=== PATIENT | male | born 1955 | race Caucasian/White ===

== ENCOUNTER 2021-09-12 17:32 | Inpatient (IN) | payer MEDICAID ==
[~2021-09-12] VITALS: Ht 160 cm; Wt 69.0 kg
[~2021-09-12 17:32] MED LIST: ATOR20TA PO; LISI20TA28 PO; METF-1203 PO; NICO-668 BC; NICO-687 TD; OLAN5TAB29 PO; PALI156D IM; PIOG15TA67 PO
[2021-09-12] MEDS ORDERED: NICOTINE POLACRILEX 2 MG LOZENGE BC PRN (20:20)
[2021-09-12] MEDS ORDERED: acetaminophen 325mg tablet PO PRN ×2 (20:20)
[2021-09-12] MEDS ORDERED: mag hydrox/Alum hydrox/simeth 30ml oral suspension PO PRN (20:20)
[2021-09-12] MEDS ORDERED: magnesium hydroxide 30ml (MOM) UD suspension PO PRN (20:20)
[2021-09-12] MEDS ORDERED: loperamide 2mg capsule PO PRN (20:20)
[2021-09-12] MEDS ORDERED: POLY119P2 PO (20:42)
[2021-09-12] MEDS ORDERED: CLON1TAB95 PO (20:44)
[2021-09-12 21:08] VITALS: BP 120/72
[2021-09-12] MEDS: atorvastatin 20mg tablet PO SCH (21:26)
[2021-09-12] MEDS: clonazePAM 1mg tablet PO SCH (21:26)
--- NOTE | 2021-09-12 22:19 | NUR ---
Nursing Admission Note: Patient is a 66 year old male admitted on a 5150 for GD. He was originally brought into [facility] via EMS after being found face down and unconscious. Patient is homeless; unable to contract for food, [place] [facility] and clothing. Hx of schizoaffective disorder with psychosis, DMII, HTN, hyperlipidemia. Patient is pleasant and cooperative with admission. He currently denies SI, HI, A/VH; does not appear to be responding to IS.
[2021-09-13 08:25] VITALS: BP 157/72
[2021-09-13] MEDS: polyethylene glycol 3350 17gm powd pack PO SCH (08:58)
[2021-09-13 09:29] LABS: CHOL/HDL RATIO 2.7 (0.00-4.99); CHOLESTEROL 105 MG/DL (0-200); HDL CHOLESTEROL 39 MG/DL (35-60); LDL CHOLESTEROL 53 MG/DL (50-100); TRIGLYCERIDES 98 MG/DL (20-135)
--- NOTE | 2021-09-13 16:08 | NUR ---
Nursing Progress Note: Legal hold: 5150 Client on involuntary status for GD Report received from nurseBasim RN with use of SBAR. Why are they here: Initial evaluation was done at [facility] in [place], [place]. Patient was brought in to [facility] ED for medical clearance by a mental health worker. Patient was admitted into the hospital, he was diagnosed had rhabdomyolysis. Patient was unable to access basic life necessities such as food longterm or clothing. History of schizoaffective disorder Assessment What has happened this shift: Pt spent most the time on his bed with headphones on sleeping. He was up for meals and snacks. Per the hospitalist "pt most likely could benefit from Metformin." A1c 7.9. Pt slept until breakfast. Then slept untlil the next meal or snack. Encouraged pt to shower. S/I, H/I: denies A/VH: smiled Sleep: Slept most of the shift ADL's: Needs shower Group attendance: N/A Were meds taken: Yes Any med S/E: None noted or observed Mental Status Exam Appearance: Older small male with balding greyish hair wearing personal clothing and shoes Eye contact: Fair Behavior: Isolative, cooperative Speech: poverty of speech Mood: Patient Affect: Congruent with mood Thought process: poverty of thought Thought Content: unable to access Cognition: Alert Insight: Poor Judgment: Poor Interventions PRN's used: N/A Therapeutic interventions: Provided physical assessment and MSE. Encouraged ADL's, medications administration/education/monitoring, q 15 safety checks. Restraints/seclusion/emergency medication: N/A Justification: Pt is in need of medication he requires medication adjustments and does not have a viable plan for discharge at this time.
[2021-09-13 20:11] VITALS: BP 130/63
[2021-09-13] MEDS: clonazePAM 1mg tablet PO SCH (20:20)
[2021-09-13] MEDS: atorvastatin 20mg tablet PO SCH (20:20)
--- NOTE | 2021-09-14 00:33 | NUR ---
Nursing Progress Note: Legal hold: 5150 Client on involuntary status for GD Report received from nurse, Jon RN with use of SBAR. Why are they here: Initial evaluation was done at [facility] in [place], [place]. Patient was brought in to [facility] ED for medical clearance by a mental health worker. Patient was admitted into the hospital, he was diagnosed had rhabdomyolysis. Patient was unable to access basic life necessities such as food longterm or clothing. History of schizoaffective disorder Assessment What has happened this shift: Pt spent most the time on his bed with headphones on and napping. He was up for snacks. Pt was med compliant and keep to him self. S/I, H/I: denies A/VH: smiled Sleep: See sleep assessment ADL's: Needs shower Group attendance: N/A Were meds taken: Yes Any med S/E: None noted or observed Mental Status Exam Appearance: Older small male with balding greyish hair wearing personal clothing and shoes Eye contact: Fair Behavior: Isolative, cooperative Speech: poverty of speech Mood: Patient Affect: Congruent with mood Thought process: poverty of thought Thought Content: unable to access Cognition: Alert Insight: Poor Judgment: Poor Interventions PRN's used: N/A Therapeutic interventions: Provided physical assessment and MSE. Encouraged ADL's, medications administration/education/monitoring, q 15 safety checks. Restraints/seclusion/emergency medication: N/A Justification: Pt is in need of medication he requires medication adjustments and does not have a viable plan for discharge at this time.
[2021-09-14 08:00] VITALS: BP 119/56
[2021-09-14] MEDS: polyethylene glycol 3350 17gm powd pack PO SCH (08:03)
--- NOTE | 2021-09-14 11:03 | NUR ---
Diabetes Consult: Noted Pt A1C 7.9 DM education not appropriate at this time given Pt condition. Will defer until Pt more appropriate. Addendum: 09/14/21 at 1104 by Lucas Harley - Trimmer And Borer Machine Operator RD Amended: Links added. Addendum: 09/14/21 at [address] I have reviewed and agree w/ note by Trimmer And Borer Machine OperatorHaider Maldonado RD
--- NOTE | 2021-09-14 16:52 | NUR ---
Nursing Progress Note: Legal hold: 5150 Client on involuntary status for GD Report received from nurse, Delmy RODRIGUEZ with use of SBAR. Why are they here: Initial evaluation was done at [facility] in [place], [place]. Patient was brought in to [facility] ED for medical clearance by a mental health worker. Patient was admitted into the hospital, he was diagnosed had rhabdomyolysis. Patient was unable to access basic life necessities such as food jail or clothing. History of schizoaffective disorder Assessment What has happened this shift: Pt spent most the time on his bed with headphones on sleeping. He was up for meals and snacks. Pt slept until breakfast. Then slept until the next meal or snack. Encouraged pt to shower and patient did. Zeke isolates most of the time other than meals. S/I, H/I: denies A/VH: "I think so" Sleep: Slept most of the shift ADL's: showered today Group attendance: N/A Were meds taken: Yes Any med S/E: None noted or observed Mental Status Exam Appearance: Older small male with balding greyish hair wearing personal clothing and shoes Eye contact: Fair Behavior: Isolative, cooperative Speech: poverty of speech Mood: Patient Affect: Congruent with mood Thought process: poverty of thought Thought Content: unable to access, barley answers question with more than yes and no Cognition: Alert Insight: Poor Judgment: Poor Interventions PRN's used: N/A Therapeutic interventions: Provided physical assessment and MSE. Encouraged ADL's, medications administration/education/monitoring, q 15 safety checks. Restraints/seclusion/emergency medication: N/A Justification: Zeke has failed several out patient treatment plans and [facility] Today patient is unable to plan for a safe discharge, Zeke just shruggs his shoulders when asked about food, clothing or jail.
[2021-09-14] MEDS: clonazePAM 1mg tablet PO SCH (20:10)
[2021-09-14] MEDS: risperiDONE 0.5mg tablet PO SCH (20:10)
[2021-09-14] MEDS: atorvastatin 20mg tablet PO SCH (20:10)
[2021-09-14 20:33] VITALS: BP 102/56
[2021-09-14 20:34] VITALS: BP 105/56
--- NOTE | 2021-09-15 00:35 | NUR ---
Nursing Progress Note: Legal hold: 5150 Client on involuntary status for GD Report received from nurse, Claire RODRIGUEZ with use of SBAR. Why are they here: Initial evaluation was done at [facility] in [place], [place]. Patient was brought in to [facility] ED for medical clearance by a mental health worker. Patient was admitted into the hospital, he was diagnosed had rhabdomyolysis. Patient was unable to access basic life necessities such as food retirement or clothing. History of schizoaffective disorder Assessment What has happened this shift: Pt isolated to his room sleeping awakened for meds and was compliant. Pt woke a couple times during the shift and sat in his room. S/I, H/I: denies A/VH: "I think so" Sleep: Slept most of the shift ADL's: showered today Group attendance: N/A Were meds taken: Yes Any med S/E: None noted or observed Mental Status Exam Appearance: Older small male with balding greyish hair wearing personal clothing and shoes Eye contact: Fair Behavior: Isolative, cooperative Speech: poverty of speech Mood: Patient Affect: Congruent with mood Thought process: poverty of thought Thought Content: unable to access, barley answers question with more than yes and no Cognition: Alert Insight: Poor Judgment: Poor Interventions PRN's used: N/A Therapeutic interventions: Provided physical assessment and MSE. Encouraged ADL's, medications administration/education/monitoring, q 15 safety checks. Restraints/seclusion/emergency medication: N/A Justification: Zeke has failed several out patient treatment plans and is in need of evaluation for more [facility]. Today patient is unable to plan for a safe discharge, Zeke just shruggs his shoulders when asked about food, clothing or retirement.
[2021-09-15 07:57] VITALS: BP 114/61
[2021-09-15] MEDS: polyethylene glycol 3350 17gm powd pack PO SCH (08:03)
--- NOTE | 2021-09-15 13:51 | NUR ---
Pt attended group today. We talked about reframing thoughts utilizing a picture where they had to write down what thoughts there were struggling with today. Patients then constructed Vision Pages/Collages with inspiring words and pictures to work toward rewiring these thoughts into positive affirmations. Pt. was hesitant at first to engage in the collage process but once he started looking through magazines he got into it. He was able to share that the pictures were images that made him happy. He had an ice cream, a picture of the t.v personality Ynes,and a pretty garden. His thought content appeared WNL and his thought process appeared a bit scattered. He was alert and oriented X 4. His demeanor remained calm and compliant throughout the group. He seemed to enjoy himself, he was open to this Test Data Developer helping him put his collage together. He shared with the group about his collage with this Test Data Developer's help as well. Brandi Patel LCSW
--- NOTE | 2021-09-15 14:39 | NUR ---
Nursing Progress Note: Legal hold: 5150 Client on involuntary status for GD Report received from nurse, Rosario RN with use of SBAR. Why are they here: Initial evaluation was done at [facility] in [place], [place]. Patient was brought in to [facility] ED for medical clearance by a mental health worker. Patient was admitted into the hospital, he was diagnosed had rhabdomyolysis. Patient was unable to access basic life necessities such as food fdc or clothing. History of schizoaffective disorder Assessment What has happened this shift: Pt was up for breakfast. Pt was cooperative with his scheduled Miralax. Pt attended morning group. Spoke with SERGIO Chu about reinstating pt's diabetic meds that he was taking in the community. Pt's Hgb A1c was 7.9. Metformin 1000 mg BID, Actos 30 mg, and lisinopril 10 mg daily restarted. Pt denies depression/SI/HI/VH. Pt does have AH. Pt denies CAH. Pt states there is one voice which is negative. Sometimes the voice will say threatening things like, "you'll be ." Pt smiles and states, "but I don't believe them, they don't own me." Pt briefly laughs. Positive reinforcement provided for pt's insight and ability to dismiss the voices. S/I, H/I: Pt denies A/VH: +AH Sleep: Pt slept 7.25 hours last night per noc shift report, pt naps intermittently throughout the day. ADL's: Independent Group attendance: yes Were meds taken: Yes; just Metamucil ordered this morning. Any med S/E: None noted or reported. Mental Status Exam Appearance: Older small male with balding greyish hair wearing personal clothing and shoes Eye contact: Good Behavior: Pleasant, cooperative, listens to radio headphones. Speech: clear, audible, normal rate & rhythm. Mood: Euthymic Affect: Appropriate to situation. Thought process: Linear Thought Content: He doesn't believe the voices, they don't own him. Cognition: A/O X 3 Insight: Fair Judgment: Fair Interventions PRN's used: None Therapeutic interventions: 1:1 assessment, therapeutic conversation, active listening, medication administration/education/monitoring, encouragement to participate in unit activities and attend groups, provided distraction, redirection, positive reinforcement, and Q15 minute safety checks. Restraints/seclusion/emergency medication: N/A Justification: Zeke has failed several out patient treatment plans and is in need of evaluation for more county services. Pt is unable to formulate a viable plan for food, clothing, or fdc.
[2021-09-15] MEDS ORDERED: metFORMIN 500mg tablet PO ONE (17:00)
--- NOTE | 2021-09-15 17:16 | NUR ---
Group Art Tx, Continued: Patient was able to focus and complete the activity as presented. He was able to share during the group process and was supportive of others. His topic shared focused on thinking positive thoughts, his spiritual beliefs and the use of his humor. *Please refer to the [facility] Case Notes for entire overview. Cristal Esparza MA, DIRECTOR INPATIENT HEADACHE PROGRAM #[id number] [facility] Art Therapist Addendum: 09/15/21 at 1718 by Cristal Esparza SS Amended: Links added.
[2021-09-15] MEDS: atorvastatin 20mg tablet PO SCH (20:10)
[2021-09-15] MEDS: clonazePAM 1mg tablet PO SCH (20:11)
[2021-09-15] MEDS: risperiDONE 0.5mg tablet PO SCH (20:11)
[2021-09-15 20:34] VITALS: BP 137/68
--- NOTE | 2021-09-16 00:13 | NUR ---
Nursing Progress Note: Legal hold: 5150 Client on involuntary status for GD Report received from nurse, Claire RODRIGUEZ with use of SBAR. Why are they here: Initial evaluation was done at [facility] in [place], [place]. Patient was brought in to [facility] ED for medical clearance by a mental health worker. Patient was admitted into the hospital, he was diagnosed had rhabdomyolysis. Patient was unable to access basic life necessities such as food group home or clothing. History of schizoaffective disorder Assessment What has happened this shift: Pt isolated to his room sleeping awakened for meds and was compliant. Pt woke a couple times during the shift and sat in his room. S/I, H/I: denies A/VH: "I think so" Sleep: See sleep assessment ADL's: showered today Group attendance: N/A Were meds taken: Yes Any med S/E: None noted or observed Mental Status Exam Appearance: Older small male with balding greyish hair wearing personal clothing and shoes Eye contact: Fair Behavior: Isolative, cooperative Speech: poverty of speech Mood: Patient Affect: Congruent with mood Thought process: poverty of thought Thought Content: unable to access, barley answers question with more than yes and no Cognition: Alert Insight: Poor Judgment: Poor Interventions PRN's used: N/A Therapeutic interventions: Provided physical assessment and MSE. Encouraged ADL's, medications administration/education/monitoring, q 15 safety checks. Restraints/seclusion/emergency medication: N/A Justification: Zeke has failed several out patient treatment plans and is in need of evaluation for more [facility]. Today patient is unable to plan for a safe discharge, Zeke just shruggs his shoulders when asked about food, clothing or group home.
[2021-09-16] MEDS: pioglitazone 15mg tablet PO SCH (07:05)
[2021-09-16] MEDS: polyethylene glycol 3350 17gm powd pack PO SCH (07:05)
[2021-09-16] MEDS: metFORMIN 500mg tablet PO SCH ×2 (07:05→17:21)
[2021-09-16] MEDS: lisinopril 10 MG tablet PO SCH (07:34)
[2021-09-16 08:00] VITALS: BP 119/61
--- NOTE | 2021-09-16 13:50 | NUR ---
Initial: Pt admit DX schizoaffective d/o per EMR. Hx T2DM A1C 7.9% ed deferred at this time given DX. PO ~100% avg carb controlled meals meeting needs. LBM 09/14. No nutrition intervention at this time. Will continue to monitor. Rec: 1. continue carb controlled diet 2. routine bowel care 3. weekly wts Addendum: 09/16/21 at [address] Initial: Pt admit DX schizoaffective d/o per EMR. Hx T2DM A1C 7.9% ed deferred at this time given DX. PO ~100% avg carb controlled meals meeting needs. LB 09/14. No nutrition intervention at this time. Will continue to monitor. Rec: 1. continue carb controlled diet 2. routine bowel care 3. daily Glu checks given hx T2DM A1C 7.9% 4. weekly wts Addendum: 09/16/21 at [address] Amended: Links added.
--- NOTE | 2021-09-16 14:21 | NUR ---
Pt. attended group today. We discussed Radical Acceptance and Distress Tolerance skills. This Pulmonary Specialist led a visualization that Pt. participated in. We completed a Self-Care Wheel exercise as well. Pt. engaged well in the group today, he tracked with what was going on and participated in all aspects of the group. He reported that he goes for walks, journals and prays to self care and to relieve feelings of tension and anxiety. He was alert and oriented X 4. His thought content and thought process were WNL. His demeanor was calm, compliant and pleasant to work with. Brandi Patel LCSW
--- NOTE | 2021-09-16 15:30 | NUR ---
Nursing Progress Note: Legal hold: 5250 Client on involuntary status for GD Report received from nurse, Rosario RODRIGUEZ with use of SBAR. Why are they here: Initial evaluation was done at [facility] in [place], [place]. Patient was brought in to [facility] ED for medical clearance by a mental health worker. Patient was admitted into the hospital, he was diagnosed had rhabdomyolysis. Patient was unable to access basic life necessities such as food fpc or clothing. History of schizoaffective disorder Assessment What has happened this shift: Pt was up for breakfast and cooperative with medications. Pt attended afternoon group. Pt stated he had some negative voices in the morning but they faded in the afternoon. Pt states the voices are "negative." They say things regarding like that someone is going to , pt states, "but I say that's nonsense!" Pt c/o 9/10 toenail pain this morning and was given PRN Tylenol 650 mg with some effect. Pt is asking to have his toenails trimmed. Pt has long, thick, yellow toenails. Pt is a diabetic. An order was put in for a wound care consult and a message was left with inpatient wound care. S/I, H/I: Pt denies A/VH: +AH Sleep: Pt slept 8.75 hours last night per noc shift report, pt naps intermittently throughout the day. ADL's: Independent Group attendance: Yes Were meds taken: Yes Any med S/E: None noted or reported. Mental Status Exam Appearance: Older small male with balding greyish hair wearing personal clothing and slippers Eye contact: Good Behavior: Pleasant, cooperative, listens to radio headphones. Speech: Clear, audible, normal rate & rhythm. Mood: Euthymic Affect: Appropriate to situation. Thought process: Linear Thought Content: He needs his toenails trimmed. Cognition: A/O X 3 Insight: Fair Judgment: Fair Interventions PRN's used: None Therapeutic interventions: 1:1 assessment, therapeutic conversation, active listening, medication administration/education/monitoring, encouragement to participate in unit activities and attend groups, provided distraction, redirection, positive reinforcement, and Q15 minute safety checks. Restraints/seclusion/emergency medication: N/A Justification: Zeke has failed several out patient treatment plans and is in need of evaluation for more county services. Pt is unable to formulate a viable plan for food, clothing, or fpc.
--- NOTE | 2021-09-16 15:47 | NUR ---
Group Art Tx, continued: Patient was motivated and engaged in the activity and journaling. His thought process was somewhat concrete and his journaling simplified. He was positive and seemed to feel content within himself. He was able to listen to others, however, there was limited interaction or conversation initiated with his peers. *Please refer to the [facility] Case Notes for entire overview. Cristal Esparza MA, IMAGING ACCOUNT MANAGER #[id number] [facility] Art Therapist Addendum: 09/16/21 at 1549 by Cristal Esparza SS Amended: Links added.
[2021-09-16 19:47] VITALS: BP 113/57
[2021-09-16] MEDS: risperiDONE 0.5mg tablet PO SCH (20:08)
[2021-09-16] MEDS: clonazePAM 1mg tablet PO SCH (20:08)
[2021-09-16] MEDS: atorvastatin 20mg tablet PO SCH (20:08)
--- NOTE | 2021-09-17 01:32 | NUR ---
Nursing Progress Note: Legal hold: 5250 Client on involuntary status for GD Report received from nurse, Claire RODRIGUEZ with use of SBAR. Why are they here: Initial evaluation was done at [facility] in [place], [place]. Patient was brought in to [facility] ED for medical clearance by a mental health worker. Patient was admitted into the hospital, he was diagnosed had rhabdomyolysis. Patient was unable to access basic life necessities such as food correction or clothing. History of schizoaffective disorder Assessment What has happened this shift: Pt isolated to his bed all evening. When approached for 1:1, pt is friendly and cooperative but is confused about where he is. Pts only complaint is his toe nails needing to be clipped. When asked if he hears voices, he replies, I dont think so. All hs meds taken without issue. S/I, H/I: Pt denies A/VH: I dont think so Sleep: see sleep assessment ADL's: Independent Group attendance: Yes Were meds taken: Yes Any med S/E: None noted or reported. Mental Status Exam Appearance: Older small male with balding greyish hair wearing personal clothing and slippers Eye contact: Good Behavior: Pleasant, cooperative Speech: Clear, audible, normal rate & rhythm. Mood: Euthymic Affect: Appropriate to situation. Thought process: Linear Thought Content: He needs his toenails trimmed. Cognition: A/O X 3 Insight: Fair Judgment: Fair Interventions PRN's used: None Therapeutic interventions: 1:1 assessment, therapeutic conversation, active listening, medication administration/education/monitoring, encouragement to participate in unit activities and attend groups, provided distraction, redirection, positive reinforcement, and Q15 minute safety checks. Restraints/seclusion/emergency medication: N/A Justification: Zeke has failed several out patient treatment plans and is in need of evaluation for more county services. Pt is unable to formulate a viable plan for food, clothing, or correction.
[2021-09-17 07:30] VITALS: BP 133/66
[2021-09-17] MEDS: pioglitazone 15mg tablet PO SCH (07:42)
[2021-09-17] MEDS: lisinopril 10 MG tablet PO SCH (07:42)
[2021-09-17] MEDS: metFORMIN 500mg tablet PO SCH ×2 (07:42→16:22)
[2021-09-17] MEDS: polyethylene glycol 3350 17gm powd pack PO SCH (08:00)
--- NOTE | 2021-09-17 09:29 | NUR ---
BS checked Addendum: 09/17/21 at 2961 by Rena Lao RN Amended: Links added.
--- NOTE | 2021-09-17 14:29 | NUR ---
Pt. attended group today. We started the group talking about things we are grateful for then talked about resiliency and hope. Patients shared what they were grateful for and what they were hoping for. Pt. quietly engaged in the group today. His demeanor was calm and compliant. He listened well to his peers and this Bank Examiner and only shared when it was asked of him to share his thoughts. He easily shared what he was thankful for which was his niece and her family. He was hoping for a god place to live. He was alert and oriented X 4. His thought content and thought process was WNL. He appeared to enjoy socializing shown by his engagement in the conversation. Brandi Patel LCSW
--- NOTE | 2021-09-17 16:43 | NUR ---
Nursing Progress Note: Zeke Legal hold: 5250 Client on involuntary status for GD Report received from nurse, Ceci RODRIGUEZ with use of SBAR. Why are they here: Initial evaluation was done at [facility] in [place], [place]. Patient was brought in to [facility] ED for medical clearance by a mental health worker. Patient was admitted into the hospital, he was diagnosed with rhabdomyolysis. Patient was unable to access basic life necessities such as food penitentiary or clothing. History of schizoaffective disorder. Assessment What has happened this shift: Pt was received sitting in the dining room. He received coffee with condiments possible effecting BS which was 254. After breakfast he was provide with active listening and positive encouragement during 1:1 assessment. He endorses AH not telling me to do anything just a lot of talking, he denies SI,HI. Pt. reports he was admitted d/t fell and hit my head in my living room. He reports no plan for DC and asked, Did they find me a place? Pt. ate his meals in the dining and observed interacting minimally with cohorts. He c/o toenail discomfort; magazine writer f/u with prior request for Tx with wound care r/t long, thick, yellow toenails. Pt. attended group this morning. Pt. participated in snacks today. No s/sx of hypo or hyperglycemia this shift. S/I, H/I: Denies A/VH: Endorses AH, Denies VH Sleep: Pt slept 8.25 hours per noc shift, intermittently throughout the day. ADL's: Independent Group attendance: Yes Were meds taken: Yes Any med S/E: None noted or reported. Mental Status Exam Appearance: Older male, disheveled, wearing personal clothing Eye contact: Good Behavior: Pleasant, cooperative. Speech: Clear. Mood: Euthymic Affect: Congruent with mood. Thought process: Linear Thought Content: Resting or napping Cognition: A/O X 3 Insight: Fair Judgment: Fair Interventions PRN's used: None Therapeutic interventions: 1:1 assessment, therapeutic conversation, active listening, medication administration/education/monitoring, encouragement to participate in unit activities and attend groups, provided distraction, redirection, positive reinforcement, and Q15 minute safety checks. Restraints/seclusion/emergency medication: N/A Justification: Zeke has failed several out patient treatment plans and is in need of evaluation for more [facility] services. Pt is unable to formulate a viable plan for food, clothing, or penitentiary.
[2021-09-17 19:34] VITALS: BP 118/67
[2021-09-17] MEDS: clonazePAM 1mg tablet PO SCH (20:24)
[2021-09-17] MEDS: atorvastatin 20mg tablet PO SCH (20:24)
[2021-09-17] MEDS: risperiDONE 0.5mg tablet PO SCH (20:24)
--- NOTE | 2021-09-18 04:04 | NUR ---
Nursing Progress Note: Zeke Legal hold: 5250 Client on involuntary status for GD Report received from nurse, Basim RODRIGUEZ with use of SBAR. Why are they here: Initial evaluation was done at [facility] in [place], [place]. Patient was brought in to [facility] ED for medical clearance by a mental health worker. Patient was admitted into the hospital, he was diagnosed with rhabdomyolysis. Patient was unable to access basic life necessities such as food longterm or clothing. History of schizoaffective disorder. Assessment What has happened this shift: Patient was found sleeping at beginning of shift. Patients sister called for an update and to talk to patient. Patient got up to talk to sister and go to snack time. Patient sat in community room and watched tv with other patients. Patient took all scheduled medications and then went back to bed. S/I, H/I: Denies A/VH: Endorses AH, Denies VH Sleep: See sleep assessment ADL's: Independent Group attendance: Yes Were meds taken: Yes Any med S/E: None noted or reported. Mental Status Exam Appearance: Older male, disheveled, wearing personal clothing Eye contact: Good Behavior: Pleasant, cooperative. Speech: Clear. Mood: Euthymic Affect: Congruent with mood. Thought process: Linear Thought Content: Resting or napping Cognition: A/O X 3 Insight: Fair Judgment: Fair Interventions PRN's used: None Therapeutic interventions: 1:1 assessment, therapeutic conversation, active listening, medication administration/education/monitoring, encouragement to participate in unit activities and attend groups, provided distraction, redirection, positive reinforcement, and Q15 minute safety checks. Restraints/seclusion/emergency medication: N/A Justification: Zeke has failed several out patient treatment plans and is in need of evaluation for more county services. Pt is unable to formulate a viable plan for food, clothing, or longterm.
[2021-09-18 07:32] VITALS: BP 104/55
[2021-09-18] MEDS: pioglitazone 15mg tablet PO SCH (07:44)
[2021-09-18] MEDS: polyethylene glycol 3350 17gm powd pack PO SCH (07:44)
[2021-09-18] MEDS: metFORMIN 500mg tablet PO SCH ×2 (07:44→17:20)
[2021-09-18] MEDS: lisinopril 10 MG tablet PO SCH (07:45)
--- NOTE | 2021-09-18 17:13 | NUR ---
Nursing Progress Note: Zeke Legal hold: 5250 Client on involuntary status for GD Report received from nurse, Alcie RODRIGUEZ with use of SBAR. Why are they here: Initial evaluation was done at [facility] in [place], [place]. Patient was brought in to [facility] ED for medical clearance by a mental health worker. Patient was admitted into the hospital, he was diagnosed with rhabdomyolysis. Patient was unable to access basic life necessities such as food care home or clothing. History of schizoaffective disorder. Assessment What has happened this shift: Pt was received sleeping in his room. He awoke to receive his medications and FBS was 175. Provider notified per protocol as FBS have remained over 160; provider acknowledged notification. Assessment 1:1 completed at the bedside active listening provided. Pt. reports he was admitted d/t I fell in my apartment he denies all SI,HI and endorses AH c/o I just have so many people talking some times. Discussed future plans and pt. reported Im not sure. Pt. presents as friendly and cooperative during interaction and ate his meals in the dining. Pt. interacts minimally with cohorts but does sit with in groups at tables. Pt. approached telegraphic typewriter mechanic c/o toenail discomfort; toe nails continue to be over grown and PRN Tylenol given. No s/sx of hypo or hyperglycemia observed. Pt. attended group this morning. Tx nurse on unit and is unable to trim pt. nails r/t lack of certification; nail files were left. Classics Professor approached pt to assist filing but pt. wants to try later after his nap. S/I, H/I: Denies A/VH: Endorses AH, Denies VH Sleep: Napped intermittently ADL's: Independent Group attendance: Yes Were meds taken: Yes Any med S/E: None noted or reported. Mental Status Exam Appearance: Older man, disheveled and wearing personal clothing Eye contact: Good Behavior: Pleasant, cooperative. Speech: Clear. Mood: Euthymic Affect: Congruent with mood. Thought process: Linear Thought Content: Resting or napping Cognition: A/O X 3 Insight: Fair Judgment: Fair Interventions PRN's used: None Therapeutic interventions: 1:1 assessment, therapeutic conversation, active listening, medication administration/education/monitoring, encouragement to participate in unit activities and attend groups, provided distraction, redirection, positive reinforcement, and Q15 minute safety checks. Restraints/seclusion/emergency medication: N/A Justification: Zeke has failed several outpatient treatment plans and is in need of evaluation for more county services. Pt is unable to formulate a viable plan for food, clothing, or care home.
[2021-09-18 19:00] VITALS: BP 118/65
[2021-09-18] MEDS: risperiDONE 0.5mg tablet PO SCH (20:26)
[2021-09-18] MEDS: clonazePAM 1mg tablet PO SCH (20:26)
[2021-09-18] MEDS: atorvastatin 20mg tablet PO SCH (20:26)
--- NOTE | 2021-09-18 20:30 | NUR ---
Patient awake and sitting in the dinning room eating a snack. Pt is smiling and reports to be in good spirit. Patient states he is not having SI, but he is hearing voices that tell him to harm himself. When asked specifically what they say, he states "they say all that suicide stuff". Pt denies visual hallucinations. Addendum: 09/19/21 at 0518 by Dara Rodriguez RN After eating snack, patient returned to room to sleep. Appeared to be restless in bed until approximately 0100. After this time; pt appeared to sleep soundly.
[2021-09-19 07:55] VITALS: BP 113/54
[2021-09-19] MEDS: pioglitazone 15mg tablet PO SCH (08:43)
[2021-09-19] MEDS: metFORMIN 500mg tablet PO SCH ×2 (08:43→17:25)
[2021-09-19] MEDS: linagliptin 5mg tablet PO SCH (08:44)
[2021-09-19] MEDS: lisinopril 5mg tablet PO SCH (08:48)
[2021-09-19] MEDS: polyethylene glycol 3350 17gm powd pack PO SCH (08:48)
--- NOTE | 2021-09-19 17:11 | NUR ---
Nursing Progress Note: Zeke Legal hold: 5250 Client on involuntary status for GD Report received from nurse, Alice RODRIGUEZ with use of SBAR. Why are they here: Initial evaluation was done at [facility] in [place], [place]. Patient was brought in to [facility] ED for medical clearance by a mental health worker. Patient was admitted into the hospital, he was diagnosed with rhabdomyolysis. Patient was unable to access basic life necessities such as food assisted or clothing. History of schizoaffective disorder. Assessment What has happened this shift: Received pt sitting in group room at shift change. Patient sits by himself at the table in the morning attempting to wake up. LEIGHANN Cesar informs RN that patient had sugar in his coffee prior to FBS, 221. Patient denies AVH. Patient appears depressed and looks down during most interactions. S/I, H/I: Denies A/VH: Denies. Sleep: Napped intermittently ADL's: Independent Group attendance: NA Were meds taken: Yes Any med S/E: None noted or reported. Mental Status Exam Appearance: Older man, disheveled and wearing personal clothing Eye contact: Intermittent. Behavior: Pleasant, cooperative. Speech: Clear. Mood: Euthymic Affect: Congruent with mood. Thought process: Linear Thought Content: Resting or napping Cognition: A/O X 3 Insight: Fair Judgment: Fair Interventions PRN's used: None Therapeutic interventions: 1:1 assessment, therapeutic conversation, active listening, medication administration/education/monitoring, encouragement to participate in unit activities and attend groups, provided distraction, redirection, positive reinforcement, and Q15 minute safety checks. Restraints/seclusion/emergency medication: N/A Justification: Zeke has failed several outpatient treatment plans and is in need of evaluation for more [facility] services. Pt is unable to formulate a viable plan for food, clothing, or assisted.
[2021-09-19] MEDS: clonazePAM 1mg tablet PO SCH (20:22)
[2021-09-19] MEDS: atorvastatin 20mg tablet PO SCH (20:23)
[2021-09-19] MEDS: risperiDONE 0.5mg tablet PO SCH (20:23)
[2021-09-19 20:42] VITALS: BP 124/67
--- NOTE | 2021-09-19 23:32 | NUR ---
Nursing Progress Note: Zeke Legal hold: 5250 Client on involuntary status for GD Report received from nurse, Basim RODRIGUEZ with use of SBAR. Why are they here: Initial evaluation was done at [facility] in [place], [place]. Patient was brought in to [facility] ED for medical clearance by a mental health worker. Patient was admitted into the hospital, he was diagnosed with rhabdomyolysis. Patient was unable to access basic life necessities such as food penitentiary or clothing. History of schizoaffective disorder. Assessment What has happened this shift: Pt was sitting in his room looking out the window at change of shift. Pt stayed in his room and did not inter act with peers or staff. He was med compliant and went to bed. S/I, H/I: Denies A/VH: Denies. Sleep: See sleep assessment ADL's: Independent Group attendance: NA Were meds taken: Yes Any med S/E: None noted or reported. Mental Status Exam Appearance: Older man, disheveled and wearing personal clothing Eye contact: Intermittent. Behavior: Pleasant, cooperative. Speech: Clear. Mood: Euthymic Affect: Congruent with mood. Thought process: Linear Thought Content: Resting or napping Cognition: A/O X 3 Insight: Fair Judgment: Fair Interventions PRN's used: None Therapeutic interventions: 1:1 assessment, therapeutic conversation, active listening, medication administration/education/monitoring, encouragement to participate in unit activities and attend groups, provided distraction, redirection, positive reinforcement, and Q15 minute safety checks. Restraints/seclusion/emergency medication: N/A Justification: Zeke has failed several outpatient treatment plans and is in need of evaluation for more county services. Pt is unable to formulate a viable plan for food, clothing, or penitentiary.
[2021-09-20 07:00] VITALS: BP 125/60
[2021-09-20] MEDS: metFORMIN 500mg tablet PO SCH ×2 (07:48→17:44)
[2021-09-20] MEDS: pioglitazone 15mg tablet PO SCH (07:48)
[2021-09-20] MEDS: lisinopril 5mg tablet PO SCH (07:50)
[2021-09-20] MEDS: linagliptin 5mg tablet PO SCH (07:51)
[2021-09-20] MEDS: polyethylene glycol 3350 17gm powd pack PO SCH (07:51)
--- NOTE | 2021-09-20 17:02 | NUR ---
Nursing Progress Note: Zeke Legal hold: 5250 Client on involuntary status for GD Report received from nurse, Alice RODRIGUEZ with use of SBAR. Why are they here: Initial evaluation was done at [facility] in [place], [place]. Patient was brought in to [facility] ED for medical clearance by a mental health worker. Patient was admitted into the hospital, he was diagnosed with rhabdomyolysis. Patient was unable to access basic life necessities such as food fdc or clothing. History of schizoaffective disorder. Assessment What has happened this shift: Received pt sleeping in bed at shift change. Patient gets out of bed early to have coffee. Patient states that it has been a boring and depressing day. Patient sitting at his window looking out in the afternoon. When asked if he hears voices, he states, I would like to say no, and patient starts laughing. Patient explains that he did hear some this morning, but forgot what they were saying. S/I, H/I: Denies A/VH: +AH Sleep: Napped intermittently ADL's: Independent Group attendance: NA Were meds taken: Yes Any med S/E: None noted or reported. Mental Status Exam Appearance: Older man, disheveled and wearing personal clothing Eye contact: Intermittent. Behavior: Pleasant, cooperative. Speech: Clear. Mood: Euthymic Affect: Congruent with mood. Thought process: Linear Thought Content: Resting or napping Cognition: A/O X 3 Insight: Fair Judgment: Fair Interventions PRN's used: None Therapeutic interventions: 1:1 assessment, therapeutic conversation, active listening, medication administration/education/monitoring, encouragement to participate in unit activities and attend groups, provided distraction, redirection, positive reinforcement, and Q15 minute safety checks. Restraints/seclusion/emergency medication: N/A Justification: Zeke has failed several outpatient treatment plans and is in need of evaluation for more county services. Pt is unable to formulate a viable plan for food, clothing, or fdc.
[2021-09-20 19:10] VITALS: BP 120/59
[2021-09-20] MEDS: clonazePAM 1mg tablet PO SCH (20:08)
[2021-09-20] MEDS: atorvastatin 20mg tablet PO SCH (20:08)
[2021-09-20] MEDS: risperiDONE 0.5mg tablet PO SCH (20:08)
--- NOTE | 2021-09-21 00:13 | NUR ---
Nursing Progress Note: Zeke Legal hold: 5250 Client on involuntary status for GD Report received from nurse, Basim RODRIGUEZ with use of SBAR. Why are they here: Initial evaluation was done at [facility] in [place], [place]. Patient was brought in to [facility] ED for medical clearance by a mental health worker. Patient was admitted into the hospital, he was diagnosed with rhabdomyolysis. Patient was unable to access basic life necessities such as food usp or clothing. History of schizoaffective disorder. Assessment What has happened this shift: Pt was sitting in his room looking out the window at change of shift. Pt stayed in his room and did not inter act with peers or staff. He was med compliant and went to bed. S/I, H/I: Denies A/VH: Denies. Sleep: See sleep assessment ADL's: Independent Group attendance: NA Were meds taken: Yes Any med S/E: None noted or reported. Mental Status Exam Appearance: Older man, disheveled and wearing personal clothing Eye contact: Intermittent. Behavior: Pleasant, cooperative. Speech: Clear. Mood: Euthymic Affect: Congruent with mood. Thought process: Linear Thought Content: Resting or napping Cognition: A/O X 3 Insight: Fair Judgment: Fair Interventions PRN's used: None Therapeutic interventions: 1:1 assessment, therapeutic conversation, active listening, medication administration/education/monitoring, encouragement to participate in unit activities and attend groups, provided distraction, redirection, positive reinforcement, and Q15 minute safety checks. Restraints/seclusion/emergency medication: N/A Justification: Zeke has failed several outpatient treatment plans and is in need of evaluation for more county services. Pt is unable to formulate a viable plan for food, clothing, or usp.
[2021-09-21] MEDS: lisinopril 5mg tablet PO SCH (07:59)
[2021-09-21] MEDS: linagliptin 5mg tablet PO SCH (07:59)
[2021-09-21] MEDS: pioglitazone 15mg tablet PO SCH (08:00)
[2021-09-21] MEDS: metFORMIN 500mg tablet PO SCH ×2 (08:00→17:59)
[2021-09-21] MEDS: polyethylene glycol 3350 17gm powd pack PO SCH (08:03)
[2021-09-21 08:36] VITALS: BP 121/71
--- NOTE | 2021-09-21 17:28 | NUR ---
Nursing Progress Note: Zeke Legal hold: 5250 Client on involuntary status for GD Report received from nurse, Delmy RODRIGUEZ with use of SBAR. Why are they here: Initial evaluation was done at [facility] in [place], [place]. Patient was brought in to [facility] ED for medical clearance by a mental health worker. Patient was admitted into the hospital, he was diagnosed with rhabdomyolysis. Patient was unable to access basic life necessities such as food half-way or clothing. History of schizoaffective disorder. Assessment What has happened this shift: Pt up and visible at times. Pt pleasant upon approach. Pt has depressed affect and pt continues to complain of depression and anxiety r/t auditory hallucinations. Pt interacts only minimal with staff and peers. Pt out of room for meals and groups. S/I, H/I: Denies A/VH: Endorses AH, Denies VH Sleep: Napped intermittently ADL's: Independent Group attendance: Yes Were meds taken: Yes Any med S/E: None noted or reported. Mental Status Exam Appearance: Older man, disheveled and wearing personal clothing Eye contact: Good Behavior: Pleasant, cooperative. Speech: Clear. Mood: Euthymic Affect: Congruent with mood. Thought process: Linear Thought Content: Resting or napping Cognition: A/O X 3 Insight: Fair Judgment: Fair Interventions PRN's used: None Therapeutic interventions: 1:1 assessment, therapeutic conversation, active listening, medication administration/education/monitoring, encouragement to participate in unit activities and attend groups, provided distraction, redirection, positive reinforcement, and Q15 minute safety checks. Restraints/seclusion/emergency medication: N/A Justification: Zeke has failed several outpatient treatment plans and is in need of evaluation for more county services. Pt is unable to formulate a viable plan for food, clothing, or half-way.
[2021-09-21] MEDS: risperiDONE 0.5mg tablet PO SCH (20:03)
[2021-09-21] MEDS: clonazePAM 1mg tablet PO SCH (20:03)
[2021-09-21] MEDS: atorvastatin 20mg tablet PO SCH (20:03)
[2021-09-21 20:23] VITALS: BP 122/67
--- NOTE | 2021-09-22 00:30 | NUR ---
Nursing Progress Note: Noah Legal hold: 5250 Client on involuntary status for GD Report received from Nurse Basim RODRIGUEZ with use of SBAR Why they are here: Pt was BIB EMS to [facility]. Pt was found outside in the cold sleeping in the rain. . Pt presented disorganized and unable to formulate a plan for his basic needs. Pt was withdrawn and difficult to obtain information. Pt was diagnosed with schizophrenia in 2017. Mother has schizophrenia. Assessment What has happened this shift: Patient was up in his room at change of shift sitting in front of the window. He poked his head out of room to look at the clock. Pt ate snack in the group room and was med compliant. He returned to his room after snack and meds. S/I, H/I: Endorses SI, Denies HI A/VH: Endorses AH, Denies VH Sleep: See sleep assessment ADL's: Independent prompting required at times Group attendance: No Were meds taken: Yes Any med S/E: None Mental Status Exam Appearance: Young male with disheveled hair combed over his face, and dressed in street clothes Eye contact: Poor Behavior: Agitated, guarded Speech: Mumbling, word salad Mood: Restless, irritable Affect: Blunted Thought process: Disorganized, delusional Thought Content: Responding to IS Cognition: A&O X2 Insight: Poor Judgment: Poor Interventions PRN's used: Therapeutic interventions: Maintained a safe and therapeutic environment, ensured contract for safety, provided clear and simple instructions, attempted to orient to reality, monitored behaviors and need for intervention and redirection, provided clear boundaries for behaviors, and maintained Q 15min safety checks. Restraints/seclusion/emergency medication: N/A Justification of Continued Inpatient Treatment: Per SERGIO Chu, pt. continues to require medication adjustments and does not have a viable plan for discharge at this time.
[2021-09-22 08:10] VITALS: BP 140/65
[2021-09-22] MEDS: linagliptin 5mg tablet PO SCH (08:12)
[2021-09-22] MEDS: polyethylene glycol 3350 17gm powd pack PO SCH (08:12)
[2021-09-22] MEDS: pioglitazone 15mg tablet PO SCH (08:12)
[2021-09-22] MEDS: metFORMIN 500mg tablet PO SCH ×2 (08:13→17:59)
[2021-09-22] MEDS: lisinopril 5mg tablet PO SCH (08:15)
--- NOTE | 2021-09-22 09:04 | NUR ---
CM Presenting Issues: [facility] had planned to petition for LPS Conservatorship of pt. Interventions: Clinician contacted [facility], left requesting update on conservatorship process. Plan: Clinician will continue to monitor & engage [facility] & [facility] in pre-dcp activities for pt. HUSEYIN RichardsW Addendum: 09/22/21 at 0933 by Val Christopher SS Amended: Links added.
[2021-09-22 09:11] VITALS: BP 109/58
--- NOTE | 2021-09-22 13:35 | NUR ---
Nursing Progress Note: Legal hold: 5250 Client on involuntary status for GD Report received from nurse with use of SBAR: JENNIFER Ponce Why are they here: Initial evaluation was done at [facility] in [place], [place]. Patient was brought in to [facility] ED for medical clearance by a mental health worker. Patient was admitted into the hospital, he was diagnosed with rhabdomyolysis. Patient was unable to access basic life necessities such as food nursing home or clothing. History of schizoaffective disorder. Assessment What has happened this shift: Received pt. sleeping in bed at the beginning of the shift, he was awoken by staff and required direction to attend breakfast in the Group Room. Pt. sat up for a time afterwards watching TV, before returning to bed for a short nap. 1:1 was completed later at bedside as pt. sat looking out he window in his room. Pt. denies any S/I or depression, however he states, "I was depressed yesterday." When questioned by this entry writer regarding the cause of his depression, pt. reports it was r/t being on the unit. He would like to leave, but understands that he does not have a safe place to discharge to at this time. Pt. then goes on to talk in a paranoid delusional manner about the last place he lived, and how he believes one of his roommates there wanted to hill him. Pt. states, "He followed me to the hospital and onto the psychiatric posadas." When questioned by this entry writer whether pt. feels safe on this unit, he reports that he does. Pt. attends groups and naps intermittently during the day. S/I, H/I: Denies A/VH: Denies, does not appear to be internally preoccupied Sleep: Sleep hours are 7.5, and pt. naps intermittently during the day ADL's: Pt. requires some direction and encouragement Group attendance: Yes Were meds taken: Yes Any med S/E: None Mental Status Exam Appearance: Neat and appropriately dressed Eye contact: Good Behavior: Cooperative and withdrawn Speech: Soft, responds to direct questions only Mood: Pleasant Affect: Blunted Thought process: Linear Thought Content: Paranoid delusions Cognition: A&O X3 Insight: Poor Judgment: Poor Interventions PRN's used: None Therapeutic interventions: Introduced self and established rapport, maintained a safe and therapeutic environment, ensured contract for safety, provided clear and simple instructions, provided direction as needed and positive encouragement, and maintained Q 15min safety checks. Restraints/seclusion/emergency medication: N/A Justification of Continued Inpatient Treatment: Per SERGIO Chu, pt. continues to require a safe and supportive environment.
--- NOTE | 2021-09-22 14:33 | NUR ---
Pt. attended group today. Today's group was about the different communications styles i.e passive, aggressive and assertive. We discussed what the characteristics of each style was. We then discussed where they saw themselves at now and where they would like to be with their communication style. Patients were led through an activity where they paired up with a peer to actively listen to them share about themselves to practice the skill of actively listening. Pt. shared worked with a partner well, he did struggle to remember everything that she told him. He shared about his life easily to his partner. He was alert and oriented X 4. This Founder And Chief Technical Officer did not observe any delusional thought content today but Pt. spoke minimally so it was difficult to assess. His thought process was linear. He was calm, compliant and pleasant to work with. Brandi Patel LCSW
--- NOTE | 2021-09-22 17:03 | NUR ---
Group Art Tx, Continued: Patient was able to engage and complete the activity, both drawing and journaling. Patient was also able to share during the group process. He was grateful for simple things in his life. Patient was able to listen and interact occasionally with his peers. *Please refer to the [employer] Group Notes for entire overview. Cristal Esparza MA, PAINT CREW SUPERVISOR #[id number] [facility] Art Therapist Addendum: 09/22/21 at 1704 by Cristal Esparza SS Amended: Links added.
[2021-09-22] MEDS: atorvastatin 20mg tablet PO SCH (20:13)
[2021-09-22] MEDS: clonazePAM 1mg tablet PO SCH (20:13)
[2021-09-22] MEDS: risperiDONE 0.5mg tablet PO SCH (20:13)
[2021-09-22 20:38] VITALS: BP 122/67
--- NOTE | 2021-09-22 23:59 | NUR ---
Nursing Progress Note: oNah Legal hold: 5250 Client on involuntary status for GD Report received from Nurse Basim RODRIGUEZ with use of SBAR Why they are here: Pt was BIB EMS to [facility]. Pt was found outside in the cold sleeping in the rain. . Pt presented disorganized and unable to formulate a plan for his basic needs. Pt was withdrawn and difficult to obtain information. Pt was diagnosed with schizophrenia in 2017. Mother has schizophrenia. Assessment What has happened this shift: Patient was up in his room at change of shift sitting in front of the window. Pt ate snack in the group room and was med compliant. He returned to his room after snack and meds. S/I, H/I: Endorses SI, Denies HI A/VH: Endorses AH, Denies VH Sleep: See sleep assessment ADL's: Independent prompting required at times Group attendance: No Were meds taken: Yes Any med S/E: None Mental Status Exam Appearance: Young male with disheveled hair combed over his face, and dressed in street clothes Eye contact: Poor Behavior: Agitated, guarded Speech: Mumbling, word salad Mood: Restless, irritable Affect: Blunted Thought process: Disorganized, delusional Thought Content: Responding to IS Cognition: A&O X2 Insight: Poor Judgment: Poor Interventions PRN's used: Therapeutic interventions: Maintained a safe and therapeutic environment, ensured contract for safety, provided clear and simple instructions, attempted to orient to reality, monitored behaviors and need for intervention and redirection, provided clear boundaries for behaviors, and maintained Q 15min safety checks. Restraints/seclusion/emergency medication: N/A Justification of Continued Inpatient Treatment: SERGIO Jones, pt. continues to require medication adjustments and does not have a viable plan for discharge at this time.
[2021-09-23 07:41] VITALS: BP 111/45
[2021-09-23] MEDS: pioglitazone 15mg tablet PO SCH (07:59)
[2021-09-23 08:00] VITALS: BP_SYST 111
[2021-09-23] MEDS: metFORMIN 500mg tablet PO SCH (08:00)
[2021-09-23] MEDS: lisinopril 5mg tablet PO SCH (08:00)
[2021-09-23] MEDS: linagliptin 5mg tablet PO SCH (08:01)
[2021-09-23] MEDS ORDERED: LISI5TAB22 PO ×2 (08:09)
[2021-09-23] MEDS ORDERED: METF-1203 PO ×2 (08:09)
[2021-09-23] MEDS ORDERED: PIOG15TA67 PO ×2 (08:09)
[2021-09-23] MEDS ORDERED: LINA5TAB4 PO ×3 (08:09→11:44)
[2021-09-23] MEDS ORDERED: RISP0.5T65 PO ×2 (08:09)
[2021-09-23] MEDS: polyethylene glycol 3350 17gm powd pack PO SCH (08:18)
--- NOTE | 2021-09-23 09:27 | NUR ---
Reassessment: Pt continues w/ adequate PO intake ~100% avg carb controlled meals meeting needs. LBM 09/21. No nutrition intervention at this time. Will continue to monitor. Rec: 1. continue carb controlled diet 2. routine bowel care 3. daily Glu checks given hx T2DM A1C 7.9% 4. weekly wts Addendum: 09/23/21 at [address] Amended: Links added.
[2021-09-23] MEDS ORDERED: METF-436 PO (11:44)
[2021-09-23] MEDS ORDERED: LISI20TA28 PO (11:44)
[2021-09-23] MEDS ORDERED: PIOG30TA72 PO (11:44)
[2021-09-23] MEDS ORDERED: RISP1TAB98 PO (11:44)
== END 2021-09-23 09:00 | disposition home or self-care (01) | DRG 750 ==
LOC: ADULT MH 19:56
PROVIDERS: ADMIT Psychiatry & Neurology Neurology with Special Qualifications in Child Neurology; ATTEND Psychiatry & Neurology Neurology with Special Qualifications in Child Neurology
DX: F25.9 Schizoaffective disorder, unspecified (principal); E11.9 Type 2 diabetes mellitus without complications; I10 Essential (primary) hypertension; E78.5 Hyperlipidemia, unspecified; F32.A Depression, unspecified; K59.00 Constipation, unspecified; Z91.410 Personal history of adult physical and sexual abuse; Z91.51 Personal history of suicidal behavior; Z87.891 Personal history of nicotine dependence; Z56.0 Unemployment, unspecified; Z79.4 Long term (current) use of insulin; Z88.8 Allergy status to other drugs, medicaments and biological substances; Z79.84 Long term (current) use of oral hypoglycemic drugs
CPT/HCPCS: 36415; 80061; 82948; 83036; 87081

== ENCOUNTER 2021-09-23 10:27 | Inpatient (IN) | payer MEDICAID ==
[~2021-09-23] VITALS: Ht 160 cm; Wt 73.0 kg
[~2021-09-23 10:27] MED LIST changes: +CLON1TAB95 PO; +LINA5TAB4 PO; -LISI20TA28 PO; +LISI5TAB22 PO; -NICO-668 BC; -NICO-687 TD; -OLAN5TAB29 PO; -PALI156D IM; +POLY119P2 PO; +RISP0.5T65 PO
--- NOTE | 2021-09-23 10:50 | NUR ---
Pt. placed on 5150 for GD by [facility] and brought to [facility] as direct admit. Pt. is unable to access basic life necessities such as food, halfway, and clothing, and unable to take medications as prescribed. [facility] wants to pursue conservatorship. Admission interview and physical assessment done.
[2021-09-23] MEDS ORDERED: acetaminophen 325mg tablet PO PRN ×2 (11:05)
[2021-09-23] MEDS ORDERED: mag hydrox/Alum hydrox/simeth 30ml oral suspension PO PRN (11:05)
[2021-09-23] MEDS ORDERED: loperamide 2mg capsule PO PRN (11:05)
[2021-09-23] MEDS ORDERED: magnesium hydroxide 30ml (MOM) UD suspension PO PRN (11:05)
[2021-09-23] MEDS ORDERED: RISP1TAB98 PO (11:44)
[2021-09-23] MEDS ORDERED: METF-436 PO (11:44)
[2021-09-23] MEDS ORDERED: LINA5TAB4 PO (11:44)
[2021-09-23] MEDS ORDERED: LISI20TA28 PO (11:44)
[2021-09-23] MEDS ORDERED: PIOG30TA72 PO (11:44)
[2021-09-23] MEDS: lisinopril 5mg tablet PO SCH (12:46)
[2021-09-23] MEDS: polyethylene glycol 3350 17gm powd pack PO SCH (12:48)
[2021-09-23] MEDS: pioglitazone 15mg tablet PO SCH (12:50)
[2021-09-23] MEDS ORDERED: FLU VACC QS2021-22(6MOS UP)/PF 60 MCG/0.5 ML SYRINGE IM ONE (16:00)
--- NOTE | 2021-09-23 17:58 | NUR ---
Nursing Progress Note: Legal hold: 5150 Client on involuntary status for GD Report received from nurse with use of SBAR: JENNIFER Ponce Why are they here: Pt. placed on 5150 for GD by [facility] and brought to [facility] as direct admit. Pt. is unable to access basic life necessities such as food, fdc, and clothing, and unable to take medications as prescribed. [facility] wants to pursue conservatorship. Assessment What has happened this shift: RN received pt. asleep in bed at start of shift. Pt. awoke for breakfast and took all medications. Pt. aware that he is being discharged this AM. Pt. picked up by [facility] regional truck driver. Pt. discharged to [facility] crisis unit and placed on 5150 for GD and brought back to [facility]. [facility] to conserve pt. Admission and physical assessments done. Pt. attends snack and art group. Pt. socially withdrawn. Pt. napped in the afternoon. S/I, H/I: Denies A/VH: Denies Sleep: Sleep hours are 9 and pt. naps intermittently during the day ADL's: Pt. requires some direction and encouragement Group attendance: Afternoon art group. Were meds taken: Yes Any med S/E: Fatigue. Mental Status Exam Appearance: Disheveled, with unshaven facial hair, but clean and appropriately dressed Eye contact: Good Behavior: Cooperative but socially withdrawn. Napping in his room but attends groups. Speech: WNL Mood: Euthymic Affect: Flat Thought process: Linear Thought Content: Circumstantial Cognition: A&O X3 Insight: Poor Judgment: Poor Interventions PRN's used: None Therapeutic interventions: Introduced self and established rapport, maintained a safe and therapeutic environment, ensured contract for safety, provided clear and simple instructions, provided direction as needed and positive encouragement, and maintained Q 15min safety checks. Restraints/seclusion/emergency medication: N/A Justification of Continued Inpatient Treatment: SERGIO Jones, pt. continues to require a safe and supportive environment.
[2021-09-23] MEDS: metFORMIN 500mg tablet PO SCH (18:21)
[2021-09-23] MEDS: risperiDONE 0.5mg tablet PO SCH (20:34)
[2021-09-23] MEDS: atorvastatin 20mg tablet PO SCH (20:34)
[2021-09-23] MEDS: clonazePAM 1mg tablet PO SCH (20:35)
[2021-09-23 20:54] VITALS: BP 107/61
--- NOTE | 2021-09-24 01:22 | NUR ---
Nursing Progress Note: Legal hold: 5150 Client on involuntary status for GD Report received from nurse with use of SBAR: JENNIFER Ponce Why are they here: Pt. placed on 5150 for GD by [facility] and brought to [facility] as direct admit. Pt. is unable to access basic life necessities such as food, half-way, and clothing, and unable to take medications as prescribed. [facility] wants to pursue conservatorship. Assessment What has happened this shift: Patient was found sleeping in bed at beginning of shift. Patient spent shift isolating in room. Patient did not interact with other patients or participate in snack time. Patient did take all night medications and returned to bed. S/I, H/I: Denies A/VH: Denies Sleep: See sleep assessment ADL's: Pt. requires some direction and encouragement Group attendance: n/a Were meds taken: Yes Any med S/E: Fatigue. Mental Status Exam Appearance: Disheveled, with unshaven facial hair, but clean and appropriately dressed Eye contact: Good Behavior: Cooperative but socially withdrawn. Napping in his room but attends groups. Speech: WNL Mood: Euthymic Affect: Flat Thought process: Linear Thought Content: Circumstantial Cognition: A&O X3 Insight: Poor Judgment: Poor Interventions PRN's used: None Therapeutic interventions: Introduced self and established rapport, maintained a safe and therapeutic environment, ensured contract for safety, provided clear and simple instructions, provided direction as needed and positive encouragement, and maintained Q 15min safety checks. Restraints/seclusion/emergency medication: N/A Justification of Continued Inpatient Treatment: Per SERGIO Chu, pt. continues to require a safe and supportive environment.
--- NOTE | 2021-09-24 07:15 | NUR ---
Diabetes Consult: Noted Pt A1C 7.9 09/13 of this month. DM education not appropriate at this time given Pt condition. Will defer until Pt more appropriate. Addendum: 09/24/21 at [address] Amended: Links added.
[2021-09-24 07:33] VITALS: BP 120/60
[2021-09-24] MEDS: linagliptin 5mg tablet PO SCH (07:37)
[2021-09-24] MEDS: lisinopril 5mg tablet PO SCH (07:37)
[2021-09-24] MEDS: metFORMIN 500mg tablet PO SCH ×2 (07:37→17:57)
[2021-09-24] MEDS: pioglitazone 15mg tablet PO SCH (07:37)
[2021-09-24] MEDS: polyethylene glycol 3350 17gm powd pack PO SCH (07:39)
--- NOTE | 2021-09-24 17:40 | NUR ---
Nursing Progress Note: Legal hold: 5150 Client on involuntary status for GD Report received from nurse with use of SBAR: JENNIFER Ponce Why are they here: Pt. placed on 5150 for GD by [place] [facility] and brought to [facility] as direct admit. Pt. is unable to access basic life necessities such as food, halfway, and clothing, and unable to take medications as prescribed. [facility] wants to pursue conservatorship. Assessment What has happened this shift: RN received pt. asleep in bed at start of shift. Pt.s accu check was 159 this AM. Pt. awoke for breakfast and took all medications. 1:1 done at bedside, pt. states, I feel fine. Pt. gives minimal information during interview. Pt. denies all psych symptoms. Pt. found napping frequently during the day. S/I, H/I: Denies A/VH: Denies Sleep: Pt. slept 7 hrs on NOC and pt. naps intermittently during the day ADL's: Pt. requires some direction and encouragement Group attendance: No Were meds taken: Yes Any med S/E: Fatigue Mental Status Exam Appearance: Disheveled, with unshaven facial hair, but clean and appropriately dressed in casual attire. Eye contact: Good Behavior: Cooperative but socially withdrawn. Isolates to his room and naps most of the day. Speech: WNL Mood: Euthymic Affect: Flat Thought process: Linear Thought Content: Circumstantial Cognition: A&O X3 Insight: Poor Judgment: Poor Interventions PRN's used: None Therapeutic interventions: Introduced self and established rapport, maintained a safe and therapeutic environment, ensured contract for safety, provided clear and simple instructions, provided direction as needed and positive encouragement, and maintained Q 15min safety checks. Restraints/seclusion/emergency medication: N/A Justification of Continued Inpatient Treatment: Per SERGIO Chu, pt. continues to require a safe and supportive environment.
[2021-09-24 19:12] VITALS: BP 128/83
[2021-09-24] MEDS: clonazePAM 1mg tablet PO SCH (20:26)
[2021-09-24] MEDS: atorvastatin 20mg tablet PO SCH (20:27)
[2021-09-24] MEDS: risperiDONE 0.5mg tablet PO SCH (20:27)
--- NOTE | 2021-09-25 02:50 | NUR ---
Nursing Progress Note: Legal hold: 5150 Client on involuntary status for GD Report received from nurse with use of SBAR: JENNIFER White Why are they here: Pt. placed on 5150 for GD by [facility] and brought to [facility] as direct admit. Pt. is unable to access basic life necessities such as food, prison, and clothing, and unable to take medications as prescribed. [facility] wants to pursue conservatorship. Assessment What has happened this shift: Patient was found sleeping in bed at beginning of shift. Patient spent shift isolating in room. Patient only came out once to ask for headphones and returned to room. Patient took all night medications and a snack from nurse and went to bed. S/I, H/I: Denies A/VH: Denies Sleep: See sleep assessment ADL's: Pt. requires some direction and encouragement Group attendance: n/a Were meds taken: Yes Any med S/E: Fatigue. Mental Status Exam Appearance: Disheveled, with unshaven facial hair, but clean and appropriately dressed Eye contact: Good Behavior: Cooperative but socially withdrawn. Napping in his room . Speech: WNL Mood: Euthymic Affect: Flat Thought process: Linear Thought Content: Circumstantial Cognition: A&O X3 Insight: Poor Judgment: Poor Interventions PRN's used: None Therapeutic interventions: Introduced self and established rapport, maintained a safe and therapeutic environment, ensured contract for safety, provided clear and simple instructions, provided direction as needed and positive encouragement, and maintained Q 15min safety checks. Restraints/seclusion/emergency medication: N/A Justification of Continued Inpatient Treatment: SERGIO Jones, pt. continues to require a safe and supportive environment.
[2021-09-25] MEDS: pioglitazone 15mg tablet PO SCH (07:39)
[2021-09-25] MEDS: linagliptin 5mg tablet PO SCH (07:40)
[2021-09-25] MEDS: metFORMIN 500mg tablet PO SCH ×2 (07:40→17:54)
[2021-09-25] MEDS: lisinopril 5mg tablet PO SCH (07:40)
[2021-09-25] MEDS: polyethylene glycol 3350 17gm powd pack PO SCH (07:42)
[2021-09-25 08:00] VITALS: BP 107/59
--- NOTE | 2021-09-25 17:37 | NUR ---
Nursing Progress Note: Legal hold: 5150 Client on involuntary status for GD Report received from nurse with use of SBAR: Asuncion Shirley RN Why are they here: Pt. placed on 5150 for GD [facility] and brought to [facility] as direct admit. Pt. is unable to access basic life necessities such as food, half-way, and clothing, and unable to take medications as prescribed. [facility] wants to pursue conservatorship. Assessment What has happened this shift: RN received pt. asleep in bed at start of shift. Pt.s accu check was 139 this AM. Pt. awoke for breakfast and took all medications. 1:1 done at bedside, pt. states reports some anxiety and depression r/t Germán coming up. RN asked pt. if he felt sad about possibly being in the hospital during Germán, pt. states, no. Pt. states, my grandmas birthday is coming up, she was born in 1898 She lived to . Pt. denies all psych symptoms. Pt. isolated to his room most of the day, sitting in his chair looking out the window or resting in bed. S/I, H/I: Denies A/VH: Denies Sleep: Pt. slept 6.5 hrs on NOC and pt. napped intermittently during the day ADL's: Pt. requires prompting. Group attendance: No Were meds taken: Yes Any med S/E: Fatigue Mental Status Exam Appearance: Disheveled, with unshaven facial hair, but clean and appropriately dressed in casual attire. Eye contact: Good Behavior: Cooperative but socially withdrawn. Isolates to his room and naps most of the day. Speech: WNL Mood: Euthymic Affect: Flat Thought process: Linear with some poverty of thought. Thought Content: Some sentimental thinking. Mostly circumstantial. Cognition: A&O X3 Insight: Poor Judgment: Poor Interventions PRN's used: None Therapeutic interventions: Introduced self and established rapport, maintained a safe and therapeutic environment, ensured contract for safety, provided clear and simple instructions, provided direction as needed and positive encouragement, and maintained Q 15min safety checks. Restraints/seclusion/emergency medication: N/A Justification of Continued Inpatient Treatment: Per SERGIO Chu, pt. continues to require a safe and supportive environment.
[2021-09-25 19:00] VITALS: BP 129/69
[2021-09-25] MEDS: atorvastatin 20mg tablet PO SCH (20:43)
[2021-09-25] MEDS: risperiDONE 0.5mg tablet PO SCH (20:43)
[2021-09-25] MEDS: clonazePAM 1mg tablet PO SCH (20:43)
--- NOTE | 2021-09-26 05:18 | NUR ---
Nursing Progress Note: Legal hold: 5150 Client on involuntary status for GD Report received from nurse with use of SBAR: Asuncion Shirley RN Why are they here: Pt. placed on 5150 for GD by [facility] and brought to [facility] as direct admit. Pt. is unable to access basic life necessities such as food, custodial, and clothing, and unable to take medications as prescribed. [facility] wants to pursue conservatorship. Assessment What has happened this shift: ESSENTIALS: -Pt.s 5250 needs to be served by 10am today. -Pt. is a daily accu check. -Dr. Horton wants wound care to trim pt.s nails. Order placed. Please f/u. RN received pt. awake and sitting in the chair in his room and looking out the window. 1:1 done at bedside, pt. reports feeling good but gives minimal information during interview. Pt. denies all psych symptoms. Pt. observed listening to his headphones, RN asked pt. if he wanted to shower, pt. refused, states he will tomorrow. Pt. eventually fell asleep. S/I, H/I: Denies A/VH: Denies Sleep: See sleep hours. ADL's: Pt. requires prompting. Group attendance: NA Were meds taken: Yes Any med S/E: Denies Mental Status Exam Appearance: Disheveled, with unshaven facial hair, but clean and appropriately dressed in casual attire. Eye contact: Good Behavior: Cooperative but socially withdrawn. Isolates to his room all shift, listening to headphones and looking out his window. Speech: WNL Mood: Euthymic Affect: Flat Thought process: Linear with some poverty of thought. Thought Content: Circumstantial. Cognition: A&O X3 Insight: Poor Judgment: Poor Interventions PRN's used: None Therapeutic interventions: Introduced self and established rapport, maintained a safe and therapeutic environment, ensured contract for safety, provided clear and simple instructions, provided direction as needed and positive encouragement, and maintained Q 15min safety checks. Restraints/seclusion/emergency medication: N/A Justification of Continued Inpatient Treatment: Per SERGIO Chu, pt. continues to require a safe and supportive environment.
[2021-09-26] MEDS: metFORMIN 500mg tablet PO SCH ×2 (08:12→18:04)
[2021-09-26] MEDS: pioglitazone 15mg tablet PO SCH (08:12)
[2021-09-26] MEDS: linagliptin 5mg tablet PO SCH (08:12)
[2021-09-26] MEDS: polyethylene glycol 3350 17gm powd pack PO SCH (08:12)
[2021-09-26] MEDS: lisinopril 5mg tablet PO SCH (08:13)
[2021-09-26 08:49] VITALS: BP 115/65
--- NOTE | 2021-09-26 12:55 | NUR ---
Nursing Progress Note: Legal hold: 525 Client on involuntary status for GD Report received from nurse with use of SBAR: Asuncion Bruner RN Why are they here: Pt. placed on 5150 for GD by [place] [facility] and brought to [facility] as direct admit. Pt. is unable to access basic life necessities such as food, group home, and clothing, and unable to take medications as prescribed. [facility] wants to pursue conservatorship. Assessment What has happened this shift: Received pt. sleeping in bed at the beginning of the shift, he awoke and attended breakfast in the Group Room. Pt. sat up for a time afterwards watching TV while wearing headphones, before returning to bed for a short nap. 1:1 was completed at bedside along with 5250 paperwork. Pt. reported that he is looking forward to being conserved, and does not plan to attend his scheduled court date on Tuesday. He denies any S/I, H/I, A/V/EARLY, and no delusional statements were made. Pt. does admit to some anxiety when questioned by this software writer, he states with an anxious smile, "Because you are here, I get nervous being around people." Pt. presents as withdrawn throughout the shift, and is not observed to be interacting with others. Pt. attends groups and naps intermittently during the day. S/I, H/I: Denies A/VH: Denies, does not appear to be internally preoccupied Sleep: Sleep hours are 5, and pt. naps intermittently during the day ADL's: Pt. requires some direction and encouragement Group attendance: Yes Were meds taken: Yes Any med S/E: None Mental Status Exam Appearance: Neat and appropriately dressed Eye contact: Good Behavior: Cooperative, guarded, and withdrawn Speech: Soft, responds to direct questions only Mood: Pleasant Affect: Constricted with brightening Thought process: Poverty of thought Thought Content: Goal oriented Cognition: A&O X3 Insight: Poor Judgment: Poor Interventions PRN's used: None Therapeutic interventions: Maintained a safe and therapeutic environment, ensured contract for safety, provided clear and simple instructions, provided direction as needed and positive encouragement, obtained daily blood glucose, and maintained Q 15min safety checks. Restraints/seclusion/emergency medication: N/A Justification of Continued Inpatient Treatment: [facility].
[2021-09-26 20:00] VITALS: BP 118/55
[2021-09-26] MEDS: risperiDONE 0.5mg tablet PO SCH (20:46)
[2021-09-26] MEDS: atorvastatin 20mg tablet PO SCH (20:46)
[2021-09-26] MEDS: clonazePAM 1mg tablet PO SCH (20:46)
--- NOTE | 2021-09-26 23:39 | NUR ---
Nursing Progress Note: Legal hold: 5150 Client on involuntary status for GD Report received from JENNIFER Webb with use of SBAR. Why are they here: Pt. placed on 5150 for GD by [place] [facility] and brought to [facility] as direct admit. Pt. is unable to access basic life necessities such as food, [facility], and clothing, and unable to take medications as prescribed. [facility] wants to pursue conservatorship. Assessment What has happened this shift: Patient primarily isolates in his room following shift change. Patient states he has been admiring the linda, now that it has moved out of view he expresses his concern that he is concerned about his future placement. He states he is depressed. Patient states "I prefer to live on my own." Patient denies S/I, H/I, or any hallucinations. Patients social interaction is poor. This patient suggested a shower to this patient. The patient declined, he states he will take on in the morning. Patient looks somewhat disheveled. He is odorous. S/I, H/I: Denies. A/VH: Denies. Sleep: See sleep hours. ADL's: Pt. requires prompting. Group attendance: No group on nights. Were meds taken: Yes, medication compliant. Any med S/E: None noted or observed. Mental Status Exam Appearance: Disheveled, Poor hygiene. Eye contact: Good Behavior: Isolative, non social. Speech: Quiet, normal rhythm. Mood: Euthymic. Affect: Flat Thought process: Linear with some poverty of thought. Thought Content: Circumstantial. Cognition: Alert and oriented X4. Insight: Poor. Judgment: Poor. Interventions PRN's used: None Therapeutic interventions: Introduced self and established rapport, maintained a safe and therapeutic environment, ensured contract for safety, provided clear and simple instructions, provided direction as needed and positive encouragement, and maintained Q 15min safety checks. Restraints/seclusion/emergency medication: N/A Justification of Continued Inpatient Treatment: SERGIO Jones, pt. continues to require a safe and supportive environment.
--- NOTE | 2021-09-27 07:27 | NUR ---
Initial: Pt admitted w/ schizophrenia per EMR. Pt currently on CCHO diet w/ mostly 100% intake of meals meeting needs. LBM 09/25 receiving routine Miralax. No nutrition intervention implemented at this time, will continue to monitor. Recs: 1. Continue CCHO diet as tolerated 2. Bowel care per rx 3. Weekly wts Addendum: 09/27/21 at [address] Amended: Links added.
[2021-09-27] MEDS: metFORMIN 500mg tablet PO SCH ×2 (07:56→17:48)
[2021-09-27] MEDS: linagliptin 5mg tablet PO SCH (07:57)
[2021-09-27] MEDS: pioglitazone 15mg tablet PO SCH (07:57)
[2021-09-27] MEDS: polyethylene glycol 3350 17gm powd pack PO SCH (07:57)
[2021-09-27] MEDS: lisinopril 5mg tablet PO SCH (07:58)
[2021-09-27 08:08] VITALS: BP 114/62
--- NOTE | 2021-09-27 16:34 | NUR ---
Nursing Progress Note: Legal hold: 5250 Client on involuntary status for GD Report received from JENNIFER Jenkins with use of SBAR. Why are they here: Pt. placed on 5150 for GD by [place] [facility] and brought to [facility] as direct admit. Pt. is unable to access basic life necessities such as food, fpc, and clothing, and unable to take medications as prescribed. [facility] wants to pursue conservatorship. Assessment What has happened this shift: Received patient in hallway while he was knocking on door to kitchen and yelling out I need coffee now, whos in there. Assisted patient with a cup of coffee and then ambulated with patient back to his room for blood glucose check. Blood Glucose 165 (fasting). Pleasant and interactive to verbal stimuli. Patient reports he slept well, and voices concern about discharge. Pt states When will I get out of here, and where will I go, can you tell me? Reassured patient that staff members will assist him with the details of his release before he is discharged. Encouraged patient to shower but refused. Isolates most of the time in his room or Community Meeting Room. S/I, H/I: Denies. A/VH: Denies. Sleep: AM nap x 3.25 hours. Slept 3 hours this afternoon. ADL's: Requires direction and encouragement with adls. Pt continues to refuses to shower. Group attendance: No group scheduled today. Were meds taken: Yes, without hesitation. Any med S/E: None noted or observed. Mental Status Exam Appearance: Disheveled, Poor hygiene. [place], in casual attire. Eye contact: Good Behavior: Cooperative, Isolates Speech: Quiet, normal rhythm. Mood: Euthymic. Affect: Flat Thought process: Linear with some poverty of thought. Thought Content: Perseveration regarding discharge. Cognition: Alert and oriented x4. Insight: Poor. Judgment: Poor. Interventions PRN's used: None Therapeutic interventions: Introduced self and established rapport, maintained a safe and therapeutic environment, ensured contract for safety, provided clear and simple instructions, provided direction as needed and positive encouragement, and maintained Q 15min safety checks, encouraged independence performance of adls. Restraints/seclusion/emergency medication: N/A Justification of Continued Inpatient Treatment: Per SERGIO Spencer, pt. continues to require a safe and supportive environment.
[2021-09-27 19:35] VITALS: BP 127/58
[2021-09-27] MEDS: clonazePAM 1mg tablet PO SCH (20:26)
[2021-09-27] MEDS: risperiDONE 0.5mg tablet PO SCH (20:26)
[2021-09-27] MEDS: atorvastatin 20mg tablet PO SCH (20:26)
--- NOTE | 2021-09-28 02:20 | NUR ---
Nursing Progress Note: Legal hold: 5250 Client on involuntary status for GD Report received from JENNIFER Webb with use of SBAR. Why are they here: Pt. placed on 5150 for GD by [facility] and brought to [facility] as direct admit. Pt. is unable to access basic life necessities such as food, fci, and clothing, and unable to take medications as prescribed. [facility] wants to pursue conservatorship. Assessment What has happened this shift: Pt in bed asleep at start of shift. Awakened for snack declined to go to group room. Took all meds. Pleasant and cooperative. Antonio SI A/V hallucinations. Pt describes mood as Tired went back to sleep S/I, H/I: Denies. A/VH: Denies. Sleep: Asleep at this time ADL's: Requires direction and encouragement with adls. Pt continues to refuses to shower. Group attendance: No group scheduled today. Were meds taken: Yes, without hesitation. Any med S/E: None noted or observed. Mental Status Exam Appearance: Disheveled, Poor hygiene. [place], in casual attire. Eye contact: Good Behavior: Cooperative, Isolates Speech: Quiet, normal rhythm. Mood: Euthymic. Affect: Flat Thought process: Linear with some poverty of thought. Thought Content: Perseveration regarding discharge. Cognition: Alert and oriented x4. Insight: Poor. Judgment: Poor. Interventions PRN's used: None Therapeutic interventions: Introduced self and established rapport, maintained a safe and therapeutic environment, ensured contract for safety, provided clear and simple instructions, provided direction as needed and positive encouragement, and maintained Q 15min safety checks, encouraged independence performance of adls. Restraints/seclusion/emergency medication: N/A Justification of Continued Inpatient Treatment: Per SERGIO Spencer, pt. continues to require a safe and supportive environment.
[2021-09-28] MEDS: metFORMIN 500mg tablet PO SCH ×2 (08:13→17:57)
[2021-09-28] MEDS: polyethylene glycol 3350 17gm powd pack PO SCH (08:14)
[2021-09-28] MEDS: pioglitazone 15mg tablet PO SCH (08:14)
[2021-09-28] MEDS: lisinopril 5mg tablet PO SCH (08:14)
[2021-09-28] MEDS: linagliptin 5mg tablet PO SCH (08:14)
[2021-09-28 08:58] VITALS: BP 104/64
--- NOTE | 2021-09-28 13:17 | NUR ---
PROBABLE CAUSE HEARING Patients Name: Zeke Barron Admission Date: 09/23/21 Date of 5150: 09/23/21 Written by: CCRU Criteria: DTS, DTO, GD Summary of Facts: At CCRU and unable to access basic life necessities such as food, senior living and clothing. Client is unable to take his meds as prescribed. Date of 5250: 09/26/21 Written by: Thais Criteria: GD Summary of Facts: Pt continues to not have a plan for food, clothing, senior living due to his mental illness. He has failed outpatient treatment Diagnosis: Schizoaffective disorder Behavior during past 48 HRS: Pt is cooperative on the unit and takes his medications. He is pleasant however he requires direction for essential activities such as adls and instrumental adls. He was unable to plan for dc even with the social workers help and he failed outpatient treatment at a board and care and a hotel. [facility] plans on conserving patient. FOOD: 100% SLEEPIN.5 hrs ADLS: need encouragement and directions LONG TERM: homeless MEDICATION DOSAGE FREQUENCY DURATION Klonopin 2 mg po q hs Risperdal 0.5 mg po q hs
--- NOTE | 2021-09-28 15:30 | NUR ---
Sent notes to [facility] Public [facility] for LPS evaluation. Muck Boss from [facility] picked up original LPS referral and copy of 5250 today. JAVIER Henderson
--- NOTE | 2021-09-28 17:18 | NUR ---
Nursing Progress Note: Legal hold: 5250 Client on involuntary status for GD Report received from JENNIFER Webb with use of SBAR. Why are they here: Pt. placed on 5150 for GD by [place] [facility] and brought to [facility] as direct admit. Pt. is unable to access basic life necessities such as food, detention, and clothing, and unable to take medications as prescribed. [facility] wants to pursue conservatorship. Assessment What has happened this shift: Patient was asleep at change of shift and up for breakfast. Patient is social at meals and then isolates in his room. Patient is malodorous. Patient was on the schedule to take a shower but did ended up being to late to take one. Patient denies hearing voices and denies SI/HI. Patient took several naps today. Patient was at the nurses station this evening attempting to have a ring removed from his pinky finger that is very tight. RN attempting with a ring cutter and as of this moment the ring cutter is not working. S/I, H/I: Denies. A/VH: Denies. Sleep: several naps today ADL's: Requires direction. No shower today. Group attendance: No Were meds taken: Yes Any med S/E: None noted or observed. Mental Status Exam Appearance: Disheveled, Poor hygiene, malodorous. Patient in green scrubs Eye contact: Good Behavior: Cooperative, Isolates Speech: Soft Mood: Euthymic. Affect: Flat Thought process: Linear Thought Content: Concerned about discharge Cognition: Alert and oriented x4. Insight: Poor. Judgment: Poor. Interventions PRN's used: None Therapeutic interventions: Introduced self and established rapport, maintained a safe and therapeutic environment, ensured contract for safety, provided clear and simple instructions, provided direction as needed and positive encouragement, and maintained Q 15min safety checks, encouraged independence performance of adls. Restraints/seclusion/emergency medication: N/A Justification of Continued Inpatient Treatment: Per SERGIO Spencer, pt. continues to require a safe and supportive environment.
[2021-09-28 19:08] VITALS: BP 141/67
[2021-09-28] MEDS: risperiDONE 0.5mg tablet PO SCH (20:32)
[2021-09-28] MEDS: atorvastatin 20mg tablet PO SCH (20:32)
[2021-09-28] MEDS: clonazePAM 1mg tablet PO SCH (20:32)
--- NOTE | 2021-09-29 02:32 | NUR ---
Nursing Progress Note: Legal hold: 5250 Client on involuntary status for GD Report received from JENNIFER Webb with use of SBAR. Why are they here: Pt. placed on 5150 for GD by [facility] and brought to [facility] as direct admit. Pt. is unable to access basic life necessities such as food, nursing home, and clothing, and unable to take medications as prescribed. [facility] wants to pursue conservatorship. Assessment What has happened this shift: Patient was found in bed at beginning of shift. Patient self isolated in room all shift. Patient was quiet and cooperative giving short and quiet answers when nurse attempted 1:1. Patient did not participate in snack time but did take all scheduled medications. Patient also finally changed clothes and allowed tech to wash others. S/I, H/I: Denies. A/VH: Denies. Sleep:See sleep assessment ADL's: Requires direction. No shower today. Group attendance: No Were meds taken: Yes Any med S/E: None noted or observed. Mental Status Exam Appearance: Disheveled, Poor hygiene, malodorous. Patient in green scrubs Eye contact: Good Behavior: Cooperative, Isolates Speech: Soft Mood: Euthymic. Affect: Flat Thought process: Linear Thought Content: Concerned about discharge Cognition: Alert and oriented x4. Insight: Poor. Judgment: Poor. Interventions PRN's used: None Therapeutic interventions: Introduced self and established rapport, maintained a safe and therapeutic environment, ensured contract for safety, provided clear and simple instructions, provided direction as needed and positive encouragement, and maintained Q 15min safety checks, encouraged independence performance of adls. Restraints/seclusion/emergency medication: N/A Justification of Continued Inpatient Treatment: Per SERGIO Spencer, pt. continues to require a safe and supportive environment.
[2021-09-29 07:00] VITALS: BP 97/45
[2021-09-29] MEDS: pioglitazone 15mg tablet PO SCH (07:50)
[2021-09-29] MEDS: linagliptin 5mg tablet PO SCH (07:50)
[2021-09-29] MEDS: metFORMIN 500mg tablet PO SCH ×2 (07:50→17:47)
[2021-09-29] MEDS: polyethylene glycol 3350 17gm powd pack PO SCH (07:51)
[2021-09-29] MEDS: lisinopril 5mg tablet PO SCH (08:00)
--- NOTE | 2021-09-29 09:48 | NUR ---
LPS INVESTIGATION Served Zeke his 5 day notice for petition of conservatorship. Assisted him with Zoom interview with Lisy Atkinson, [facility] Public Guardian. JAVIER Henderson
--- NOTE | 2021-09-29 16:01 | NUR ---
Group Art Tx, Continued: Patient was able to follow the directives and complete the activity. He selected a picture of a person crouched down in a corner of an abandoned looking house/room. Patient colored his picture slowly and carefully. He did not complete the entire sentence completion, He did write "I am happy to be alive." His mood was stable, some underlying uncertainty yet acceptance he was in "a safe place' and content. He lacked insight into how his picture selection might be a reflection or projection of some aspect of himeself. Please refer to the [employer] Notes for further detail/overview of session. Cristal Esparza MA, HVAC SALES REPRESENTATIVE #[id number] [facility], Art/Rec Therapist Addendum: 09/29/21 at 1603 by Cristal Esparza SS Amended: Links added.
--- NOTE | 2021-09-29 16:41 | NUR ---
Nursing Progress Note: Zeke Legal hold: 5250 Client on involuntary status for GD Report received from JENNIFER Ponce with use of SBAR. Why are they here: Pt. placed on 5150 for GD by [place] [facility] and brought to [facility] as direct admit. Pt. is unable to access basic life necessities such as food, chcf, and clothing, and unable to take medications as prescribed. [facility] wants to pursue conservatorship. Assessment What has happened this shift: Patient received sleeping in his room at shift change. Awoke for FBS check; result 124. Pt. received morning medication with his Lisinopril held d./t parameters, and proceeded to breakfast. Pt. receptive 1:1 assessment completed at the bedside. Pt. denies SI, HI. Pt. minimizes MH needs and reports Im here because I feel and hit my head Pt. presents as hopeless AEB statement I have no plan when I leave here, I have nowhere to go. Pt. ate his meals in the dining room and was observed interacting verbally with cohorts. Pt. spent some time in common area watching TV with peer. Pt did have a shower this shift. Pt. did attend group this shift. Pt. spent most of shift OOB. S/I, H/I: Denies. A/VH: Denies. Sleep: 8.5 hrs per NOC, one nap today ADL's: Indep, prompting at times Group attendance: Yes Were meds taken: Yes Any med S/E: None noted or observed. Mental Status Exam Appearance: Older male disheveled wearing green scrubs Eye contact: Good Behavior: Cooperative Speech: Soft Mood: I feel blah today Affect: Flat Thought process: Linear Thought Content: meal time Cognition: A/O x4. Insight: Poor. Judgment: Poor. Interventions PRN's used: None Therapeutic interventions: Introduced self and established rapport, maintained a safe and therapeutic environment, ensured contract for safety, provided clear and simple instructions, provided direction as needed and positive encouragement, and maintained Q 15min safety checks, encouraged independence performance of ADLs. Restraints/seclusion/emergency medication: N/A Justification of Continued Inpatient Treatment: Per SERGIO Spencer, pt. continues to require a safe and supportive environment.
[2021-09-29 19:56] VITALS: BP 119/66
[2021-09-29] MEDS: risperiDONE 0.5mg tablet PO SCH (20:58)
[2021-09-29] MEDS: clonazePAM 1mg tablet PO SCH (20:58)
[2021-09-29] MEDS: atorvastatin 20mg tablet PO SCH (20:59)
--- NOTE | 2021-09-30 02:40 | NUR ---
Nursing Progress Note: Zeke Legal hold: 5250 Client on involuntary status for GD Report received from JENNIFER Nash with use of SBAR. Why are they here: Pt. placed on 5150 for GD by [place] [facility] and brought to [facility] as direct admit. Pt. is unable to access basic life necessities such as food, custodial, and clothing, and unable to take medications as prescribed. [facility] wants to pursue conservatorship. Assessment What has happened this shift: Patient was received laying in bed at beginning of shift. Patient self isolated in room all shift. Patient did not leave to socialize with other patients or participate in snack time. Patient took all night medications and went back to sleep. S/I, H/I: Denies. A/VH: Denies. Sleep: See sleep assessment ADL's: Indep, prompting at times Group attendance: Yes Were meds taken: Yes Any med S/E: None noted or observed. Mental Status Exam Appearance: Older male disheveled wearing green scrubs Eye contact: Good Behavior: Cooperative Speech: Soft Mood: I feel blah today Affect: Flat Thought process: Linear Thought Content: meal time Cognition: A/O x4. Insight: Poor. Judgment: Poor. Interventions PRN's used: None Therapeutic interventions: Introduced self and established rapport, maintained a safe and therapeutic environment, ensured contract for safety, provided clear and simple instructions, provided direction as needed and positive encouragement, and maintained Q 15min safety checks, encouraged independence performance of ADLs. Restraints/seclusion/emergency medication: N/A Justification of Continued Inpatient Treatment: Per SERGIO Spencer, pt. continues to require a safe and supportive environment.
[2021-09-30] MEDS: linagliptin 5mg tablet PO SCH (07:43)
[2021-09-30] MEDS: pioglitazone 15mg tablet PO SCH (07:43)
[2021-09-30] MEDS: polyethylene glycol 3350 17gm powd pack PO SCH (07:43)
[2021-09-30] MEDS: metFORMIN 500mg tablet PO SCH ×2 (07:43→16:39)
[2021-09-30] MEDS: lisinopril 5mg tablet PO SCH (07:48)
[2021-09-30 08:00] VITALS: BP 100/60
--- NOTE | 2021-09-30 16:27 | NUR ---
Nursing Progress Note: Zeke Legal hold: 5250 Client on involuntary status for GD Report received from JENNIFER Ponce with use of SBAR. Why are they here: Pt. placed on 5150 for GD by [facility] and brought to [facility] as direct admit. Pt. is unable to access basic life necessities such as food, long-term, and clothing, and unable to take medications as prescribed. [facility] wants to pursue conservatorship. Assessment What has happened this shift: Patient received awake in the trejo. FBS checked results of 142, 1:1 assessment completed at the bedside. Pt. denies SI, HI, A/VH, he minimizes MH needs. Pt. is cooperative and open to communicating. He presents as delusional stating Im here because I fell. Pt. spent a lot of time in community room with cohorts but was observed keeping to himself and interacting minimally. He attended group with snack time today. Pt. spent most of his day awake either sitting in common area or sitting in his room. S/I, H/I: Denies. A/VH: Denies. Sleep: 7.15 hrs. per NOC, one nap today ADL's: Independent Group attendance: Yes Were meds taken: Yes Any med S/E: None noted or observed. Mental Status Exam Appearance: Older male disheveled wearing green scrubs Eye contact: Good Behavior: Cooperative Speech: Soft Mood: I feel okay today Affect: Flat Thought process: Linear Thought Content: Discharge date Cognition: A/O x4. Insight: Poor. Judgment: Poor. Interventions PRN's used: None Therapeutic interventions: Introduced self and established rapport, maintained a safe and therapeutic environment, ensured contract for safety, provided clear and simple instructions, provided direction as needed and positive encouragement, and maintained Q 15min safety checks, encouraged independence performance of ADLs. Restraints/seclusion/emergency medication: N/A Justification of Continued Inpatient Treatment: Per SERGIO Spencer, pt. continues to require a safe and supportive environment.
[2021-09-30 19:41] VITALS: BP 139/73
[2021-09-30] MEDS: clonazePAM 1mg tablet PO SCH (20:10)
[2021-09-30] MEDS: risperiDONE 0.5mg tablet PO SCH (20:11)
[2021-09-30] MEDS: atorvastatin 20mg tablet PO SCH (20:11)
--- NOTE | 2021-10-01 02:22 | NUR ---
Nursing Progress Note: Zeke Legal hold: 5250 Client on involuntary status for GD Report received from JENNIFER Mijares with use of SBAR. Why are they here: Pt. placed on 5150 for GD by [place] [facility] and brought to [facility] as direct admit. Pt. is unable to access basic life necessities such as food, skilled nursing, and clothing, and unable to take medications as prescribed. [facility] wants to pursue conservatorship. Assessment What has happened this shift: Patient was found sitting on edge of bed. Patient continued to sit there and stare off when nurse attempted to preform 1:1. Patient gave quiet short answers and would repeat questions back like he was confused and not quite sure what was going on. Patient left room for snack time but did not socialize with any one. Patient took night medications after asking nurse twice if they were his. Patient went to bed after snack. S/I, H/I: Denies. A/VH: Denies. Sleep: See sleep assessment ADL's: Independent Group attendance: Yes Were meds taken: Yes Any med S/E: None noted or observed. Mental Status Exam Appearance: Older male disheveled wearing green scrubs Eye contact: Good Behavior: Cooperative Speech: Soft Mood: I feel okay today Affect: Flat Thought process: Linear Thought Content: Discharge date Cognition: A/O x4. Insight: Poor. Judgment: Poor. Interventions PRN's used: None Therapeutic interventions: Introduced self and established rapport, maintained a safe and therapeutic environment, ensured contract for safety, provided clear and simple instructions, provided direction as needed and positive encouragement, and maintained Q 15min safety checks, encouraged independence performance of ADLs. Restraints/seclusion/emergency medication: N/A Justification of Continued Inpatient Treatment: Per SERGIO Spencer, pt. continues to require a safe and supportive environment.
[2021-10-01] MEDS: lisinopril 5mg tablet PO SCH (07:49)
[2021-10-01] MEDS: pioglitazone 15mg tablet PO SCH (07:49)
[2021-10-01] MEDS: metFORMIN 500mg tablet PO SCH ×2 (07:49→17:38)
[2021-10-01] MEDS: linagliptin 5mg tablet PO SCH (07:50)
[2021-10-01] MEDS: polyethylene glycol 3350 17gm powd pack PO SCH (07:50)
[2021-10-01 08:00] VITALS: BP 116/57
--- NOTE | 2021-10-01 15:56 | NUR ---
Nursing Progress Note: Legal hold: 5250 Client on involuntary status for GD Report received from nurse with use of SBAR: JENNIFER Ponce Why are they here: Pt. placed on 5150 for GD by [facility] and brought to [facility] as direct admit. Pt. is unable to access basic life necessities such as food, senior living, and clothing, and unable to take medications as prescribed. [facility] wants to pursue conservatorship. Assessment What has happened this shift: ESSENTIALS: -Pt. is a daily accu check. RN received pt. asleep in bed at start of shift. Pt. awoke for breakfast, and blood sugar taken and was 141. Pt. took all medications and ate all meals in the community room. 1:1 done in community room, pt. gives minimal information, stating, Im good and denies depression and anxiety. Pt. observed out in the milieu most of the day sitting in the community room listening to headphones. Pt. went outside with group to the patio. S/I, H/I: Denies A/VH: Denies Sleep: Pt. slept 8.25 hrs on NOC shift and did not appear to nap during day shift. ADL's: Pt. requires prompting. Pt. trimmed billingsley today. Group attendance: Yes Were meds taken: Yes Any med S/E: Denies. None observed. Mental Status Exam Appearance: Disheveled but clean, wearing casual attire. Eye contact: Good Behavior: Cooperative but socially withdrawn. Observed listening to headphones in community room. Speech: WNL Mood: Euthymic Affect: Flat Thought process: Linear with some poverty of thought. Thought Content: Circumstantial. Cognition: A&O X3 Insight: Poor Judgment: Poor Interventions PRN's used: None Therapeutic interventions: Introduced self and established rapport, maintained a safe and therapeutic environment, ensured contract for safety, provided clear and simple instructions, provided direction as needed and positive encouragement, and maintained Q 15min safety checks. Restraints/seclusion/emergency medication: N/A Justification of Continued Inpatient Treatment: Per SERGIO Chu, pt. continues to require a safe and supportive environment.
[2021-10-01 19:00] VITALS: BP 117/61
[2021-10-01] MEDS: clonazePAM 1mg tablet PO SCH (20:05)
[2021-10-01] MEDS: risperiDONE 0.5mg tablet PO SCH (20:05)
[2021-10-01] MEDS: atorvastatin 20mg tablet PO SCH (20:05)
--- NOTE | 2021-10-01 22:55 | NUR ---
Nursing Progress Note: Zeke Legal hold: 5250 Client on involuntary status for GD Report received from JENNIFER Rangel with use of SBAR. Why are they here: Pt. placed on 5150 for GD by [place] [facility] and brought to [facility] as direct admit. Pt. is unable to access basic life necessities such as food, long term, and clothing, and unable to take medications as prescribed. [facility] wants to pursue conservatorship. Assessment What has happened this shift: Patient continues to isolate to his room for most of the evening. Pt is polite when approached but does not engage much. Pt appears depressed and withdrawn but denies being suicidal. When asked about voices, he stated, pretty much. Pt spent time before bed listening to headphones in his room. All hs meds were taken without issue. S/I, H/I: Denies. A/VH: endorses voices Sleep: See sleep assessment ADL's: Independent Group attendance: Yes Were meds taken: Yes Any med S/E: None noted or observed. Mental Status Exam Appearance: Older male disheveled wearing green scrubs Eye contact: Good Behavior: Cooperative Speech: Soft Mood: I feel okay today Affect: Flat Thought process: Linear Thought Content: Discharge date Cognition: A/O x4. Insight: Poor. Judgment: Poor. Interventions PRN's used: None Therapeutic interventions: Introduced self and established rapport, maintained a safe and therapeutic environment, ensured contract for safety, provided clear and simple instructions, provided direction as needed and positive encouragement, and maintained Q 15min safety checks, encouraged independence performance of ADLs. Restraints/seclusion/emergency medication: N/A Justification of Continued Inpatient Treatment: Per SERGIO Spencer, pt. continues to require a safe and supportive environment.
[2021-10-02 07:05] VITALS: BP 107/66
[2021-10-02] MEDS: pioglitazone 15mg tablet PO SCH (07:41)
[2021-10-02] MEDS: linagliptin 5mg tablet PO SCH (07:41)
[2021-10-02] MEDS: metFORMIN 500mg tablet PO SCH ×2 (07:41→17:10)
[2021-10-02] MEDS: lisinopril 5mg tablet PO SCH (07:41)
[2021-10-02] MEDS: polyethylene glycol 3350 17gm powd pack PO SCH (07:42)
--- NOTE | 2021-10-02 17:37 | NUR ---
Nursing Progress Note: Legal hold: 5250 Client on involuntary status for GD Report received from nurse with use of SBAR: Asuncion Shirley, RN Why are they here: Pt. placed on 5150 for GD by [facility] and brought to [facility] as direct admit. Pt. is unable to access basic life necessities such as food, fdc, and clothing, and unable to take medications as prescribed. [facility] wants to pursue conservatorship. Assessment What has happened this shift: ESSENTIALS: -Pt. is a daily accu check. RN received pt. asleep in bed at start of shift. Pt. awoke for breakfast, and blood sugar taken and was 151. Pt. took all medications and ate all meals in the community room and took a nap. 1:1 done in community room, pt. gives minimal information, stating, Im fine. Pt. denies all psych symptoms. Pt. observed listening to headphones in the community room and falls asleep at times. Pt. napped in the afternoon before dinner. S/I, H/I: Denies A/VH: Denies Sleep: Pt. slept 5.5 hrs on NOC shift and napped approx. 3 hrs on day shift. ADL's: Independent with prompting. Group attendance: NA Were meds taken: Yes Any med S/E: Denies. None observed. Mental Status Exam Appearance: Disheveled but clean, wearing casual attire. Eye contact: Good Behavior: Cooperative but socially withdrawn. Observed listening to headphones in community room, isolating to his room and napping. Speech: WNL Mood: Euthymic Affect: Flat Thought process: Linear with some poverty of thought. Thought Content: Circumstantial. Cognition: A&O X3 Insight: Poor Judgment: Poor Interventions PRN's used: None Therapeutic interventions: Introduced self and established rapport, maintained a safe and therapeutic environment, ensured contract for safety, provided clear and simple instructions, provided direction as needed and positive encouragement, and maintained Q 15min safety checks. Restraints/seclusion/emergency medication: N/A Justification of Continued Inpatient Treatment: Per SERGIO Chu, pt. continues to require a safe and supportive environment.
[2021-10-02 19:00] VITALS: BP 123/65
[2021-10-02] MEDS: risperiDONE 0.5mg tablet PO SCH (20:10)
[2021-10-02] MEDS: atorvastatin 20mg tablet PO SCH (20:10)
[2021-10-02] MEDS: clonazePAM 1mg tablet PO SCH (20:10)
--- NOTE | 2021-10-03 00:35 | NUR ---
Nursing Progress Note: Zeke Legal hold: 5250 Client on involuntary status for GD Report received from JENNIFER Rangel with use of SBAR. Why are they here: Pt. placed on 5150 for GD by [place] [facility]ia and brought to [facility] as direct admit. Pt. is unable to access basic life necessities such as food, custodial, and clothing, and unable to take medications as prescribed. [facility] wants to pursue conservatorship. Assessment What has happened this shift: Patient appeared to be in a pleasant mood this evening. Pt was joking with staff during 1:1. Pt denies being depressed, but states that he is bored and feels tired a lot. Pt denies hearing voices or being suicidal. Hs meds taken without issue. S/I, H/I: Denies. A/VH: denies Sleep: See sleep assessment ADL's: Independent Group attendance: Yes Were meds taken: Yes Any med S/E: None noted or observed. Mental Status Exam Appearance: Older male disheveled wearing green scrubs Eye contact: Good Behavior: Cooperative Speech: Soft Mood: happy Affect: Flat Thought process: Linear Thought Content: Discharge date Cognition: A/O x4. Insight: Poor. Judgment: Poor. Interventions PRN's used: None Therapeutic interventions: Introduced self and established rapport, maintained a safe and therapeutic environment, ensured contract for safety, provided clear and simple instructions, provided direction as needed and positive encouragement, and maintained Q 15min safety checks, encouraged independence performance of ADLs. Restraints/seclusion/emergency medication: N/A Justification of Continued Inpatient Treatment: Per SERGIO Spencer, pt. continues to require a safe and supportive environment.
[2021-10-03 07:08] VITALS: BP 121/55
[2021-10-03] MEDS: lisinopril 5mg tablet PO SCH (07:28)
[2021-10-03] MEDS: linagliptin 5mg tablet PO SCH (07:28)
[2021-10-03] MEDS: pioglitazone 15mg tablet PO SCH (07:28)
[2021-10-03] MEDS: polyethylene glycol 3350 17gm powd pack PO SCH (07:28)
[2021-10-03] MEDS: metFORMIN 500mg tablet PO SCH ×2 (07:28→17:49)
--- NOTE | 2021-10-03 16:57 | NUR ---
Nursing Progress Note: Legal hold: 5250 Client on involuntary status for GD Report received from nurse with use of SBAR: Asuncion Shirley, RN Why are they here: Pt. placed on 5150 for GD [facility] and brought to [facility] as direct admit. Pt. is unable to access basic life necessities such as food, retirement, and clothing, and unable to take medications as prescribed. [facility] wants to pursue conservatorship. Assessment What has happened this shift: ESSENTIALS: -Pt. is a daily accu check. RN received pt. asleep in bed at start of shift. Pt. awoke for breakfast, and blood sugar taken and was 167. Pt. took all medications and ate all meals in the community room. Pt. napped after breakfast. 1:1 done at bedside, pt. gives minimal information, reporting he feels, a little depressed. Pt. unable to identify the source of his feelings, stating, I just feel a bit down. Pt. observed listening to headphones and sitting in his chair in his room. Pt. napped in the afternoon. S/I, H/I: Denies A/VH: Denies Sleep: Pt. slept 6 hrs on NOC shift and napped approx. 2 hrs on day shift. ADL's: Independent with prompting. Group attendance: No Were meds taken: Yes Any med S/E: Denies. None observed. Mental Status Exam Appearance: Disheveled but clean, wearing casual attire. Eye contact: Good Behavior: Cooperative but socially withdrawn. Observed listening to headphones, isolating to his room and napping. Speech: WNL Mood: Euthymic Affect: Flat Thought process: Linear with some poverty of thought. Thought Content: Circumstantial. Cognition: A&O X3 Insight: Poor Judgment: Poor Interventions PRN's used: None Therapeutic interventions: Introduced self and established rapport, maintained a safe and therapeutic environment, ensured contract for safety, provided clear and simple instructions, provided direction as needed and positive encouragement, and maintained Q 15min safety checks. Restraints/seclusion/emergency medication: N/A Justification of Continued Inpatient Treatment: Per SERGIO Chu, pt. continues to require a safe and supportive environment.
[2021-10-03 19:00] VITALS: BP 120/67
[2021-10-03] MEDS: clonazePAM 1mg tablet PO SCH (20:44)
[2021-10-03] MEDS: risperiDONE 0.5mg tablet PO SCH (20:44)
[2021-10-03] MEDS: atorvastatin 20mg tablet PO SCH (20:44)
--- NOTE | 2021-10-04 00:50 | NUR ---
Nursing Progress Note: Zeke Legal hold: 5250 Client on involuntary status for GD Report received from nurse with use of SBAR: JENNIFER Rangel Why are they here: [facility] to [facility] as direct admit. Pt. is unable to access basic life necessities such as food, fpc, and clothing, and unable to take medications as prescribed. [facility] wants to pursue conservatorship. Assessment Shift Summary: Patient has been resting in room since the start of the shift. Sleeping intermittently but easily rousable for 1:1 assessment. Patient pleasant but not effusive during interaction. Joked a little bit and reported feeling somewhat improved over previous days, and "hopeful". Patient was compliant with medications and had no complains that they could articulate with prompting aside from being tired. S/I, H/I: Denies A/VH: Denies Sleep: patient has been in bed since beginning of shift, sleeping intermittently ADL's: Independent with prompting. Group attendance: No Were meds taken: Yes Any med S/E: Denies and not observed Mental Status Exam Appearance: clean, slightly unkempt Eye contact: Good Behavior: Cooperative but initially withdrawn, became more sociable throughout 1:1 Speech: WNL Mood: outwardly positive once fully interacting Affect: slightly flat, reciprocates positive emotion throughout dialogue Thought process: Linear, some poverty of thought Thought Content: Circumstantial. Cognition: A&O X3 Insight: Poor Judgment: Poor Interventions PRN's used: None Therapeutic interventions: Established rapport after introduction. Used therapeutic communication throughout assessment and interaction. Positive encouragement used regarding communicating needs and feelings, q15 minute checks, and encouraged compliance with medication regimen. Restraints/seclusion/emergency medication: N/A Justification of Continued Inpatient Treatment: pt. continues to require a safe and supportive environment.
[2021-10-04] MEDS: linagliptin 5mg tablet PO SCH (07:52)
[2021-10-04] MEDS: polyethylene glycol 3350 17gm powd pack PO SCH (07:52)
[2021-10-04] MEDS: lisinopril 5mg tablet PO SCH (07:52)
[2021-10-04] MEDS: metFORMIN 500mg tablet PO SCH ×2 (07:52→16:58)
[2021-10-04] MEDS: pioglitazone 15mg tablet PO SCH (07:53)
[2021-10-04 08:25] VITALS: BP 144/72
--- NOTE | 2021-10-04 14:25 | NUR ---
Nursing Progress Note: Legal hold: 5250 Client on involuntary status for GD Report received from nurse with use of SBAR: Asuncion Shirley RN Why are they here: Pt. placed on 5150 for GD by [place] [facility] and brought to [facility] as direct admit. Pt. is unable to access basic life necessities such as food, long term, and clothing, and unable to take medications as prescribed. [facility] wants to pursue conservatorship. Assessment What has happened this shift: RN received pt. asleep in bed at start of shift. Pt. awoke for breakfast, and blood sugar taken and was 137. Pt. took all medications and ate all meals in the community room. Pt. napped after breakfast. 1:1 done at bedside, pt. gives minimal information, reporting he feels, oh better today, I got a early cup of coffee'. Pt. observed listening to headphones and sitting in his chair in his room. Pt. napped in the afternoon. this headline writer encouraged patient to do his ADL's, patient stated 'I did that the other day". S/I, H/I: Denies A/VH: Denies Sleep: Pt. rested in hi bed off and on today and was easily aroused when approached. ADL's: Independent with prompting. Group attendance: No Were meds taken: Yes Any med S/E: Denies. None observed. Mental Status Exam Appearance: Disheveled but clean, wearing casual attire. Eye contact: Good Behavior: Cooperative but socially withdrawn. Observed listening to headphones, isolating to his room and napping. Speech: WNL Mood: "my mood is ok today" Affect: Flat Thought process: Linear with some poverty of thought. Thought Content: Circumstantial. Cognition: A&O X3 Insight: Poor Judgment: Poor Interventions PRN's used: None Therapeutic interventions: Introduced self and established rapport, maintained a safe and therapeutic environment, ensured contract for safety, provided clear and simple instructions, provided direction as needed and positive encouragement, and maintained Q 15min safety checks. Restraints/seclusion/emergency medication: N/A Justification of Continued Inpatient Treatment: Today patient is unable to come up with a discharge plan other than the situation that has landed him in acute care. Patient can not make a safe reliable or reasonable discharge plan with out third democrat assistance.
[2021-10-04 18:56] VITALS: BP 195/64
[2021-10-04] MEDS: atorvastatin 20mg tablet PO SCH (20:18)
[2021-10-04] MEDS: clonazePAM 1mg tablet PO SCH (20:18)
[2021-10-04] MEDS: risperiDONE 0.5mg tablet PO SCH (20:19)
--- NOTE | 2021-10-05 01:33 | NUR ---
Nursing Progress Note: Legal hold: 5250 Client on involuntary status for GD Report received from nurse with use of SBAR: Jon RN Why are they here: Pt. placed on 5150 for GD by [facility] and brought to [facility] as direct admit. Pt. is unable to access basic life necessities such as food, care home, and clothing, and unable to take medications as prescribed. [facility] wants to pursue conservatorship. Assessment What has happened this shift: Pt asleep in bed at start of shift. Awakened for snack went to group room. Took all meds. Minimal answers to questions. After eating snack pt put his head down on the table and fell asleep. Went back to bed and went to sleep. S/I, H/I: Denies A/VH: Denies Sleep: Asleep at this time ADL's: Independent with prompting. Group attendance: No Were meds taken: Yes Any med S/E: Denies. None observed. Mental Status Exam Appearance: Disheveled but clean, wearing casual attire. Eye contact: Good Behavior: Cooperative but socially withdrawn. Speech: WNL Mood: "my mood is ok today" Affect: Flat Thought process: Linear with some poverty of thought. Thought Content: Circumstantial. Cognition: A&O X3 Insight: Poor Judgment: Poor Interventions PRN's used: None Therapeutic interventions: Introduced self and established rapport, maintained a safe and therapeutic environment, ensured contract for safety, provided clear and simple instructions, provided direction as needed and positive encouragement, and maintained Q 15min safety checks. Restraints/seclusion/emergency medication: N/A Justification of Continued Inpatient Treatment: Today patient is unable to come up with a discharge plan other than the situation that has landed him in acute care. Patient can not make a safe reliable or reasonable discharge plan with out third alliance party assistance.
--- NOTE | 2021-10-05 07:27 | NUR ---
Reassessment: Pt currently on CCHO diet w/ mostly 100% intake of meals meeting needs. LBM 10/02 receiving routine Miralax. No nutrition intervention implemented at this time, will continue to monitor. Recs: 1. Continue CCHO diet as tolerated 2. Bowel care per rx 3. Weekly wts Addendum: 10/05/21 at [address] Amended: Links added.
[2021-10-05 08:00] VITALS: BP 160/77
[2021-10-05] MEDS: pioglitazone 15mg tablet PO SCH (08:26)
[2021-10-05] MEDS: polyethylene glycol 3350 17gm powd pack PO SCH (08:26)
[2021-10-05] MEDS: linagliptin 5mg tablet PO SCH (08:26)
[2021-10-05] MEDS: lisinopril 5mg tablet PO SCH (08:27)
[2021-10-05] MEDS: metFORMIN 500mg tablet PO SCH ×2 (08:27→17:06)
--- NOTE | 2021-10-05 13:49 | NUR ---
Pt. attended group today. The topic today was identifying the triggers, signs and symptoms of an upcoming episode/event so that Patients can learn to apply coping skills before they get to a bad place with their symptoms (6-7 or more on a scale of 0-10). Each pt. scaled their mood and anxiety level today to practice scaling. Pt. engaged in the group minimally today. He was slumped over the table with his head held up with his arm. He declined sharing when asked but gave the group a big smile and had a pleasant demeanor. He was calm and compliant. He listened to everything that his Lead Operator and his peers said and seemed to enjoy being a part of the group. Brandi Patel LCSW
--- NOTE | 2021-10-05 15:58 | NUR ---
Nursing Progress Note: Legal hold: 5250 Client on involuntary status for GD Report received from nurse with use of SBAR: JENNIFER Brock Why are they here: Pt. placed on 5150 for GD by [place] [facility] and brought to [facility] as direct admit. Pt. is unable to access basic life necessities such as food, longterm, and clothing, and unable to take medications as prescribed. [facility] wants to pursue conservatorship. Assessment What has happened this shift: RN received pt. asleep in bed at start of shift. Pt. awoke for breakfast. Pt. took all medications and ate all meals in the community room. Pt. napped after breakfast. 1:1 done at bedside, pt. gives minimal information, reporting he feels, oh better today, I got a early cup of coffee'. Pt. observed listening to headphones and sitting in his chair in his room. Pt. napped in the afternoon. this documentation writer encouraged patient to do his ADL's. Patient has been the same for the past week. S/I, H/I: Denies A/VH: Denies Sleep: Pt. rested in hi bed off and on today and was easily aroused when approached. ADL's: Independent with prompting. Group attendance: No Were meds taken: Yes Any med S/E: Denies. None observed. Mental Status Exam Appearance: Disheveled but clean, wearing casual attire. Eye contact: Good Behavior: Cooperative but socially withdrawn. Observed listening to headphones, isolating to his room and napping. Speech: WNL Mood: "my mood is ok today" Affect: Flat Thought process: Linear with some poverty of thought. Thought Content: Circumstantial. Cognition: A&O X3 Insight: Poor Judgment: Poor Interventions PRN's used: None Therapeutic interventions: Introduced self and established rapport, maintained a safe and therapeutic environment, ensured contract for safety, provided clear and simple instructions, provided direction as needed and positive encouragement, and maintained Q 15min safety checks. Restraints/seclusion/emergency medication: N/A Justification of Continued Inpatient Treatment: Today patient is unable to come up with a discharge plan other than the situation that has landed him in acute care. Patient can not make a safe reliable or reasonable discharge plan with out third alliance party assistance.
[2021-10-05 19:25] VITALS: BP 130/65
[2021-10-05] MEDS: clonazePAM 1mg tablet PO SCH (20:38)
[2021-10-05] MEDS: risperiDONE 0.5mg tablet PO SCH (20:38)
[2021-10-05] MEDS: atorvastatin 20mg tablet PO SCH (20:39)
--- NOTE | 2021-10-05 23:59 | NUR ---
Nursing Progress Note: Legal hold: 5250 Client on involuntary status for GD Report received from nurse with use of SBAR: Jon RN Why are they here: Pt. placed on 5150 for GD by [place] [facility] and brought to [facility] as direct admit. Pt. is unable to access basic life necessities such as food, long term, and clothing, and unable to take medications as prescribed. [facility]ators[facility]. Assessment What has happened this shift: Pt awake in bed at start of shift. Pt more animated conversation than last NOC shift, less fatigued Talked about groups he attended today. Said in groups he gets things to read that do help him. Told a story about being chased with a knife because he is torrez. Made a joke about how he used to run fast but now he might not because he has "a belly". Took all meds. S/I, H/I: Denies A/VH: Denies Sleep: Asleep at this time ADL's: Independent with prompting. Group attendance: No Were meds taken: Yes Any med S/E: Denies. None observed. Mental Status Exam Appearance: Disheveled but clean, wearing casual attire. Eye contact: Good Behavior: Cooperative but socially withdrawn. Speech: WNL Mood: "my mood is ok today" Affect: Flat Thought process: Linear with some poverty of thought. Thought Content: Circumstantial. Cognition: A&O X3 Insight: Poor Judgment: Poor Interventions PRN's used: None Therapeutic interventions: Introduced self and established rapport, maintained a safe and therapeutic environment, ensured contract for safety, provided clear and simple instructions, provided direction as needed and positive encouragement, and maintained Q 15min safety checks. Restraints/seclusion/emergency medication: N/A Justification of Continued Inpatient Treatment: Today patient is unable to come up with a discharge plan other than the situation that has landed him in acute care. Patient can not make a safe reliable or reasonable discharge plan with out third green party assistance.
[2021-10-06 07:30] VITALS: BP 128/62
[2021-10-06] MEDS: polyethylene glycol 3350 17gm powd pack PO SCH (08:29)
[2021-10-06] MEDS: metFORMIN 500mg tablet PO SCH ×2 (08:30→17:08)
[2021-10-06] MEDS: linagliptin 5mg tablet PO SCH (08:30)
[2021-10-06] MEDS: lisinopril 5mg tablet PO SCH (08:30)
[2021-10-06] MEDS: pioglitazone 15mg tablet PO SCH (08:30)
--- NOTE | 2021-10-06 15:42 | NUR ---
Nursing Progress Note: Legal hold: 5250 Client on involuntary status for GD Report received from nurse with use of SBAR: JENNIFER Ponce Why are they here: Pt. placed on 5150 for GD by [facility] and brought to [facility] as direct admit. Pt. is unable to access basic life necessities such as food, longterm, and clothing, and unable to take medications as prescribed. [facility] wants to pursue conservatorship. Assessment What has happened this shift: Pt. awoke for breakfast. Pt. took all medications and ate all meals in the community room. Pt. napped after breakfast. 1:1 done at bedside, pt. gives minimal information, reporting he feels, oh better today, I got a early cup of coffee'. Nathan had a great interview with provider, he talked a little about his brother that is mentall ill as well. Zeke appears to have some insight to his illness and has accepted the fact that he needs help with daily living. Pt. observed listening to headphones and sitting in his chair in his room. Pt. napped in the afternoon. this account underwriter encouraged patient to do his ADL's. Patient has been the same for the past week. S/I, H/I: Denies A/VH: Denies Sleep: Pt. rested in hi bed off and on today and was easily aroused when approached. ADL's: Independent with prompting. Group attendance: yes Were meds taken: Yes Any med S/E: Denies. None observed. Mental Status Exam Appearance: Disheveled but clean, wearing casual attire. Eye contact: Good Behavior: Cooperative but socially withdrawn. Observed listening to headphones, isolating to his room and napping. Speech: WNL Mood: "my mood is ok today" Affect: Flat Thought process: Linear with some poverty of thought. Thought Content: Circumstantial. Cognition: A&O X3 Insight: Poor Judgment: Poor Interventions PRN's used: None Therapeutic interventions: Introduced self and established rapport, maintained a safe and therapeutic environment, ensured contract for safety, provided clear and simple instructions, provided direction as needed and positive encouragement, and maintained Q 15min safety checks. Restraints/seclusion/emergency medication: N/A Justification of Continued Inpatient Treatment: Today patient is unable to come up with a discharge plan other than the situation that has landed him in acute care. Patient can not make a safe reliable or reasonable discharge plan with out third republican assistance.
--- NOTE | 2021-10-06 16:12 | NUR ---
Group Art Tx, Continued: Patient remained in the group room at the back table for the entire session. Patient was listening,and did attempt to make a contribution during the session, by answering simple questions. He was unable to maintain his focus however, lost interest in the group, the process and simply lay his head down on his table. When spoken to he would smile but remained blocked and without further comment. * Please refer to the group notes in [facility] for an overall report. Cristal Esparza MA, DIRECTOR OF ENGINEERING #[id number] [facility]-Art Therapist Addendum: 10/06/21 at 1647 by Cristal Esparza SS Amended: Links added.
--- NOTE | 2021-10-06 16:46 | NUR ---
Group Art Tx, Continued: Patient remained in the group room at the back table for the entire session. Patient was listening,and did attempt to make a contribution during the session, by answering simple questions. He was unable to maintain his focus however, lost interest in the group and process and simply lay his head down on his table. When spoken to he would smile but remained blocked and without further comment. * Please refer to the group notes in [facility] for an overall report. Cristal Esparza MA, CUSTOMER EXPERIENCE ASSOCIATE #[id number] [facility]-Art Therapist Addendum: 10/06/21 at 1647 by Cristal Esparza SS Amended: Links added.
[2021-10-06 19:42] VITALS: BP 110/66
[2021-10-06] MEDS: atorvastatin 20mg tablet PO SCH (20:16)
[2021-10-06] MEDS: clonazePAM 1mg tablet PO SCH (20:16)
[2021-10-06] MEDS: risperiDONE 0.5mg tablet PO SCH (20:16)
--- NOTE | 2021-10-07 00:23 | NUR ---
Nursing Progress Note: Legal hold: 5250 Client on involuntary status for GD Report received from nurse with use of SBAR: Claire RN Why are they here: Pt. placed on 5150 for GD by [facility] and brought to [facility] as direct admit. Pt. is unable to access basic life necessities such as food, group home, and clothing, and unable to take medications as prescribed. [facility] wants to pursue conservatorship. Assessment What has happened this shift: Pt sleeping at shift change. Pt did not attend snack time. Brought pt snack with meds. Pt took meds with no complaints.Pt stated, "went to [employer] and roger Kohort, I think we had pizza for dinner?" Pt was cooperative, had nurse look at his toenails as they are long and hurtful to him. Pt denies any A/V H, S/I, H/I. Pt went to bed shortly after snack and med administration. S/I, H/I: Denies A/VH: Denies Sleep: See sleep hours ADL's: Independent with prompting. Group attendance: No group in the evenings Were meds taken: Yes Any med S/E: Denies. None observed. Mental Status Exam Appearance: Disheveled but clean, wearing casual attire. Eye contact: Good Behavior: cooperative, sleepy Speech: clear Mood:good Affect: Flat Thought process: Linear with some poverty of thought. Thought Content: bed Cognition: A&O X3 Insight: Poor Judgment: Poor Interventions PRN's used: None Therapeutic interventions: ensured contract for safety, provided clear and simple instructions, provided direction as needed and positive encouragement, and maintained Q 15min safety checks. Restraints/seclusion/emergency medication: N/A Justification of Continued Inpatient Treatment: Today patient is unable to come up with a discharge plan other than the situation that has landed him in acute care. Patient can not make a safe reliable or reasonable discharge plan with out third libertarian assistance.
[2021-10-07 07:32] VITALS: BP 105/62
[2021-10-07] MEDS: lisinopril 5mg tablet PO SCH (07:43)
[2021-10-07] MEDS: metFORMIN 500mg tablet PO SCH ×2 (07:43→17:53)
[2021-10-07] MEDS: linagliptin 5mg tablet PO SCH (07:43)
[2021-10-07] MEDS: pioglitazone 15mg tablet PO SCH (07:43)
[2021-10-07] MEDS: polyethylene glycol 3350 17gm powd pack PO SCH (07:44)
--- NOTE | 2021-10-07 13:10 | NUR ---
Pt. attended group today. Today we talked about how to Self-Nurture ourselves followed up by writing down about places, people and situations that are nurturing. Pt. with assistance engaged in the group. When we did the written activity he needed help writing down what was asked. He then attempted to shared but needed assistance as he seemed to struggle reading his own writing. He was having trouble staying awake in the group. His demeanor was pleasant, calm and compliant. He was able to recognize the people, places and things that help him feel nurtured. He mentioned his family (nieces) as people he enjoys being around. He also mentioned that he enjoys walks and listening to music. HUSEYIN CabreraW
--- NOTE | 2021-10-07 15:34 | NUR ---
Nursing Progress Note: Legal hold: 5250 Client on involuntary status for GD Report received from nurse with use of SBAR: JENNIFER Ponce Why are they here: Pt. placed on 5150 for GD by [facility] and brought to [facility] as direct admit. Pt. is unable to access basic life necessities such as food, long-term, and clothing, and unable to take medications as prescribed. [facility] wants to pursue conservatorship. Assessment What has happened this shift: Pt was up before breakfast. Pt was cooperative with medications. Pt spends most of his day in the milieu participating in unit activities and groups as well as socializing with staff and peers. Pt denies SI/HI/AH/VH. Pt does not appear to be responding to internal stimuli. No unsafe behaviors noted. S/I, H/I: Pt denies A/VH: Pt denies Sleep: Pt slept 4 hours last night per noc shift report. ADL's: Independent Group attendance: Yes Were meds taken: Yes Any med S/E: None noted or reported Mental Status Exam Appearance: Clean older appearing male with curly villalta hair and facial stubble dressed in green unit scrubs, a villalta sweatshirt and villalta slippers. Eye contact: Good Behavior: Pleasant, cooperative, participates in groups and unit activities, listens to radio headphones. Speech: Clear, audible, normal rate & rhythm. Mood: Euthymic Affect: Euthymic Thought process: Linear Thought Content: Focused on participating in unit activities. Cognition: A&O X3 Insight: Poor Judgment: Poor Interventions PRN's used: None Therapeutic interventions: 1:1 assessment, maintained a safe and therapeutic environment, ensured contract for safety, provided clear and simple instructions, encouraged performance of personal hygiene, provided distraction, redirection,positive reinforcement, and maintained Q 15 minute safety checks. Restraints/seclusion/emergency medication: N/A Justification of Continued Inpatient Treatment: Patient is unable to formulate a discharge plan other than the situation that has landed him in acute care. Patient can not make a safe reliable or reasonable discharge plan with out third democrat assistance.
--- NOTE | 2021-10-07 16:27 | NUR ---
Group Tx, Continued: Patient was able to follow/participate all the activities presented having some insight into "My Strengths and Qualiies" Handout & Exercise. He remains quiet yet listens attentively. Patient has noted several times that he has a problem with hearing out of one ear due to a broken ear drum. He said it has been addressed in the past and that nothing more can be done for him." Will discuss further with treatment team. * Please refer to the group notes in [facility] for an overall report. Cristal Esparza MA, DEPARTURE CLERK #[id number] [facility]-Art Therapist Addendum: 10/07/21 at 1629 by Cristal Esparza SS Amended: Links added.
[2021-10-07 19:30] VITALS: BP 130/57
[2021-10-07] MEDS: atorvastatin 20mg tablet PO SCH (20:13)
[2021-10-07] MEDS: risperiDONE 0.5mg tablet PO SCH (20:13)
[2021-10-07] MEDS: clonazePAM 1mg tablet PO SCH (20:14)
--- NOTE | 2021-10-08 01:17 | NUR ---
Nursing Progress Note: Legal hold: 5250 Client on involuntary status for GD Report received from nurse with use of SBAR: JENNIFER Rangel Why are they here: Pt. placed on 5150 for GD by [facility] and [facility] as direct [facility]. Pt. is unable to access basic life necessities such as food, long term, and clothing, and unable to take medications as prescribed. [facility] wants to pursue conservatorship. Assessment What has happened this shift: Pt was in community room listening to headphones during shift change. Pt asleep for snack and did not want anything to eat when asked. Pt is cooperative with medications and has no complaints. Denies A/V H, S/I H/I. Pt stated that he went to group today and had fun. Pt went to bed shortly after med administration. S/I, H/I: Pt denies A/VH: Pt denies Sleep: See sleep hours ADL's: Independent Group attendance:No group in evenings Were meds taken: Yes Any med S/E: None noted or reported Mental Status Exam Appearance: Clean older appearing male with curly villalta hair and facial stubble dressed in green unit scrubs, a villalta sweatshirt and villalta slippers. Eye contact: Good Behavior:Cooperative, listened to headphones then went bed.headphones. Speech: Clear, audible, normal rate & rhythm. Mood: Euthymic Affect: Euthymic Thought process: Linear Thought Content:tired Cognition: A&O X3 Insight: Poor Judgment: Poor Interventions PRN's used: None Therapeutic interventions: 1:1 assessment, maintained a safe and therapeutic environment, ensured contract for safety, provided clear and simple instructions, encouraged performance of personal hygiene, provided distraction, redirection,positive reinforcement, and maintained Q 15 minute safety checks. Restraints/seclusion/emergency medication: N/A Justification of Continued Inpatient Treatment: Patient is unable to formulate a discharge plan other than the situation that has landed him in acute care. Patient can not make a safe reliable or reasonable discharge plan with out third alliance party assistance.
[2021-10-08 07:16] VITALS: BP 123/55
[2021-10-08] MEDS: metFORMIN 500mg tablet PO SCH ×2 (07:36→17:38)
[2021-10-08] MEDS: polyethylene glycol 3350 17gm powd pack PO SCH (07:36)
[2021-10-08] MEDS: linagliptin 5mg tablet PO SCH (07:36)
[2021-10-08] MEDS: pioglitazone 15mg tablet PO SCH (07:37)
[2021-10-08] MEDS: lisinopril 5mg tablet PO SCH (07:37)
--- NOTE | 2021-10-08 14:07 | NUR ---
Nursing Progress Note: Legal hold: 5250 Client on involuntary status for GD Report received from nurse with use of SBAR: JENNIFER Ponce Why are they here: Pt. placed on 5150 for GD by [facility] and brought to [facility] as direct admit. Pt. is unable to access basic life necessities such as food, mcfp, and clothing, and unable to take medications as prescribed. [facility] wants to pursue conservatorship. Assessment What has happened this shift: Pt was up for breakfast. Observed pt sitting at the table in the dining room holding his head with one hand. Asked pt if his head was hurting. Pt replied, "no, I always hold my head." Pt denied depression, SI, or AH. Pt is cooperative with medications and unit procedures. No unsafe behaviors noted. S/I, H/I: Pt denies A/VH: Pt denies Sleep: Pt slept 5.5 hours last night per noc shift report. ADL's: Independent Group attendance: Yes Were meds taken: Yes Any med S/E: None noted or reported Mental Status Exam Appearance: Clean older appearing male with villalta hair and facial stubble dressed in green unit scrubs, a villalta sweatshirt and villalta slippers. Eye contact: Good Behavior: Pleasant, cooperative, participates in groups and unit activities, listens to radio headphones. Speech: Clear, audible, normal rate & rhythm. Mood: Calm Affect: Blunted Thought process: Linear Thought Content: He always holds his head. Cognition: A&O X3 Insight: Poor Judgment: Poor Interventions PRN's used: None Therapeutic interventions: 1:1 assessment, maintained a safe and therapeutic environment, ensured contract for safety, provided clear and simple instructions, encouraged performance of personal hygiene, provided distraction, redirection,positive reinforcement, and maintained Q 15 minute safety checks. Restraints/seclusion/emergency medication: N/A Justification of Continued Inpatient Treatment: Patient is unable to formulate a discharge plan other than the situation that has landed him in acute care. Patient can not make a safe reliable or reasonable discharge plan with out third alliance party assistance.
[2021-10-08 19:40] VITALS: BP 108/54
[2021-10-08] MEDS: clonazePAM 1mg tablet PO SCH (20:22)
[2021-10-08] MEDS: risperiDONE 0.5mg tablet PO SCH (20:22)
[2021-10-08] MEDS: atorvastatin 20mg tablet PO SCH (20:22)
--- NOTE | 2021-10-09 00:36 | NUR ---
Nursing Progress Note: Legal hold: 5250 Client on involuntary status for GD Report received from nurse with use of SBAR: JENNIFER Stallworth Why are they here: Pt. placed on 5150 for GD by [facility] and brought to [facility] as direct admit. Pt. is unable to access basic life necessities such as food, fpc, and clothing, and unable to take medications as prescribed. [facility] wants to pursue conservatorship. Assessment What has happened this shift: Pt up in community room during shift change. Pt states that he attended group and had a good time, Pt was able to tell me what he had for dinner, "[place]". Pt denies A/V H, I/S I/H. Pt did not attend snack but asked for cookies at med [employer]. Pt sitting in room after med pass listening to heads phones and nodding to music. Pt went to bed shortly after. S/I, H/I: Pt denies A/VH: Pt denies Sleep: See sleep hours ADL's: Independent Group attendance: No group in evenings Were meds taken: Yes Any med S/E: None noted or reported Mental Status Exam Appearance: Clean older appearing male with villalta hair and facial stubble dressed in green unit scrubs, a villalta sweatshirt and villalta slippers. Eye contact: Good Behavior: Pleasant, cooperative, listens to radio headphones. Speech: Clear, audible, normal rate & rhythm. Mood: Calm Affect: Blunted Thought process: Linear Thought Content: He always holds his head. Cognition: A&O X3 Insight: Poor Judgment: Poor Interventions PRN's used: None Therapeutic interventions: 1:1 assessment, maintained a safe and therapeutic environment, ensured contract for safety, provided clear and simple instructions, encouraged performance of personal hygiene, provided distraction, redirection,positive reinforcement, and maintained Q 15 minute safety checks. Restraints/seclusion/emergency medication: N/A Justification of Continued Inpatient Treatment: Patient is unable to formulate a discharge plan other than the situation that has landed him in acute care. Patient can not make a safe reliable or reasonable discharge plan with out third libertarian assistance.
--- NOTE | 2021-10-09 00:51 | NUR ---
Nursing Progress Note: Legal hold: 5250 Client on involuntary status for GD Report received from nurse with use of SBAR: JENNIFER Stallworth Why are they here: Pt. placed on 5150 for GD by [facility] and brought to [facility] as direct admit. Pt. is unable to access basic life necessities such as food, halfway, and clothing, and unable to take medications as prescribed. [facility] wants to pursue conservatorship. Assessment What has happened this shift: Pt up in community room during shift change. Pt states that he attended group and had a good time, Pt was able to tell me what he had for dinner, "[place]". Pt denies A/V H, I/S I/H. Pt did not attend snack but asked for cookies at med [employer]. Pt sitting in room after med pass listening to heads phones and nodding to music. Pt went to bed shortly after. S/I, H/I: Pt denies A/VH: Pt denies Sleep: See sleep hours ADL's: Independent Group attendance: No group in evenings Were meds taken: Yes Any med S/E: None noted or reported Mental Status Exam Appearance: Clean older appearing male with villalta hair and facial stubble dressed in green unit scrubs, a villalta sweatshirt and villalta slippers. Eye contact: Good Behavior: Pleasant, cooperative, listens to radio headphones. Speech: Clear, audible, normal rate & rhythm. Mood: Calm Affect: Blunted Thought process: Linear Thought Content: He always holds his head. Cognition: A&O X3 Insight: Poor Judgment: Poor Interventions PRN's used: None Therapeutic interventions: 1:1 assessment, maintained a safe and therapeutic environment, ensured contract for safety, provided clear and simple instructions, encouraged performance of personal hygiene, provided distraction, redirection,positive reinforcement, and maintained Q 15 minute safety checks. Restraints/seclusion/emergency medication: N/A Justification of Continued Inpatient Treatment: Patient is unable to formulate a discharge plan other than the situation that has landed him in acute care. Patient can not make a safe reliable or reasonable discharge plan with out third constitution party assistance.
[2021-10-09] MEDS: polyethylene glycol 3350 17gm powd pack PO SCH (07:54)
[2021-10-09] MEDS: metFORMIN 500mg tablet PO SCH ×2 (07:55→17:32)
[2021-10-09] MEDS: linagliptin 5mg tablet PO SCH (07:55)
[2021-10-09] MEDS: pioglitazone 15mg tablet PO SCH (07:56)
[2021-10-09] MEDS: lisinopril 5mg tablet PO SCH (07:56)
[2021-10-09 08:12] VITALS: BP 132/66
--- NOTE | 2021-10-09 13:58 | NUR ---
Nursing Progress Note: Legal hold: 5250 Client on involuntary status for GD Report received from nurse with use of SBAR: Asuncion Shirley RN Why are they here: Pt. placed on 5150 for GD by [facility] and brought to [facility] as direct admit. Pt. is unable to access basic life necessities such as food, prison, and clothing, and unable to take medications as prescribed. [facility] wants to pursue conservatorship. Assessment What has happened this shift: Pt was up before breakfast watching TV and listening to radio headphones. Pt was cooperative with his medications. Pt denied depression, SI/HI/AH/VH. No unsafe behaviors noted. S/I, H/I: Pt denies A/VH: Pt denies Sleep: Pt slept 6.5 hours last night per noc shift report, takes short naps during the day. ADL's: Independent Group attendance: Yes Were meds taken: Yes Any med S/E: None noted or reported Mental Status Exam Appearance: Clean older appearing male with villalta hair and facial stubble dressed in green unit scrubs and and villalta slippers. Eye contact: Good Behavior: Pleasant, cooperative, listens to radio headphones, watches TV. Speech: Clear, audible, normal rate & rhythm, minimal. Mood: Calm Affect: Blunted Thought process: Linear Thought Content: His voices are gone, the medications are working. Cognition: A&O X3 Insight: Poor Judgment: Poor Interventions PRN's used: None Therapeutic interventions: 1:1 assessment, maintained a safe and therapeutic environment, ensured contract for safety, provided clear and simple instructions, encouraged performance of personal hygiene, provided distraction, redirection,positive reinforcement, and maintained Q 15 minute safety checks. Restraints/seclusion/emergency medication: N/A Justification of Continued Inpatient Treatment: Patient is unable to formulate a discharge plan other than the situation that has landed him in acute care. Patient can not make a safe reliable or reasonable discharge plan with out third constitution party assistance.
[2021-10-09 19:00] VITALS: BP 111/59
[2021-10-09] MEDS: atorvastatin 20mg tablet PO SCH (20:03)
[2021-10-09] MEDS: clonazePAM 1mg tablet PO SCH (20:03)
[2021-10-09] MEDS: risperiDONE 0.5mg tablet PO SCH (20:03)
--- NOTE | 2021-10-10 00:59 | NUR ---
Nursing Progress Note: Zeke Legal hold: 5250 Client on involuntary status for GD Report received from nurse with use of SBAR: JENNIFER Stallworth Why are they here: Pt. placed on 5150 for GD by [facility] and brought to [facility] as direct admit. Pt. is unable to access basic life necessities such as food, penitentiary, and clothing, and unable to take medications as prescribed. [facility] wants to pursue conservatorship. Assessment What has happened this shift: Pt up and listening to radio headphones in his room, denies any needs at this time. Pt was cooperative with his medications. Pt denied depression, SI/HI/AH/VH. No unsafe behaviors noted. S/I, H/I: Pt denies A/VH: Pt denies Sleep: ADL's: Independent Group attendance: Were meds taken: Yes Any med S/E: None noted or reported Mental Status Exam Appearance: Clean older appearing male with villalta hair and facial stubble dressed in green unit scrubs and and villalta slippers. Eye contact: Good Behavior: Pleasant, cooperative, listens to radio headphones Speech: Clear, audible, normal rate & rhythm, minimal. Mood: Calm Affect: Blunted Thought process: Linear Thought Content: meeting needs Cognition: A&O X3 Insight: Poor Judgment: Poor Interventions PRN's used: None Therapeutic interventions: 1:1 assessment, maintained a safe and therapeutic environment, ensured contract for safety, provided clear and simple instructions, encouraged performance of personal hygiene, provided distraction, redirection,positive reinforcement, and maintained Q 15 minute safety checks. Restraints/seclusion/emergency medication: N/A Justification of Continued Inpatient Treatment: Patient is unable to formulate a discharge plan other than the situation that has landed him in acute care. Patient can not make a safe reliable or reasonable discharge plan with out third democrat assistance.
[2021-10-10] MEDS: linagliptin 5mg tablet PO SCH (07:12)
[2021-10-10] MEDS: polyethylene glycol 3350 17gm powd pack PO SCH (07:12)
[2021-10-10] MEDS: pioglitazone 15mg tablet PO SCH (07:13)
[2021-10-10] MEDS: metFORMIN 500mg tablet PO SCH ×2 (07:13→17:37)
[2021-10-10] MEDS: lisinopril 5mg tablet PO SCH (08:04)
[2021-10-10 08:13] VITALS: BP 135/67
--- NOTE | 2021-10-10 16:36 | NUR ---
Nursing Progress Note: Legal hold: 5250 Client on involuntary status for GD Report received from MIKEL James with use of SBAR. Why are they here: Pt. placed on 5150 for GD by [facility] and brought to [facility] as direct admit. Pt. is unable to access basic life necessities such as food, chcf, and clothing, and unable to take medications as prescribed. [facility] wants to pursue conservatorship. Assessment What has happened this shift: Patient is awake in his room at the start of the shift sitting quietly wearing head phones. Eats breakfast in the community room and interacts appropriately with staff and peers. Isolates in his room for most of the day. Answers closed ended questions but does not engage in conversation. Cooperative with medications and 1:1 assessment. S/I, H/I: Denies A/VH: Denies Sleep: Takes short naps off and on ADL's: Independent Group attendance: NA Were meds taken: Yes Any med S/E: None observed or reported. Mental Status Exam Appearance: Clean older appearing male with villalta hair and facial stubble dressed in green unit scrubs and villalta slippers. Eye contact: Good Behavior: Pleasant, cooperative, listens to radio headphones, watches TV. Speech: Clear, normal rate/ volume, minimal. Mood: Good. Affect: Blunted Thought process: Linear Thought Content: Meeting needs Cognition: A&O X4 Insight: Fair Judgment: Fair Interventions PRN's used: None Therapeutic interventions: 1:1 assessment, maintained a safe and therapeutic environment, ensured contract for safety, provided clear and simple instructions, encouraged performance of personal hygiene, provided distraction, redirection, positive reinforcement, and maintained Q 15 minute safety checks. Restraints/seclusion/emergency medication: N/A Justification of Continued Inpatient Treatment: Patient is unable to formulate a discharge plan other than the situation that has landed him in acute care. Patient cannot make a safe reliable or reasonable discharge plan without third republican assistance.
[2021-10-10 19:00] VITALS: BP 94/43
[2021-10-10] MEDS: risperiDONE 0.5mg tablet PO SCH (21:16)
[2021-10-10] MEDS: clonazePAM 1mg tablet PO SCH (21:16)
[2021-10-10] MEDS: atorvastatin 20mg tablet PO SCH (21:16)
--- NOTE | 2021-10-10 22:25 | NUR ---
Nursing Progress Note: Legal hold: 5250 Client on involuntary status for GD Report received from JENNIFER Stallworth with use of SBAR. Why are they here: Pt. placed on 5150 for GD by [place] [facility] and brought to [facility] as direct admit. Pt. is unable to access basic life necessities such as food, alf, and clothing, and unable to take medications as prescribed. [facility] wants to pursue conservatorship. Assessment What has happened this shift: Patient isolates in his room following shift change. He sits in a chair at bedside. Patient listening to music on headphones. Patient pauses his music to interview with this pattern chart writer. Patient seems well oriented. He presents no plan for his future. He denies S/I, H/I, or any hallucinations. S/I, H/I: Denies. A/VH: Denies. Sleep: Will tally carlitos 0500 hours. 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 Were meds taken: Yes< medication compliant. Any med S/E: None observed or reported. Mental Status Exam Appearance: Elderly patient, wearing green scrubs, Listening to music. Eye contact: Direct. Behavior: Pleasant, cooperative, somewhat isolative. Speech: Clear, normal rate, rhythm, and tone. Mood: Patient states he is feeling good. Affect: Flat. Thought process: Linear. Thought Content: Meeting needs, no plans for future. Cognition: A&O X4. Insight: Fair. Judgment: Fair. Interventions PRN's used: None. Therapeutic interventions: 1:1 assessment, maintained a safe and therapeutic environment, ensured contract for safety, provided clear and simple instructions, encouraged performance of personal hygiene, provided distraction, redirection, positive reinforcement, and maintained Q 15 minute safety checks. Restraints/seclusion/emergency medication: N/A Justification of Continued Inpatient Treatment: Patient is unable to formulate a discharge plan other than the situation that has landed him in acute care. Patient cannot make a safe reliable or reasonable discharge plan without third constitution party assistance.
[2021-10-11 07:00] VITALS: BP 86/57
[2021-10-11] MEDS: linagliptin 5mg tablet PO SCH (07:41)
[2021-10-11] MEDS: metFORMIN 500mg tablet PO SCH ×2 (07:41→17:30)
[2021-10-11] MEDS: polyethylene glycol 3350 17gm powd pack PO SCH (07:42)
[2021-10-11] MEDS: pioglitazone 15mg tablet PO SCH (07:43)
[2021-10-11] MEDS: lisinopril 5mg tablet PO SCH (07:45)
--- NOTE | 2021-10-11 17:10 | NUR ---
Nursing Progress Note: Legal hold: 5250 Client on involuntary status for GD Report received from MIKEL James with use of SBAR. Why are they here: Pt. placed on 5150 for GD by [place] [facility] and brought to [facility] as direct admit. Pt. is unable to access basic life necessities such as food, intermediate, and clothing, and unable to take medications as prescribed. [facility] wants to pursue conservatorship. Assessment What has happened this shift: Received pt. sitting up in his chair wearing headphones listening to music. Patient takes medications without incident and has breakfast in the community room. Patient is cooperative with treatment. Patient takes long naps during the daytime. S/I, H/I: Denies A/VH: Denies Sleep: 4.75 hrs. NOC. Naps. ADL's: Independent Group attendance: NA Were meds taken: Yes Any med S/E: None observed or reported. Mental Status Exam Appearance: Clean older appearing male with villalta hair and facial stubble dressed in green unit scrubs and vlilalta slippers. Eye contact: Good Behavior: Pleasant, cooperative, listens to radio headphones, watches TV. Speech: Clear, normal rate/ volume, minimal. Mood: Ok. Affect: Blunted Thought process: Linear Thought Content: Meeting needs Cognition: A&O X4 Insight: Fair Judgment: Fair Interventions PRN's used: None Therapeutic interventions: 1:1 assessment, maintained a safe and therapeutic environment, ensured contract for safety, provided clear and simple instructions, encouraged performance of personal hygiene, provided distraction, redirection, positive reinforcement, and maintained Q 15 minute safety checks. Restraints/seclusion/emergency medication: N/A Justification of Continued Inpatient Treatment: Patient is unable to formulate a discharge plan other than the situation that has landed him in acute care. Patient cannot make a safe reliable or reasonable discharge plan without third libertarian assistance.
[2021-10-11 19:36] VITALS: BP 124/63
[2021-10-11] MEDS: clonazePAM 1mg tablet PO SCH (20:18)
[2021-10-11] MEDS: risperiDONE 0.5mg tablet PO SCH (20:18)
[2021-10-11] MEDS: atorvastatin 20mg tablet PO SCH (20:18)
--- NOTE | 2021-10-12 00:18 | NUR ---
Nursing Progress Note: Zeke Legal hold: 5250 Client on involuntary status for GD Report received from Basim MORIN with use of SBAR. Why are they here: Pt. placed on 5150 for GD by [facility] and brought to [facility] as direct admit. Pt. is unable to access basic life necessities such as food, halfway, and clothing, and unable to take medications as prescribed. [facility] wants to pursue conservatorship. Assessment What has happened this shift: Received pt. sitting up in his chair wearing headphones listening to music. Patient takes medications without incident. Pt requested to use the phone to call his niece and needed help dialing her number. Pt had snacks and went back to room isolates. S/I, H/I: Denies A/VH: Denies Sleep: ADL's: Independent Group attendance: NA Were meds taken: Yes Any med S/E: None observed or reported. Mental Status Exam Appearance: Clean older appearing male with villalta hair and facial stubble dressed in green unit scrubs and villalta slippers. Eye contact: Good Behavior: Pleasant, cooperative, listens to radio headphones, watches TV. Speech: Clear, normal rate/ volume, minimal. Mood: Ok. Affect: Blunted Thought process: Linear Thought Content: Meeting needs Cognition: A&O X4 Insight: Fair Judgment: Fair Interventions PRN's used: None Therapeutic interventions: 1:1 assessment, maintained a safe and therapeutic environment, ensured contract for safety, provided clear and simple instructions, encouraged performance of personal hygiene, provided distraction, redirection, positive reinforcement, and maintained Q 15 minute safety checks. Restraints/seclusion/emergency medication: N/A Justification of Continued Inpatient Treatment: Patient is unable to formulate a discharge plan other than the situation that has landed him in acute care. Patient cannot make a safe reliable or reasonable discharge plan without third green party assistance.
--- NOTE | 2021-10-12 07:29 | NUR ---
Reassessment: Pt currently on CCHO diet w/ mostly 100% intake of meals meeting needs. LBM 10/10 receiving routine Miralax. No nutrition intervention implemented at this time, will continue to monitor. Recs: 1. Continue CCHO diet as tolerated 2. Bowel care per rx 3. Weekly wts Addendum: 10/12/21 at [address] Amended: Links added.
[2021-10-12] MEDS: metFORMIN 500mg tablet PO SCH ×2 (07:47→17:41)
[2021-10-12] MEDS: linagliptin 5mg tablet PO SCH (07:48)
[2021-10-12] MEDS: pioglitazone 15mg tablet PO SCH (07:48)
[2021-10-12] MEDS: polyethylene glycol 3350 17gm powd pack PO SCH (07:48)
[2021-10-12] MEDS: lisinopril 5mg tablet PO SCH (07:48)
[2021-10-12 08:30] VITALS: BP 145/78
--- NOTE | 2021-10-12 16:52 | NUR ---
Nursing Progress Note: Legal hold: 5250 Client on involuntary status for GD Report received from MIKEL Brock with use of SBAR. Why are they here: Pt. placed on 5150 for GD by [facility] and brought to [facility] as direct admit. Pt. is unable to access basic life necessities such as food, mcc, and clothing, and unable to take medications as prescribed. [facility] wants to pursue conservatorship. Assessment What has happened this shift: Received patient while he was sitting in chair in his room with headphones on and drinking coffee. Patient immediately smiled when he was greeted and informed him I would be his nurse today. Pleasant during each intervention. Alternates by sitting in a specific chair in the dining room or sitting in his room. Headphones on most of the day except when eating snacks/meals or participating in Group meetings. Patient is calm and easily interacts with others. Patient isolated in room this afternoon. S/I, H/I: Denies A/VH: Denies Sleep: Patient reports he slept well all night. ADL's: Independent Group attendance: Went to Group Meeting this morning Were meds taken: Yes, without hesitation Any med S/E: None observed or reported. Mental Status Exam Appearance: Clean older appearing male with villalta hair and facial stubble with blue sweatshirt, blue jeans and blue socks. Eye contact: Good Behavior: Calm, Pleasant, Smiles Speech: Clear, normal rate/ volume. Mood: Im doing fine. Affect: Bright, Cheerful Thought process: Linear Thought Content: Meeting needs Cognition: A&O X4 Insight: Fair Judgment: Fair Interventions PRN's used: None Therapeutic interventions: 1:1 assessment, maintained a safe and therapeutic environment, ensured contract for safety, provided clear and simple instructions, encouraged performance of personal hygiene, provided distraction, redirection, positive reinforcement, and maintained Q 15 minute safety checks. Restraints/seclusion/emergency medication: N/A Justification of Continued Inpatient Treatment: Patient is unable to formulate a discharge plan other than the situation that has landed him in acute care. Patient cannot make a safe reliable or reasonable discharge plan without third libertarian assistance.
[2021-10-12 19:25] VITALS: BP 110/71
[2021-10-12] MEDS: atorvastatin 20mg tablet PO SCH (20:21)
[2021-10-12] MEDS: clonazePAM 1mg tablet PO SCH (20:21)
[2021-10-12] MEDS: risperiDONE 0.5mg tablet PO SCH (20:21)
--- NOTE | 2021-10-13 01:57 | NUR ---
Nursing Progress Note: Zeke Legal hold: 5250 Client on involuntary status for GD Report received from Basim with use of SBAR. Why are they here: Pt. placed on 5150 for GD by [facility] and brought to [facility] as direct admit. Pt. is unable to access basic life necessities such as food, skilled nursing, and clothing, and unable to take medications as prescribed. [facility] wants to pursue conservatorship. Assessment What has happened this shift: Received patient in his room sitting in his chair with headphones on. Pt stated he is good and had no complaints. Pt cooperative with care. Pt up for snacks in the community room and watched a movie. Compliant with all HS medications. S/I, H/I: Denies A/VH: Denies Sleep: ADL's: Independent Group attendance: Were meds taken: Yes, without hesitation Any med S/E: None observed or reported. Mental Status Exam Appearance: Clean older appearing male with villalta hair and facial stubble with blue sweatshirt, blue jeans and blue socks. Eye contact: Good Behavior: Calm, Pleasant, Smiles Speech: Clear, normal rate/ volume. Mood: Im doing fine. Affect: Bright, Cheerful Thought process: Linear Thought Content: Meeting needs Cognition: A&O X4 Insight: Fair Judgment: Fair Interventions PRN's used: None Therapeutic interventions: 1:1 assessment, maintained a safe and therapeutic environment, ensured contract for safety, provided clear and simple instructions, encouraged performance of personal hygiene, provided distraction, redirection, positive reinforcement, and maintained Q 15 minute safety checks. Restraints/seclusion/emergency medication: N/A Justification of Continued Inpatient Treatment: Patient is unable to formulate a discharge plan other than the situation that has landed him in acute care. Patient cannot make a safe reliable or reasonable discharge plan without third libertarian assistance.
[2021-10-13] MEDS: metFORMIN 500mg tablet PO SCH ×2 (07:33→17:27)
[2021-10-13] MEDS: linagliptin 5mg tablet PO SCH (07:33)
[2021-10-13] MEDS: polyethylene glycol 3350 17gm powd pack PO SCH (07:33)
[2021-10-13] MEDS: pioglitazone 15mg tablet PO SCH (07:33)
[2021-10-13] MEDS: lisinopril 5mg tablet PO SCH (07:36)
[2021-10-13 08:10] VITALS: BP 125/59
[2021-10-13 08:30] VITALS: BP 125/59
--- NOTE | 2021-10-13 14:05 | NUR ---
Pt. attended group today. Todays group was about learning ways to catch our unhealthy thinking. We then discussed unhealthy thoughts and how we can change them into more positive forward moving thoughts. Pt. quietly engaged in the group. He listened intently and when it was time to do the writing activity he wrote down his situation that bothered him, his feelings, how he interpreted the event and then another perspective that he could have taken. He declined to share his situation with the group reporting that it was too personal. He did give this Loan Manager his paperwork to share. He had written about a scenario about a person who had a bad attitude toward him. He wrote it made him feel uncomfortable and indifferent. His alternative perspective was that he could have looked at it like he wasn't seeing what was happening right. At the end of the group he did share that he was grateful for these groups because he feels like he learns a lot in them. He was alert and oriented X 4. His thought process and thought content was WNL. His demeanor was calm and he was pleasant to work with. Brandi Patel LCSW
--- NOTE | 2021-10-13 16:31 | NUR ---
Nursing Progress Note: Legal hold: T-Con Client on involuntary status for GD Report received from Donald Ponce RN with use of SBAR. Why are they here: Pt. placed on 5150 for GD by Roxana Ligia and brought to [facility] as direct admit. Pt. is unable to access basic life necessities such as food, skilled nursing, and clothing, and unable to take medications as prescribed. [facility] wants to pursue conservatorship. Assessment What has happened this shift: Received patient sitting in Community Room with headphones on at this time. Patient shared that today is his sisters birthday, and tomorrow is his brothers birthday. SERGIO Burns in to see patient. Patient smiling and laughing during his visit with Grant. Patient attended Group Meeting this morning and afternoon. Wearing headphones all day and reports Im listening to my [employer]. Patient is pleasant and calm throughout the day. S/I, H/I: Denies A/VH: Denies Sleep: Taking nap in bed at 1330 ADL's: Independent Group attendance: Attended Group this morning and afternoon. Were meds taken: Yes, without hesitation Any med S/E: None observed or reported. Mental Status Exam Appearance: Showered, Clean older appearing male with villalta hair and facial stubble wearing blue jeans, green top and bottoms with slippers on and a black sweatshirt. Eye contact: Good Behavior: Calm, Pleasant, Smiles Speech: Clear, normal rate/ volume. Mood: Im doing fine. Affect: Bright, Cheerful Thought process: Linear Thought Content: Meeting needs Cognition: A&O X4 Insight: Fair Judgment: Fair Interventions PRN's used: None Therapeutic interventions: 1:1 assessment, maintained a safe and therapeutic environment, ensured contract for safety, provided clear and simple instructions, encouraged performance of personal hygiene, provided distraction, redirection, positive reinforcement, and maintained Q 15 minute safety checks. Restraints/seclusion/emergency medication: N/A Justification of Continued Inpatient Treatment: Patient is unable to formulate a discharge plan other than the situation that has landed him in acute care. Patient cannot make a safe reliable or reasonable discharge plan without third alliance party assistance.
[2021-10-13] MEDS: atorvastatin 20mg tablet PO SCH (20:22)
[2021-10-13] MEDS: risperiDONE 0.5mg tablet PO SCH (20:22)
[2021-10-13] MEDS: clonazePAM 1mg tablet PO SCH (20:22)
[2021-10-13 20:55] VITALS: BP 124/66
--- NOTE | 2021-10-13 23:41 | NUR ---
Nursing Progress Note: Legal hold: T-Con Client on involuntary status for GD Report received from Donald Stallworth RN with use of SBAR. Why are they here: Pt. placed on 5150 for GD by [facility] and brought to [facility] as direct admit. Pt. is unable to access basic life necessities such as food, nursing home, and clothing, and unable to take medications as prescribed. [facility] wants to pursue conservatorship. Assessment What has happened this shift: Received patient sitting in group Room with headphones on . He stay ther till snack time ate in the group room then went to his room .Meds were given and he was compliant and went to sleep. S/I, H/I: Denies A/VH: Denies Sleep: See sleep assessment ADL's: Independent Group attendance: Attended Group this morning and afternoon. Were meds taken: Yes, without hesitation Any med S/E: None observed or reported. Mental Status Exam Appearance: Showered, Clean older appearing male with villalta hair and facial stubble wearing blue jeans, green top and bottoms with slippers on and a black sweatshirt. Eye contact: Good Behavior: Calm, Pleasant, Smiles Speech: Clear, normal rate/ volume. Mood: Im doing fine. Affect: Bright, Cheerful Thought process: Linear Thought Content: Meeting needs Cognition: A&O X4 Insight: Fair Judgment: Fair Interventions PRN's used: None Therapeutic interventions: 1:1 assessment, maintained a safe and therapeutic environment, ensured contract for safety, provided clear and simple instructions, encouraged performance of personal hygiene, provided distraction, redirection, positive reinforcement, and maintained Q 15 minute safety checks. Restraints/seclusion/emergency medication: N/A Justification of Continued Inpatient Treatment: Patient is unable to formulate a discharge plan other than the situation that has landed him in acute care. Patient cannot make a safe reliable or reasonable discharge plan without third alliance party assistance.
[2021-10-14 07:48] VITALS: BP 124/73
[2021-10-14] MEDS: lisinopril 5mg tablet PO SCH (07:55)
[2021-10-14] MEDS: pioglitazone 15mg tablet PO SCH (07:55)
[2021-10-14] MEDS: metFORMIN 500mg tablet PO SCH ×2 (07:56→17:40)
[2021-10-14] MEDS: linagliptin 5mg tablet PO SCH (07:56)
--- NOTE | 2021-10-14 08:17 | NUR ---
Placement Presenting Issues: Pt's @ baseline care team recommending placement services to start. Interventions: Clinician sent initial placement packet to [email or web address] & [facility] to facilitate pt's access to placement services. Plan: [facility] in dcp/placement services. Val Christopher LCSW Addendum: 10/14/21 at 0830 by Val GOLDBERG Amended: Links added.
[2021-10-14] MEDS: polyethylene glycol 3350 17gm powd pack PO SCH (09:28)
--- NOTE | 2021-10-14 17:53 | NUR ---
Nursing Progress Note: Legal hold: T-Con Client on involuntary status for GD Report received from Donald Ponce RN with use of SBAR. Why are they here: Pt. placed on 5150 for GD by Orondo Ligia and brought to [facility] as direct admit. Pt. is unable to access basic life necessities such as food, halfway, and clothing, and unable to take medications as prescribed. [facility] wants to pursue conservatorship. Assessment What has happened this shift: RN received pt. asleep in bed at start of shift. Pt. awoke for breakfast and took all medications. 1:1 done at bedside. Pt. denies all psych symptoms but gives minimal information. Pt. observed listening to music in his room most of the day. S/I, H/I: Denies A/VH: Denies Sleep: Pt. slept 5 hrs on NOC shift and appeared to napped approx. 2 hrs on day shift. ADL's: Independent Group attendance: Yes Were meds taken: Yes Any med S/E: None observed or reported. Mental Status Exam Appearance: Clean but disheveled, wearing casual attire. Eye contact: Good Behavior: Cooperative, calm, pleasant. Socially withdrawn. Speech: Clear, normal rate/ volume. Mood: Euthymic Affect: Congruent with mood. Thought process: Linear. Thought Content: Circumstantial. Cognition: A&O X4 Insight: Fair Judgment: Fair Interventions PRN's used: None Therapeutic interventions: 1:1 assessment, maintained a safe and therapeutic environment, ensured contract for safety, provided clear and simple instructions, encouraged performance of personal hygiene, provided distraction, redirection, positive reinforcement, and maintained Q 15 minute safety checks. Restraints/seclusion/emergency medication: N/A Justification of Continued Inpatient Treatment: Patient is unable to formulate a discharge plan other than the situation that has landed him in acute care. Patient cannot make a safe reliable or reasonable discharge plan without third green party assistance.
[2021-10-14 20:00] VITALS: BP 137/64
[2021-10-14] MEDS: atorvastatin 20mg tablet PO SCH (20:39)
[2021-10-14] MEDS: risperiDONE 0.5mg tablet PO SCH (20:39)
[2021-10-14] MEDS: clonazePAM 1mg tablet PO SCH (21:18)
--- NOTE | 2021-10-15 02:38 | NUR ---
Nursing Progress Note: Legal hold: T-Con Client on involuntary status for GD Report received from Donald Rangel RN with use of SBAR. Why are they here: Pt. placed on 5150 for GD by [facility] and brought to [facility] as direct admit. Pt. is unable to access basic life necessities such as food, fdc, and clothing, and unable to take medications as prescribed. [facility] wants to pursue conservatorship. Assessment What has happened this shift: Patient was found sitting in community room at beginning of shift. patient continued to sit in community room listening to headphones until snack time. Patient participated in snack time and then went to bed. Patient continues to listen to headphones. Patient stats headphones help him to sleep. Patient took all night medications without a problem. S/I, H/I: Denies A/VH: Denies Sleep: See sleep assessment ADL's: Independent Group attendance:n/a Were meds taken: Yes, Any med S/E: None observed or reported. Mental Status Exam Appearance: Showered, Clean older appearing male with villalta hair and facial stubble wearing green unit scrubs and personal sweater. Eye contact: Good Behavior: Calm, Pleasant, Smiles Speech: Clear, normal rate/ volume. Mood: Im doing fine. Affect: Bright, Cheerful Thought process: Linear Thought Content: Meeting needs Cognition: A&O X4 Insight: Fair Judgment: Fair Interventions PRN's used: None Therapeutic interventions: 1:1 assessment, maintained a safe and therapeutic environment, ensured contract for safety, provided clear and simple instructions, encouraged performance of personal hygiene, provided distraction, redirection, positive reinforcement, and maintained Q 15 minute safety checks. Restraints/seclusion/emergency medication: N/A Justification of Continued Inpatient Treatment: Patient is unable to formulate a discharge plan other than the situation that has landed him in acute care. Patient cannot make a safe reliable or reasonable discharge plan without third green party assistance.
[2021-10-15 07:46] VITALS: BP 141/69
[2021-10-15] MEDS: lisinopril 5mg tablet PO SCH (07:55)
[2021-10-15] MEDS: metFORMIN 500mg tablet PO SCH ×2 (07:55→18:04)
[2021-10-15] MEDS: pioglitazone 15mg tablet PO SCH (07:55)
[2021-10-15] MEDS: linagliptin 5mg tablet PO SCH (07:55)
[2021-10-15] MEDS: polyethylene glycol 3350 17gm powd pack PO SCH (09:40)
--- NOTE | 2021-10-15 17:59 | NUR ---
Nursing Progress Note: Legal hold: T-Con Client on involuntary status for GD Report received from Donald Ponce RN with use of SBAR. Why are they here: Pt. placed on 5150 for GD by Roland Ligia and brought to [facility] as direct admit. Pt. is unable to access basic life necessities such as food, [place], and clothing, and unable to take medications as prescribed. [facility] wants to pursue conservatorship. Assessment What has happened this shift: RN received pt. asleep in bed at start of shift. Pt. awoke for breakfast and took all medications. 1:1 done at bedside. Pt. denies all psych symptoms but gives minimal information. Pt. is social with staff and seen laughing and smiling. Pt. withdraws to his room listening to music most of the day. Pt. observed making his bed. S/I, H/I: Denies A/VH: Denies Sleep: Pt. slept 7.25 hrs on NOC shift and appeared to napped approx. 1 hr on day shift. ADL's: Independent Group attendance: Yes Were meds taken: Yes Any med S/E: None observed or reported. Mental Status Exam Appearance: Clean but disheveled, unshaven, wearing casual attire. Eye contact: Good Behavior: Cooperative, calm, pleasant. Listening to headphones in his room. Socially withdrawn. Speech: WNL Mood: Euthymic Affect: Congruent with mood. Thought process: Linear. Thought Content: Circumstantial. Cognition: A&O X4 Insight: Fair Judgment: Fair Interventions PRN's used: None Therapeutic interventions: 1:1 assessment, maintained a safe and therapeutic environment, ensured contract for safety, provided clear and simple instructions, encouraged performance of personal hygiene, provided distraction, redirection, positive reinforcement, and maintained Q 15 minute safety checks. Restraints/seclusion/emergency medication: N/A Justification of Continued Inpatient Treatment: Patient is unable to formulate a discharge plan other than the situation that has landed him in acute care. Patient cannot make a safe reliable or reasonable discharge plan without third republican assistance.
[2021-10-15 19:00] VITALS: BP 112/52
[2021-10-15] MEDS: clonazePAM 1mg tablet PO SCH (20:15)
[2021-10-15] MEDS: risperiDONE 0.5mg tablet PO SCH (20:16)
[2021-10-15] MEDS: atorvastatin 20mg tablet PO SCH (20:16)
--- NOTE | 2021-10-16 02:19 | NUR ---
Nursing Progress Note: Legal hold: T-Con Client on involuntary status for GD Report received from Donald Rangel RN with use of SBAR. Why are they here: Pt. placed on 5150 for GD by [facility] and brought to [facility] as direct admit. Pt. is unable to access basic life necessities such as food, jail, and clothing, and unable to take medications as prescribed. [facility] wants to pursue conservatorship. Assessment What has happened this shift: Patient was found sitting in his bed listening to headphones at beginning of shift. Patient continued to isolate in room until snack time. Patient participated in snack time and took night medications before going back to bed. S/I, H/I: Denies A/VH: Denies Sleep: See sleep assessment ADL's: Independent Group attendance: Yes Were meds taken: Yes Any med S/E: None observed or reported. Mental Status Exam Appearance: Clean but disheveled, unshaven, wearing casual attire. Eye contact: Good Behavior: Cooperative, calm, pleasant. Listening to headphones in his room. Socially withdrawn. Speech: WNL Mood: Euthymic Affect: Congruent with mood. Thought process: Linear. Thought Content: Circumstantial. Cognition: A&O X4 Insight: Fair Judgment: Fair Interventions PRN's used: None Therapeutic interventions: 1:1 assessment, maintained a safe and therapeutic environment, ensured contract for safety, provided clear and simple instructions, encouraged performance of personal hygiene, provided distraction, redirection, positive reinforcement, and maintained Q 15 minute safety checks. Restraints/seclusion/emergency medication: N/A Justification of Continued Inpatient Treatment: Patient is unable to formulate a discharge plan other than the situation that has landed him in acute care. Patient cannot make a safe reliable or reasonable discharge plan without third republican assistance.
[2021-10-16 07:30] VITALS: BP 154/78
[2021-10-16] MEDS: lisinopril 5mg tablet PO SCH (07:49)
[2021-10-16] MEDS: linagliptin 5mg tablet PO SCH (07:49)
[2021-10-16] MEDS: metFORMIN 500mg tablet PO SCH ×2 (07:49→17:37)
[2021-10-16] MEDS: pioglitazone 15mg tablet PO SCH (07:50)
[2021-10-16] MEDS: polyethylene glycol 3350 17gm powd pack PO SCH (08:50)
--- NOTE | 2021-10-16 16:40 | NUR ---
Nursing Progress Note: Legal hold: T-Con Client on involuntary status for GD Report received from Donald Ponce RN with use of SBAR. Why are they here: Pt. placed on 5150 for GD by [place] [facility] and brought to [facility] as direct admit. Pt. is unable to access basic life necessities such as food, custodial, and clothing, and unable to take medications as prescribed. [facility] wants to pursue conservatorship. Assessment What has happened this shift: RN received pt. asleep in bed at start of shift. Pt. awoke for breakfast and took all medications. 1:1 done at bedside. Pt. denies all psych symptoms but gives minimal information. Pt. is social when approached. Pt. observed listening to headphones most of the day in his room. S/I, H/I: Denies A/VH: Denies Sleep: Pt. slept 4.75 hrs on NOC shift and appeared to napped approx. 2 hrs on day shift. ADL's: Independent Group attendance: Yes Were meds taken: Yes Any med S/E: None observed or reported. Mental Status Exam Appearance: Clean but disheveled, unshaven, wearing casual attire. Eye contact: Good Behavior: Cooperative, calm, pleasant. Listening to headphones in his room. Social when approached Speech: WNL Mood: Euthymic Affect: Congruent with mood. Thought process: Linear. Thought Content: Circumstantial. Cognition: A&O X4 Insight: Fair Judgment: Fair Interventions PRN's used: None Therapeutic interventions: 1:1 assessment, maintained a safe and therapeutic environment, ensured contract for safety, provided clear and simple instructions, encouraged performance of personal hygiene, provided distraction, redirection, positive reinforcement, and maintained Q 15 minute safety checks. Restraints/seclusion/emergency medication: N/A Justification of Continued Inpatient Treatment: Patient is unable to formulate a discharge plan other than the situation that has landed him in acute care. Patient cannot make a safe reliable or reasonable discharge plan without third libertarian assistance.
--- NOTE | 2021-10-16 17:25 | NUR ---
Nursing Progress Note: Legal hold: 0232 Client on involuntary status for GD Report received from nurse with use of SBAR: Asuncion Shirley RN Why are they here: Received pt from med-surg unit after being transferred there yesterday. Pt gone less than 24 hours. Pt is semi catatonic and needed two person assist to shower and be put back into bed. The only verbalization pt offered is to ask for forgiveness which is consistent with his fixed delusion that he has sinned and is not forgiven. Pt does not answer ANY questions and currently is lying in bed chanting about God and forgiveness. Pt place on 5150 for GD (grave disability) Assessment What has happened this shift: Received pt. awake in wheel chair at start of shift. Pt. is tearful and states he feels that God is mad at him. Pt. reports hearing voices. RN sat with pt. and pt. calmed down. Pt. ate all of his breakfast and drank 1 pitcher of water plus juices. Pt.s lopez catheter d/cd and pt. tolerated well. Pt. showered with 2 staff assist. After pt. showered pt. was incontinent of stool and urine and showered again with 2 staff assist. Pt.s saline lock was d/cd. Pt. ate minimally at lunch time. Pt. became more active in the afternoon, attempting to socialize minimally with staff. Pt. prompted for toileting and pt. had no further accidents in the day. Pt. watching TV in community room in the evening. S/I, H/I: Denies A/VH: +AH. Disparaging voices. Sleep: Sleep hours are 8.5, pt. napped approx. 1 hr. ADL's: Pt. required 2 person assist today to shower. Pt. is standby assist while walking. Group attendance: No Were meds taken: Yes Any med S/E: Pt. continues to present with fatigued, requiring much assistance to perform his ADLs. Mental Status Exam Appearance: Pt. is clean, wearing clean green scrubs. Disheveled facial hair. Eye contact: Poor, pt. will stare blankly, or intense at times Behavior: Cooperative, fatigued, unable to verbalize needs. Speech: Non-verbal Mood: Anxious and guarded Affect: Constricted Thought process: Poverty of thought with thought blocking Thought Content: +AH. Feels abandoned by God. Cognition: A&O X1 Insight: Poor Judgment: Poor Interventions PRN's used: None. Therapeutic interventions: Introduced self and attempted to establish rapport, maintained a safe and supportive environment, provided clear and simple instructions, provided assistance with ADLs, monitored labs and IV fluids, monitored Lopez catheter and provided catheter care, and maintained LOS when pt's IV fluids running and Q 15min safety checks at all other times. Restraints/seclusion/emergency medication: N/A Justification of Continued Inpatient Treatment: Pt. continues to require medication adjustments and a safe and supportive environment. Per Dr. Hodge, he continues to be gravely disabled.
--- NOTE | 2021-10-16 17:26 | NUR ---
IGNORE NOTE BELOW. CHARTED ON WRONG PT.
--- NOTE | 2021-10-16 17:27 | NUR ---
Nursing Progress Note: Legal hold: T-Con Client on involuntary status for GD Report received from Asuncion Shirley career development director with use of SBAR. Why are they here: Pt. placed on 5150 for GD by Iola Ligia and brought to [facility] as direct admit. Pt. is unable to access basic life necessities such as food, mcc, and clothing, and unable to take medications as prescribed. [facility] wants to pursue conservatorship. Assessment What has happened this shift: RN received pt. asleep in bed at start of shift. Pt. awoke for breakfast and took all medications. 1:1 done at bedside. Pt. denies all psych symptoms but gives minimal information. Pt. is social when approached. Pt. observed listening to headphones most of the day in his room. S/I, H/I: Denies A/VH: Denies Sleep: Pt. slept 4.75 hrs on NOC shift and appeared to napped approx. 2 hrs on day shift. ADL's: Independent Group attendance: Yes Were meds taken: Yes Any med S/E: None observed or reported. Mental Status Exam Appearance: Clean but disheveled, unshaven, wearing casual attire. Eye contact: Good Behavior: Cooperative, calm, pleasant. Listening to headphones in his room. Social when approached Speech: WNL Mood: Euthymic Affect: Congruent with mood. Thought process: Linear. Thought Content: Circumstantial. Cognition: A&O X4 Insight: Fair Judgment: Fair Interventions PRN's used: None Therapeutic interventions: 1:1 assessment, maintained a safe and therapeutic environment, ensured contract for safety, provided clear and simple instructions, encouraged performance of personal hygiene, provided distraction, redirection, positive reinforcement, and maintained Q 15 minute safety checks. Restraints/seclusion/emergency medication: N/A Justification of Continued Inpatient Treatment: Patient is unable to formulate a discharge plan other than the situation that has landed him in acute care. Patient cannot make a safe reliable or reasonable discharge plan without third constitution party assistance.
[2021-10-16 19:00] VITALS: BP 112/66
[2021-10-16] MEDS: atorvastatin 20mg tablet PO SCH (20:22)
[2021-10-16] MEDS: clonazePAM 1mg tablet PO SCH (20:22)
[2021-10-16] MEDS: risperiDONE 0.5mg tablet PO SCH (20:22)
--- NOTE | 2021-10-17 03:55 | NUR ---
Nursing Progress Note: Legal hold: 5250 Client on involuntary status for GD Report received from nurse with use of SBAR: JENNIFER Rangel Why are they here: Received pt from med-surg unit after being transferred there yesterday. Pt gone less than 24 hours. Pt is semi catatonic and needed two person assist to shower and be put back into bed. The only verbalization pt offered is to ask for forgiveness which is consistent with his fixed delusion that he has sinned and is not forgiven. Pt does not answer ANY questions and currently is lying in bed chanting about God and forgiveness. Pt place on 5150 for GD (grave disability) Assessment What has happened this shift: Patient was found sitting in community room listening to headphones at beginning of shift. Patient was observed later back in bed and had to be awaken in order to be given night medications. Patient got up to participate in snack time and went back to bed. Patient did not socialized with anyone or want to participate in night activities. S/I, H/I: Denies A/VH: Denies. Sleep:See sleep Assessment ADL's: Pt. required 2 person assist today to shower. Pt. is standby assist while walking. Group attendance: No Were meds taken: Yes Any med S/E: Pt. continues to present with fatigued, requiring much assistance to perform his ADLs. Mental Status Exam Appearance: Pt. is clean, wearing clean green scrubs. Disheveled facial hair. Eye contact: Poor, pt. will stare blankly, or intense at times Behavior: Cooperative, fatigued, unable to verbalize needs. Speech: Non-verbal Mood: Anxious and guarded Affect: Constricted Thought process: Poverty of thought with thought blocking Thought Content: UA Cognition: A&O X1 Insight: Poor Judgment: Poor Interventions PRN's used: None. Therapeutic interventions: Introduced self and attempted to establish rapport, maintained a safe and supportive environment, provided clear and simple instructions, provided assistance with ADLs, monitored labs and IV fluids, monitored Diggs catheter and provided catheter care, and maintained LOS when pt's IV fluids running and Q 15min safety checks at all other times. Restraints/seclusion/emergency medication: N/A Justification of Continued Inpatient Treatment: Pt. continues to require medication adjustments and a safe and supportive environment. Per Dr. Hodge, he continues to be gravely disabled.
[2021-10-17 07:46] VITALS: BP 138/65
[2021-10-17] MEDS: lisinopril 5mg tablet PO SCH (08:26)
[2021-10-17] MEDS: linagliptin 5mg tablet PO SCH (08:27)
[2021-10-17] MEDS: pioglitazone 15mg tablet PO SCH (08:27)
[2021-10-17] MEDS: metFORMIN 500mg tablet PO SCH ×2 (08:27→17:39)
[2021-10-17] MEDS: polyethylene glycol 3350 17gm powd pack PO SCH (08:30)
--- NOTE | 2021-10-17 15:48 | NUR ---
Nursing Progress Note: Legal hold: T-Con Client on involuntary status for GD Report received from MIKEL Malik with use of SBAR. Why are they here: Pt. placed on 5150 for GD by [facility] and brought to [facility] as direct admit. Pt. is unable to access basic life necessities such as food, fdc, and clothing, and unable to take medications as prescribed. [facility] wants to pursue conservatorship. Assessment What has happened this shift:Received pt sitting up in the chair in his room waiting for breakfast. Pt cooperative with morning assessment. Reports BM yesterday. He is compliant with taking his medications. Pt observed later watching TV listening to music. S/I, H/I: Denies A/VH: Denies Sleep: Napped in the afternoon ADL's: Independent Group attendance: Yes Were meds taken: Yes Any med S/E: None observed or reported. Mental Status Exam Appearance: Clean but disheveled, unshaven, wearing personal clothing Eye contact: Fair Behavior: Spends most of the day with headphones on sitting in the chair alone in his room Speech: Clear, audible Mood: Euthymic Affect: Congruent with mood. Thought process: Linear. Thought Content: Circumstantial. Cognition: A&O X4 Insight: Fair Judgment: Fair Interventions PRN's used: None Therapeutic interventions: Provided 1:1 assessment with therapeutic communication with active listening, medication administration/education/monitoring, encouraged to come to meals and attend group, and maintained Q 15 minute safety checks. Restraints/seclusion/emergency medication: N/A Justification of Continued Inpatient Treatment: Patient is unable to formulate a discharge plan other than the situation that has landed him in acute care. Patient cannot make a safe reliable or reasonable discharge plan without third republican assistance.
[2021-10-17 20:00] VITALS: BP 115/58
[2021-10-17] MEDS: risperiDONE 0.5mg tablet PO SCH (20:38)
[2021-10-17] MEDS: atorvastatin 20mg tablet PO SCH (20:39)
[2021-10-17] MEDS: clonazePAM 1mg tablet PO SCH (20:39)
--- NOTE | 2021-10-18 02:39 | NUR ---
Nursing Progress Note: Zeke Legal hold: T-Con Client on involuntary status for GD Report received from Jon MORIN with use of SBAR. Why are they here: Pt. placed on 5150 for GD by [facility] and brought to [facility] as direct admit. Pt. is unable to access basic life necessities such as food, long-term, and clothing, and unable to take medications as prescribed. [facility] wants to pursue conservatorship. Assessment What has happened this shift: Received pt sitting up in the chair in his room with headphones on listening to music. Pt took off headphones and stated he was doing alright. Pt cooperative with assessment. He is compliant with taking his medications. Pt refused snacks and went to lay in bed shortly after med pass. S/I, H/I: Denies A/VH: Denies Sleep: ADL's: Independent Group attendance: Yes Were meds taken: Yes Any med S/E: None observed or reported. Mental Status Exam Appearance: Clean but disheveled, unshaven, wearing personal clothing Eye contact: Fair Behavior: Spends the evening with headphones, sitting in the chair alone in his room Speech: Clear, audible Mood: Euthymic Affect: Congruent with mood. Thought process: Linear. Thought Content: Circumstantial. Cognition: A&O X4 Insight: Fair Judgment: Fair Interventions PRN's used: None Therapeutic interventions: Provided 1:1 assessment with therapeutic communication with active listening, medication administration/education/monitoring, encouraged to come to meals and attend group, and maintained Q 15 minute safety checks. Restraints/seclusion/emergency medication: N/A Justification of Continued Inpatient Treatment: Patient is unable to formulate a discharge plan other than the situation that has landed him in acute care. Patient cannot make a safe reliable or reasonable discharge plan without third constitution party assistance.
[2021-10-18 08:00] VITALS: BP 130/51
[2021-10-18] MEDS: polyethylene glycol 3350 17gm powd pack PO SCH (08:00)
[2021-10-18] MEDS: pioglitazone 15mg tablet PO SCH (08:28)
[2021-10-18] MEDS: linagliptin 5mg tablet PO SCH (08:28)
[2021-10-18] MEDS: metFORMIN 500mg tablet PO SCH ×2 (08:28→17:35)
[2021-10-18] MEDS: lisinopril 5mg tablet PO SCH (08:29)
[2021-10-18] MEDS: NICOTINE POLACRILEX 2 MG LOZENGE BC PRN (12:07)
--- NOTE | 2021-10-18 17:08 | NUR ---
Nursing Progress Note: Legal hold: T-Con Client on involuntary status for GD Report received from Asuncion Shirley, contract associate manager with use of SBAR. Why are they here: Pt. placed on 5150 for GD by [facility] and brought to [facility] as direct admit. Pt. is unable to access basic life necessities such as food, longterm, and clothing, and unable to take medications as prescribed. [facility] wants to pursue conservatorship. Assessment What has happened this shift: RN received pt. asleep in bed at start of shift. Pt. awoke for breakfast and took all medications. 1:1 done at bedside. Pt. reports feeling good today, reports having a bad dream that disturbed him but doesnt want to talk about it. Pt. isolated to his room most of the day and listened to music and napped. Pt. had his billingsley trimmed today. Pt. encouraged to shower and stated, later. S/I, H/I: Denies A/VH: Denies Sleep: Pt. slept 4.25 hrs on NOC shift and appeared to napped approx. 2 hrs on day shift. ADL's: Independent, needs prompting. Group attendance: NA Were meds taken: Yes Any med S/E: None observed or reported. Mental Status Exam Appearance: Clean but disheveled, unshaven, wearing casual attire. Eye contact: Good Behavior: Cooperative, calm, pleasant. Listening to headphones in his room. Social when approached. Speech: WNL Mood: Euthymic Affect: Congruent with mood. Thought process: Linear. Thought Content: Circumstantial. Cognition: A&O X4 Insight: Fair Judgment: Fair Interventions PRN's used: None Therapeutic interventions: 1:1 assessment, maintained a safe and therapeutic environment, ensured contract for safety, provided clear and simple instructions, encouraged performance of personal hygiene, provided distraction, redirection, positive reinforcement, and maintained Q 15 minute safety checks. Restraints/seclusion/emergency medication: N/A Justification of Continued Inpatient Treatment: Patient is unable to formulate a discharge plan other than the situation that has landed him in acute care. Patient cannot make a safe reliable or reasonable discharge plan without third republican assistance.
[2021-10-18 19:00] VITALS: BP 121/62
[2021-10-18] MEDS: atorvastatin 20mg tablet PO SCH (20:41)
[2021-10-18] MEDS: risperiDONE 0.5mg tablet PO SCH (20:41)
[2021-10-18] MEDS: clonazePAM 1mg tablet PO SCH (20:42)
--- NOTE | 2021-10-19 00:52 | NUR ---
Nursing Progress Note: Zeke Legal hold: T-Con Client on involuntary status for GD Report received from Claire Bennett RN with use of SBAR. Why are they here: Pt. placed on 5150 for GD by [facility] and brought to [facility] as direct admit. Pt. is unable to access basic life necessities such as food, prison, and clothing, and unable to take medications as prescribed. [facility] wants to pursue conservatorship. Assessment What has happened this shift: RN received pt. sitting in a chair in his room with headphones on. Pt was calm and friendly and stated he was good. Pt stated that a diet Coke sounded really good and when he gets out of here he cant wait to have one. Pt isolated to his room all evening. Medication compliant. S/I, H/I: Denies A/VH: Denies Sleep: ADL's: Independent, needs prompting. Group attendance: NA Were meds taken: Yes Any med S/E: None observed or reported. Mental Status Exam Appearance: Clean but disheveled, unshaven, wearing casual attire. Eye contact: Good Behavior: Cooperative, calm, pleasant. Listening to headphones in his room. Social when approached. Speech: WNL Mood: Euthymic Affect: Congruent with mood. Thought process: Linear. Thought Content: Circumstantial. Cognition: A&O X4 Insight: Fair Judgment: Fair Interventions PRN's used: None Therapeutic interventions: 1:1 assessment, maintained a safe and therapeutic environment, ensured contract for safety, provided clear and simple instructions, encouraged performance of personal hygiene, provided distraction, redirection, positive reinforcement, and maintained Q 15 minute safety checks. Restraints/seclusion/emergency medication: N/A Justification of Continued Inpatient Treatment: Patient is unable to formulate a discharge plan other than the situation that has landed him in acute care. Patient cannot make a safe reliable or reasonable discharge plan without third alliance party assistance.
[2021-10-19] MEDS: pioglitazone 15mg tablet PO SCH (07:47)
[2021-10-19] MEDS: metFORMIN 500mg tablet PO SCH ×2 (07:47→17:23)
[2021-10-19] MEDS: linagliptin 5mg tablet PO SCH (07:49)
[2021-10-19] MEDS: lisinopril 5mg tablet PO SCH (07:49)
[2021-10-19] MEDS: polyethylene glycol 3350 17gm powd pack PO SCH (07:50)
[2021-10-19 08:00] VITALS: BP 138/59
--- NOTE | 2021-10-19 14:00 | NUR ---
Pt. attended group today. Today's group was about the different communications styles i.e passive, aggressive and assertive. We discussed what the characteristics of each style was. We then discussed where they saw themselves at now and where they would like to be with their communication style. Pt. sat quietly through the whole group listening intently. At the end of the group he spoke up and identified himself as a turtle in his communication style. This is the passive style of communication. He stated, "I hide in my shell". He was alert and oriented X 4. His thought content and thought process appeared WNL. His demeanor was pleasant and calm. Brandi Patel LCSW
--- NOTE | 2021-10-19 15:08 | NUR ---
Placement Sent packet to Flor Herrera, per [facility]'s PG's request. Val Christopher DIRECTOR OF ACCOUNTING Addendum: 10/19/21 at 1509 by Val Christopher SS Amended: Links added.
--- NOTE | 2021-10-19 17:00 | NUR ---
Nursing Progress Note: Legal hold: T-Con Client on involuntary status for GD Report received from Asuncion Shirley road engineer with use of SBAR. Why are they here: Pt. placed on 5150 for GD by [facility] and brought to [facility] as direct admit. Pt. is unable to access basic life necessities such as food, longterm, and clothing, and unable to take medications as prescribed. [facility] wants to pursue conservatorship. Assessment What has happened this shift: RN received pt. asleep in bed at start of shift. Pt. awoke for breakfast and took all medications. 1:1 done at bedside. Pt. reports feeling well, states, Im not yet in the Keiser mood. Pt. isolated to his room most of the day and listened to music and napped. Pt. showered today. S/I, H/I: Denies A/VH: Denies Sleep: Pt. slept 6 hrs on NOC shift and appeared to napped intermittently throughout the day. ADL's: Independent, needs prompting. Group attendance: No Were meds taken: Yes Any med S/E: Pt. denies. None observed. Mental Status Exam Appearance: Clean but disheveled, unshaven, wearing casual attire. Eye contact: Good Behavior: Cooperative, calm, pleasant. Listening to headphones in his room. Social when approached. Speech: WNL Mood: Euthymic Affect: Congruent with mood. Thought process: Linear. Thought Content: Circumstantial. Cognition: A&O X4 Insight: Fair Judgment: Fair Interventions PRN's used: None Therapeutic interventions: 1:1 assessment, maintained a safe and therapeutic environment, ensured contract for safety, provided clear and simple instructions, encouraged performance of personal hygiene, provided distraction, redirection, positive reinforcement, and maintained Q 15 minute safety checks. Restraints/seclusion/emergency medication: N/A Justification of Continued Inpatient Treatment: Patient is unable to formulate a discharge plan other than the situation that has landed him in acute care. Patient cannot make a safe reliable or reasonable discharge plan without third republican assistance.
[2021-10-19 20:00] VITALS: BP 107/56
[2021-10-19] MEDS: risperiDONE 0.5mg tablet PO SCH (20:40)
[2021-10-19] MEDS: atorvastatin 20mg tablet PO SCH (20:40)
[2021-10-19] MEDS: clonazePAM 1mg tablet PO SCH (20:40)
--- NOTE | 2021-10-20 04:50 | NUR ---
Nursing Progress Note: Legal hold: T-Con Client on involuntary status for GD Report received from Asuncion Shirley freelance designer with use of SBAR. Why are they here: Pt. placed on 5150 for GD by [facility] and brought to [facility] as direct admit. Pt. is unable to access basic life necessities such as food, longterm, and clothing, and unable to take medications as prescribed. [facility] wants to pursue conservatorship. Assessment What has happened this shift: Pt. lying in bed awake with covers over his head. 1:1 done at bedside, pt. is social and smiling. When asked about his needs, pt. states, cigarettes and a pepsi. Pt. gives minimal information, stating, Im good. Pt. ate HS snack and took medications and went to sleep. S/I, H/I: Denies A/VH: Denies Sleep: See sleep hours. ADL's: Independent, needs prompting. Group attendance: NA Were meds taken: Yes Any med S/E: Pt. denies. None observed. Mental Status Exam Appearance: Clean, trimmed mustache, wearing casual attire. Eye contact: WNL Behavior: Cooperative, calm, pleasant. Listening to headphones in his room. Social when approached. Speech: WNL Mood: Euthymic Affect: Congruent with mood. Thought process: Linear. Thought Content: Circumstantial. Cognition: A&O X4 Insight: Fair Judgment: Fair Interventions PRN's used: None Therapeutic interventions: 1:1 assessment, maintained a safe and therapeutic environment, ensured contract for safety, provided clear and simple instructions, encouraged performance of personal hygiene, provided distraction, redirection, positive reinforcement, and maintained Q 15 minute safety checks. Restraints/seclusion/emergency medication: N/A Justification of Continued Inpatient Treatment: Patient is unable to formulate a discharge plan other than the situation that has landed him in acute care. Patient cannot make a safe reliable or reasonable discharge plan without third libertarian assistance.
[2021-10-20] MEDS: polyethylene glycol 3350 17gm powd pack PO SCH (07:42)
[2021-10-20] MEDS: metFORMIN 500mg tablet PO SCH ×2 (07:43→17:48)
[2021-10-20] MEDS: lisinopril 5mg tablet PO SCH (07:43)
[2021-10-20] MEDS: pioglitazone 15mg tablet PO SCH (07:43)
[2021-10-20] MEDS: linagliptin 5mg tablet PO SCH (07:43)
[2021-10-20 08:00] VITALS: BP 152/70
--- NOTE | 2021-10-20 09:39 | NUR ---
Reassessment: Pt currently on CCHO diet w/ mostly 100% intake of meals meeting needs. LBM 10/19 receiving routine Miralax. No nutrition intervention implemented at this time, will continue to monitor. Recs: 1. Continue CCHO diet as tolerated 2. Bowel care per rx 3. Weekly wts Addendum: 10/20/21 at [address] Amended: Links added.
--- NOTE | 2021-10-20 15:10 | NUR ---
Pt. attended group today. We talked about Communication today focusing on how to utilize I messages. This Regulatory Affairs Strategy Specialist shared how to create an I message and then we practiced writing them on the board. Pt. sat quietly in the group. He did not share his thoughts today but just sat and listened to this Regulatory Affairs Strategy Specialist and his peers. Brandi Patel LCSW
--- NOTE | 2021-10-20 15:29 | NUR ---
Nursing Progress Note: Legal hold: TCON Client on involuntary status for GD Report received from nurse with use of SBAR: JENNIFER Ponce Why are they here: Pt. placed on 5150 for GD by [facility] and brought to [facility] as direct admit. Pt. is unable to access basic life necessities such as food, mcc, and clothing, and unable to take medications as prescribed. [facility] wants to pursue conservatorship. Assessment What has happened this shift: Pt was up before breakfast watching TV and listening to radio headphones. Pt was cooperative with his medications. Pt denied depression, SI/HI/AH/VH. Pt attended group. Pt does not appear to be responding to internal stimuli. No unsafe behaviors noted. S/I, H/I: Pt denies A/VH: Pt denies Sleep: Pt slept 5 hours last night per noc shift report, takes short naps during the day. ADL's: Independent Group attendance: Yes Were meds taken: Yes Any med S/E: None noted or reported Mental Status Exam Appearance: Clean older appearing male with villalta hair and facial stubble dressed in green unit scrubs and and villalta slippers. Eye contact: Good Behavior: Pleasant, cooperative, listens to radio headphones, watches TV, present in the milieu though mostly isolative to self, did not observe pt socializing with peers today. Speech: Clear, audible, normal rate & rhythm, minimal. Mood: Calm Affect: Blunted Thought process: Linear Thought Content: He is good. Cognition: A&O X3 Insight: Poor Judgment: Poor Interventions PRN's used: None Therapeutic interventions: 1:1 assessment, maintained a safe and therapeutic environment, ensured contract for safety, provided clear and simple instructions, encouraged performance of personal hygiene, encouraged pt to attend groups, provided distraction, redirection,positive reinforcement, and maintained Q 15 minute safety checks. Restraints/seclusion/emergency medication: N/A Justification of Continued Inpatient Treatment: Pt is gravely disabled, he is unable to formulate a plan for food, clothing and mcc. He is now on a TCON and the plan is to conserve him.
--- NOTE | 2021-10-20 17:22 | NUR ---
Group Art Tx, Continued: Patient entered the group room late. He remained for the remainder of the session, but presented as tired, pleasant and lethargic. Please refer to the [facility] case notes for a complete overview of the session. Cristal Esparza MA Licensed Marriage, Family Therapist #[id number] [facility], Art Therapist Addendum: 10/20/21 at 1723 by Cristal GOLDBERG Amended: Links added.
[2021-10-20] MEDS: atorvastatin 20mg tablet PO SCH (20:04)
[2021-10-20] MEDS: clonazePAM 1mg tablet PO SCH (20:04)
[2021-10-20] MEDS: risperiDONE 0.5mg tablet PO SCH (20:05)
[2021-10-20 20:34] VITALS: BP 152/65
--- NOTE | 2021-10-20 23:10 | NUR ---
Nursing Progress Note: Legal hold: LPS Report received from MIKEL Ponce, with use of SBAR. Why they are here: Pt admitted to [facility] from ER overflow on a 5150. Pt was at [facility] and was naked trying to fight staff members, was paranoid, delusional and thinks everyone wants to hurt him. Pt is currently conserved. Assessment What has happened this shift: Pt was sitting in the group room with head phones on at change of shift. He stayed there till snack was over was med compliant and cooperative. S/I, H/I: Pt denies. A/VH: Pt denies. Sleep: See sleep assessment. ADL's: Independent. Group attendance: No Were meds taken: Yes Any med S/E: None noted or reported Mental Status Exam Appearance: Young,pale male with shaved dark hair dressed in green unit scrubs and nonskid socks. Eye contact: Good Behavior: Cooperative, needs prompts and encouragement to come to meals and to take meds. Speech: Clear, audible, minimal. Mood: Calm Affect: Flat. Thought process: Paranoid, easily distractible, repeats the same questions. Thought Content: Wondered if he looked okay. Cognition: A/O X 2 Insight: Impaired Judgment: Poor. Interventions PRN's used: None Therapeutic interventions: 1:1 assessment, therapeutic communication, prompted and encouraged patient to come to meals and to take meds, medication administration/education/monitoring, reality orientation, distraction, redirection, positive reinforcement, and Q15 minute safety checks. Restraints/seclusion/emergency medication: N/A Justification: Patient is gravely disabled. Patient is conserved and awaiting placement
[2021-10-21 07:14] VITALS: BP 111/62
[2021-10-21] MEDS: polyethylene glycol 3350 17gm powd pack PO SCH (07:32)
[2021-10-21] MEDS: linagliptin 5mg tablet PO SCH (07:33)
[2021-10-21] MEDS: lisinopril 5mg tablet PO SCH (07:33)
[2021-10-21] MEDS: pioglitazone 15mg tablet PO SCH (07:33)
[2021-10-21] MEDS: metFORMIN 500mg tablet PO SCH ×2 (07:33→17:35)
--- NOTE | 2021-10-21 14:40 | NUR ---
Nursing Progress Note: Legal hold: TCON Client on involuntary status for GD Report received from nurse with use of SBAR: Rosario RN Why are they here: Pt. placed on 5150 for GD by [facility] and brought to [facility] as direct admit. Pt. is unable to access basic life necessities such as food, prison, and clothing, and unable to take medications as prescribed. [facility] wants to pursue conservatorship. Assessment What has happened this shift: Pt reported that he was in a bad mood this morning but "he helped me cheer up." Clarified by "he" that he meant [place]. Pt states that he is tired of being here and wants to go somewhere else. Pt denied depression, SI/HI/AH and VH today. Pt reported that he did have VH yesterday. He states he saw a big man around a corner yesterday for a few seconds, a man that wasn't actually there. Pt was more isolative to self today. He was only out of room for meals and snacks. Pt listens to the radio headphones in his room. S/I, H/I: Pt denies A/VH: Pt denies Sleep: Pt slept 4.25 hours last night per noc shift report, takes short naps during the day. ADL's: Independent Group attendance: No Were meds taken: Yes Any med S/E: None noted or reported Mental Status Exam Appearance: Clean older appearing male with villalta hair and facial stubble dressed in green unit scrubs. Eye contact: Good Behavior: Pleasant, cooperative, listens to radio headphones, spent most of his time in his room today. Speech: Clear, audible, normal rate & rhythm, minimal. Mood: Mildly irritable Affect: Congruent Thought process: Linear Thought Content: He is tired of being here and wants to go somewhere else. Cognition: A&O X 4 Insight: Poor Judgment: Poor Interventions PRN's used: None Therapeutic interventions: 1:1 assessment, maintained a safe and therapeutic environment, ensured contract for safety, provided clear and simple instructions, encouraged performance of personal hygiene, encouraged pt to attend groups, provided distraction, redirection,positive reinforcement, and maintained Q 15 minute safety checks. Restraints/seclusion/emergency medication: N/A Justification of Continued Inpatient Treatment: Pt is gravely disabled, he is unable to formulate a plan for food, clothing and prison. He is now on a TCON and the plan is to conserve him.
[2021-10-21] MEDS ORDERED: tuberculin, purif. prot. deriv. 5 units/0.1ml ID ONE (14:50)
[2021-10-21 19:38] VITALS: BP 154/69
[2021-10-21] MEDS: risperiDONE 0.5mg tablet PO SCH (21:09)
[2021-10-21] MEDS: clonazePAM 1mg tablet PO SCH (21:09)
[2021-10-21] MEDS: atorvastatin 20mg tablet PO SCH (21:09)
--- NOTE | 2021-10-22 00:20 | NUR ---
Nursing Progress Note: Legal hold: TCON Client on involuntary status for GD Report received from nurse with use of SBAR: JENNIFER Stallworth Why are they here: Pt. placed on 5150 for GD by [facility] and brought to [facility] as direct admit. Pt. is unable to access basic life necessities such as food, longterm, and clothing, and unable to take medications as prescribed. [facility] wants to pursue conservatorship. Assessment What has happened this shift: Pt awake lying in bed in his room start of shift. Pt describes mood as "somber". Pt denies Auditory hallucinations but said he saw a "Big man who wasn't there" The man was not threatening or scary but the pt was aware the man was not really there and that was disturbing. Pt said he went to groups today. Asked if he gets anything from the groups he says he gets papers he puts in the folder. Asked what they talked about he just shrugged his shoulders. Pt is looking forward to discharge so he can smoke a cigarette; Pt up to group room for snack then back to bed. S/I, H/I: Pt denies A/VH: Pt denies except for one time seeing a big man Sleep: asleep at this time ADL's: Independent Group attendance: No Were meds taken: Yes Any med S/E: None noted or reported Mental Status Exam Appearance: Clean older appearing male with villalta hair and facial stubble dressed in green unit scrubs. Eye contact: Good Behavior: Pleasant, cooperative, listens to radio headphones, spent most of his time in his room today. Speech: Clear, audible, normal rate & rhythm, minimal. Mood: Mildly irritable Affect: Congruent Thought process: Linear Thought Content: He is tired of being here and wants to go somewhere else. Cognition: A&O X 4 Insight: Poor Judgment: Poor Interventions PRN's used: None Therapeutic interventions: 1:1 assessment, maintained a safe and therapeutic environment, ensured contract for safety, provided clear and simple instructions, encouraged performance of personal hygiene, encouraged pt to attend groups, provided distraction, redirection,positive reinforcement, and maintained Q 15 minute safety checks. Restraints/seclusion/emergency medication: N/A Justification of Continued Inpatient Treatment: Pt is gravely disabled, he is unable to formulate a plan for food, clothing and longterm. He is now on a TCON and the plan is to conserve him.
[2021-10-22] MEDS: linagliptin 5mg tablet PO SCH (07:54)
[2021-10-22] MEDS: metFORMIN 500mg tablet PO SCH ×2 (07:54→17:12)
[2021-10-22] MEDS: lisinopril 5mg tablet PO SCH (07:54)
[2021-10-22] MEDS: polyethylene glycol 3350 17gm powd pack PO SCH (07:54)
[2021-10-22] MEDS: pioglitazone 15mg tablet PO SCH (07:54)
[2021-10-22 08:00] VITALS: BP 138/60
--- NOTE | 2021-10-22 13:48 | NUR ---
Nursing Progress Note: Legal hold: TCON Client on involuntary status for GD Report received from nurse with use of SBAR: Rosario RN Why are they here: Pt. placed on 5150 for GD by [facility] and brought to [facility] as direct admit. Pt. is unable to access basic life necessities such as food, chcf, and clothing, and unable to take medications as prescribed. [facility] wants to pursue conservatorship. Assessment What has happened this shift: Pt comes out of his room before meals and snacks. Pt spent most of his time in his room today listening to radio headphones. Pt states he is "good" but he is tired of this place. Pt complained about an agitated male peer's statements and behaviors. Pt denied depression, SI/HI/AH/VH. S/I, H/I: Pt denies A/VH: Pt denies Sleep: Pt slept 5 hours last night per noc shift report, takes short naps during the day. ADL's: Independent Group attendance: No Were meds taken: Yes Any med S/E: None noted or reported Mental Status Exam Appearance: Clean older appearing male with villalta hair and facial stubble dressed in green unit scrubs, a villalta sweatshirt and slippers. Eye contact: Good Behavior: Pleasant, cooperative, listens to radio headphones, mostly isolative to self. Speech: Clear, audible, normal rate & rhythm, minimal. Mood: "Good" Affect: Blunted, mildly irritable Thought process: Linear Thought Content: He is tired of being here and wants to go somewhere else. Cognition: A&O X 4 Insight: Fair Judgment: Fair Interventions PRN's used: None Therapeutic interventions: 1:1 assessment, maintained a safe and therapeutic environment, ensured contract for safety, provided clear and simple instructions, encouraged performance of personal hygiene, encouraged pt to attend groups, provided distraction, redirection,positive reinforcement, and maintained Q 15 minute safety checks. Restraints/seclusion/emergency medication: N/A Justification of Continued Inpatient Treatment: Pt is gravely disabled, he is unable to formulate a plan for food, clothing and chcf. He is now on a TCON and the plan is to conserve him.
[2021-10-22 19:48] VITALS: BP 127/57
[2021-10-22] MEDS: clonazePAM 1mg tablet PO SCH (21:18)
[2021-10-22] MEDS: atorvastatin 20mg tablet PO SCH (21:18)
[2021-10-22] MEDS: risperiDONE 0.5mg tablet PO SCH (21:18)
[2021-10-22] MEDS: NICOTINE POLACRILEX 2 MG LOZENGE BC PRN (23:53)
--- NOTE | 2021-10-23 00:52 | NUR ---
Nursing Progress Note: Legal hold: TCON Client on involuntary status for GD Report received from nurse with use of SBAR: JENNIFER Stallworth Why are they here: Pt. placed on 5150 for GD by [facility] and brought to [facility] as direct admit. Pt. is unable to access basic life necessities such as food, mcc, and clothing, and unable to take medications as prescribed. [facility] wants to pursue conservatorship. Assessment What has happened this shift: Pt awake l his room listening to headphones at start of shift. Pt pleasant and cooperative this shift. Pt denies A/V. Pt up for snack returned to room. Pt is looking forward to discharge so he can smoke a cigarette. "The first thing I'm going to do when I elave this building is smoke a cigarette. Given a nicotine lozenge. S/I, H/I: Pt denies A/VH: Pt denies Sleep: Several naps today ADL's: Independent Group attendance: No Were meds taken: Yes Any med S/E: None noted or reported Mental Status Exam Appearance: Clean older appearing male with villalta hair and facial stubble dressed in green unit scrubs. Eye contact: Good Behavior: Pleasant, cooperative, listens to radio headphones, spent most of his time in his room today. Speech: Clear, audible, normal rate & rhythm, minimal. Mood: Mildly irritable Affect: Congruent Thought process: Linear Thought Content: He is tired of being here and wants to smoke Cognition: A&O X 4 Insight: Poor Judgment: Poor Interventions PRN's used: None Therapeutic interventions: 1:1 assessment, maintained a safe and therapeutic environment, ensured contract for safety, provided clear and simple instructions, encouraged performance of personal hygiene, encouraged pt to attend groups, provided distraction, redirection,positive reinforcement, and maintained Q 15 minute safety checks. Restraints/seclusion/emergency medication: N/A Justification of Continued Inpatient Treatment: Pt is gravely disabled, he is unable to formulate a plan for food, clothing and mcc. He is now on a TCON and the plan is to conserve him.
[2021-10-23 07:17] VITALS: BP 125/62
[2021-10-23] MEDS: polyethylene glycol 3350 17gm powd pack PO SCH (07:48)
[2021-10-23] MEDS: metFORMIN 500mg tablet PO SCH ×2 (07:49→18:04)
[2021-10-23] MEDS: lisinopril 5mg tablet PO SCH (07:49)
[2021-10-23] MEDS: linagliptin 5mg tablet PO SCH (07:49)
[2021-10-23] MEDS: pioglitazone 15mg tablet PO SCH (07:49)
--- NOTE | 2021-10-23 16:18 | NUR ---
Nursing Progress Note: Legal hold: T-Con Client on involuntary status for GD Report received from MIKEL Brock with use of SBAR. Why are they here: Pt. placed on 5150 for GD by [facility] and brought to [facility] as direct admit. Pt. is unable to access basic life necessities such as food, chcf, and clothing, and unable to take medications as prescribed. [facility] wants to pursue conservatorship. Assessment What has happened this shift: Received pt sitting up in the chair in his room waiting for breakfast. Pt cooperative with morning assessment. He is compliant with taking his medications. Pt observed later watching TV listening to music. Pt up for meals, but does not initiate interaction with others. Pt did go on afternoon patio walk. S/I, H/I: Denies A/VH: Denies Sleep: Napped in the afternoon ADL's: Independent Group attendance: Yes Were meds taken: Yes Any med S/E: None observed or reported. Mental Status Exam Appearance: Clean but disheveled, unshaven, wearing personal clothing Eye contact: Fair Behavior: Spends most of the day with headphones on sitting in the chair alone in his room Speech: Clear, audible Mood: Euthymic Affect: Congruent with mood. Thought process: Linear. Thought Content: Circumstantial. Cognition: A&O X4 Insight: Fair Judgment: Fair Interventions PRN's used: None Therapeutic interventions: Provided 1:1 assessment with therapeutic communication with active listening, medication administration/education/monitoring, encouraged to come to meals and attend group, and maintained Q 15 minute safety checks. Restraints/seclusion/emergency medication: N/A Justification of Continued Inpatient Treatment: Patient is unable to formulate a discharge plan other than the situation that has landed him in acute care. Patient cannot make a safe reliable or reasonable discharge plan without third constitution party assistance.
[2021-10-23 19:00] VITALS: BP 123/63
[2021-10-23] MEDS: risperiDONE 0.5mg tablet PO SCH (20:14)
[2021-10-23] MEDS: atorvastatin 20mg tablet PO SCH (20:14)
[2021-10-23] MEDS: clonazePAM 1mg tablet PO SCH (20:17)
--- NOTE | 2021-10-24 01:35 | NUR ---
Nursing Progress Note: Legal hold: T-Con Client on involuntary status for GD Report received from MIKEL Stallworth with use of SBAR. Why are they here: Pt. placed on 5150 for GD by [facility] and brought to [facility] as direct admit. Pt. is unable to access basic life necessities such as food, senior care, and clothing, and unable to take medications as prescribed. [facility] wants to pursue conservatorship. Assessment What has happened this shift: Patient was found sitting in chair in his room listening to headphones at beginning of shift. Patient stayed self isolating in room until snack time. Patient participated in snack but spent whole time in corner by himself. Patient took night medications and went back to his room. Patient stats his clock is off he doesn't know if its night or day and had to asked nurse multiple times. Patent went back and forth between his chair and bed for the rest of the shift. S/I, H/I: Denies A/VH: Denies Sleep:See sleep assessment ADL's: Independent Group attendance: Yes Were meds taken: Yes Any med S/E: None observed or reported. Mental Status Exam Appearance: Clean but disheveled, unshaven, wearing personal clothing Eye contact: Fair Behavior: Spends most of the day with headphones on sitting in the chair alone in his room Speech: Clear, audible Mood: Euthymic Affect: Congruent with mood. Thought process: Linear. Thought Content: Circumstantial. Cognition: A&O X4 Insight: Fair Judgment: Fair Interventions PRN's used: None Therapeutic interventions: Provided 1:1 assessment with therapeutic communication with active listening, medication administration/education/monitoring, encouraged to come to meals and attend group, and maintained Q 15 minute safety checks. Restraints/seclusion/emergency medication: N/A Justification of Continued Inpatient Treatment: Patient is unable to formulate a discharge plan other than the situation that has landed him in acute care. Patient cannot make a safe reliable or reasonable discharge plan without third democrat assistance.
[2021-10-24] MEDS: linagliptin 5mg tablet PO SCH (07:52)
[2021-10-24] MEDS: pioglitazone 15mg tablet PO SCH (07:52)
[2021-10-24] MEDS: polyethylene glycol 3350 17gm powd pack PO SCH ×2 (07:53→08:00)
[2021-10-24] MEDS: metFORMIN 500mg tablet PO SCH ×2 (07:53→17:48)
[2021-10-24] MEDS: lisinopril 5mg tablet PO SCH (07:54)
[2021-10-24 08:00] VITALS: BP 94/52
--- NOTE | 2021-10-24 15:08 | NUR ---
Nursing Progress Note: Legal hold: T-Con Client on involuntary status for GD Report received from MIKEL Malik with use of SBAR. Why are they here: Pt. placed on 5150 for GD by [facility] and brought to [facility] as direct admit. Pt. is unable to access basic life necessities such as food, fdc, and clothing, and unable to take medications as prescribed. [facility] wants to pursue conservatorship. Assessment What has happened this shift: Pt sleeping at the start of shift. Pt woke for breakfast. Later observed sitting in the meal room talking with peers. Pt is cooperative with oral medications. He acknowledges education by shaking his head when taking his morning medicine. Pt isolates to his room most of the day. He uses headphones when up walking or sitting in the chair in his room S/I, H/I: Denies A/VH: Denies Sleep: Napped on and off during the day ADL's: Independent Group attendance: Yes Were meds taken: Yes Any med S/E: None noted or reported. Mental Status Exam Appearance: disheveled, unshaven, still wearing personal clothing from yesterday Eye contact: Fair Behavior: Isolative, calm and cooperative Speech: Clear, audible Mood: Euthymic Affect: Congruent with mood. Thought process: Linear. Thought Content: Circumstantial. Cognition: A&O X4 Insight: Fair Judgment: Fair Interventions PRN's used: None Therapeutic interventions: Provided 1:1 assessment with therapeutic communication and active listening, medication administration/education/monitoring, encouraged pt to come to meals and attend group, maintained Q 15 minute safety checks. Restraints/seclusion/emergency medication: N/A Justification of Continued Inpatient Treatment: Patient is unable to formulate a discharge plan other than the situation that has landed him in acute care. Patient cannot make a safe reliable or reasonable discharge plan without third alliance party assistance.
[2021-10-24 19:00] VITALS: BP 159/72
[2021-10-24] MEDS: clonazePAM 1mg tablet PO SCH (20:31)
[2021-10-24] MEDS: traZODone 50mg tablet PO PRN (20:31)
[2021-10-24] MEDS: risperiDONE 0.5mg tablet PO SCH (20:31)
[2021-10-24] MEDS: atorvastatin 20mg tablet PO SCH (20:31)
--- NOTE | 2021-10-25 01:03 | NUR ---
Nursing Progress Note: Zeke Legal hold: T-Con Client on involuntary status for GD Report received from Jon MORIN with use of SBAR. Why are they here: Pt. placed on 5150 for GD by [facility] and brought to [facility] as direct admit. Pt. is unable to access basic life necessities such as food, halfway, and clothing, and unable to take medications as prescribed. [facility] wants to pursue conservatorship. Assessment What has happened this shift: Pt lying in bed awake at change of shift. Pt calm, cooperative and friendly. Pt stated he wanted Pepsi and a cigarette with a smile on his face. Pt denies all MH symptoms. Pt refused snacks and took all HS medications without issue. Pt isolated to his room for the evening. S/I, H/I: Denies A/VH: Denies Sleep: ADL's: Independent Group attendance: Yes Were meds taken: Yes Any med S/E: None noted or reported. Mental Status Exam Appearance: disheveled, unshaven, still wearing personal clothing from yesterday Eye contact: Fair Behavior: Isolative, calm and cooperative Speech: Clear, audible Mood: Euthymic Affect: Congruent with mood. Thought process: Linear. Thought Content: Circumstantial. Cognition: A&O X4 Insight: Fair Judgment: Fair Interventions PRN's used: None Therapeutic interventions: Provided 1:1 assessment with therapeutic communication and active listening, medication administration/education/monitoring, encouraged pt to come to meals and attend group, maintained Q 15 minute safety checks. Restraints/seclusion/emergency medication: N/A Justification of Continued Inpatient Treatment: Patient is unable to formulate a discharge plan other than the situation that has landed him in acute care. Patient cannot make a safe reliable or reasonable discharge plan without third republican assistance.
[2021-10-25 08:00] VITALS: BP 150/60
[2021-10-25] MEDS: polyethylene glycol 3350 17gm powd pack PO SCH (08:00)
[2021-10-25] MEDS: metFORMIN 500mg tablet PO SCH ×2 (08:08→18:03)
[2021-10-25] MEDS: lisinopril 5mg tablet PO SCH (08:09)
[2021-10-25] MEDS: linagliptin 5mg tablet PO SCH (08:09)
[2021-10-25] MEDS: pioglitazone 15mg tablet PO SCH (08:09)
--- NOTE | 2021-10-25 14:22 | NUR ---
Nursing Progress Note: Legal hold: T-Con Client on involuntary status for GD Report received from MIKEL Malik with use of SBAR. Why are they here: Pt. placed on 5150 for GD by [facility] and brought to [facility] as direct admit. Pt. is unable to access basic life necessities such as food, custodial, and clothing, and unable to take medications as prescribed. [facility] wants to pursue conservatorship. Assessment What has happened this shift: Pt sleeping at the start of shift. Prompted pt to come to breakfast. Pt up watching football most of the day. He was seen after lunch listening to headphones in his room. Pt is cooperative with oral medications. Pt is calm and cooperative with treatment. S/I, H/I: Denies A/VH: Denies Sleep: Up most of the shift ADL's: Independent Group attendance: Yes Were meds taken: Yes Any med S/E: None noted or reported. Mental Status Exam Appearance: same as yesterday, green scrub pants and sweatshirt Eye contact: Fair Behavior:Smiles, calm Speech: Clear, audible Mood: Euthymic Affect: Congruent with mood. Thought process: Linear. Thought Content: Circumstantial. Cognition: A&O X4 Insight: Fair Judgment: Fair Interventions PRN's used: None Therapeutic interventions: Provided 1:1 assessment with therapeutic communication and active listening, medication administration/education/monitoring, encouraged pt to come to meals, maintained Q 15 minute safety checks. Restraints/seclusion/emergency medication: N/A Justification of Continued Inpatient Treatment: Patient is unable to formulate a discharge plan other than the situation that has landed him in acute care. Patient cannot make a safe reliable or reasonable discharge plan without third green party assistance.
[2021-10-25 19:26] VITALS: BP 122/57
[2021-10-25] MEDS: risperiDONE 0.5mg tablet PO SCH (20:06)
[2021-10-25] MEDS: clonazePAM 1mg tablet PO SCH (20:06)
[2021-10-25] MEDS: atorvastatin 20mg tablet PO SCH (20:06)
--- NOTE | 2021-10-26 01:49 | NUR ---
Nursing Progress Note: Legal hold: T-Con Client on involuntary status for GD Report received from JENNIFER Webb with use of SBAR. Why are they here: Pt. placed on 5150 for GD by [facility] and brought to [facility] as direct admit. Pt. is unable to access basic life necessities such as food, long term, and clothing, and unable to take medications as prescribed. [facility] wants to pursue conservatorship. Assessment What has happened this shift: The patient was napping at shift change. He easily wakes to tell me he doesn't feel like talking right now. Still in bed at snack, he was woken and made his way to the group room. He quickly ate a snack, then went back to bed. He accepted his HS meds, said he was good, and didn't need anything, then went back to sleep. S/I, H/I: Denies A/VH: Denies Sleep:See sleep assessment ADL's: Independent Group attendance: N/A Were meds taken: Yes Any med S/E: None observed or reported. Mental Status Exam Appearance: Clean but disheveled, unshaven, wearing personal clothing Eye contact: Fair Behavior: Isolated to his room all night. Speech: Clear, audible Mood: Euthymic Affect: Congruent with mood. Thought process: Linear. Thought Content: Circumstantial. Cognition: A&O X4 Insight: Fair Judgment: Fair Interventions PRN's used: None Therapeutic interventions: Provided 1:1 assessment with therapeutic communication with active listening, medication administration/education/monitoring, encouraged to come to meals and attend group, and maintained Q 15 minute safety checks. Restraints/seclusion/emergency medication: N/A Justification of Continued Inpatient Treatment: Patient is unable to formulate a discharge plan other than the situation that has landed him in acute care. Patient cannot make a safe reliable or reasonable discharge plan without third green party assistance.
[2021-10-26] MEDS: lisinopril 5mg tablet PO SCH (07:50)
[2021-10-26] MEDS: polyethylene glycol 3350 17gm powd pack PO SCH (07:50)
[2021-10-26] MEDS: linagliptin 5mg tablet PO SCH (07:51)
[2021-10-26] MEDS: pioglitazone 15mg tablet PO SCH (07:51)
[2021-10-26] MEDS: metFORMIN 500mg tablet PO SCH ×2 (07:51→17:07)
[2021-10-26 08:00] VITALS: BP 100/54
--- NOTE | 2021-10-26 15:12 | NUR ---
Placement Presenting Issues: Pt's been accepted for admission @ [facility] and is awaiting admit date. Interventions: SS had t/c with Rebeca San, Admission Coordinator @ [facility] and f/u re packet sent last week. Per t/c Rebeca requested additional 5-days Notes, MAR, PPD & allergies, SS sent requested info via encrypted e-mail to Rebeca & Archie Avila, [facility]. Zeke's waiting for a bed @ [facility]. Plan: will continue to monitor & engage [facility] & in placement & dcp activities. Val Christopher TUNNEL DRIER OPERATOR Addendum: 10/26/21 at 1518 by Val Christopher Amended: Links added.
--- NOTE | 2021-10-26 15:40 | NUR ---
Nursing Progress Note: Legal hold: TCON Client on involuntary status for GD Report received from nurse with use of SBAR: JENNIFER Brock Why are they here: Pt. placed on 5150 for GD by [facility] and brought to [facility] as direct admit. Pt. is unable to access basic life necessities such as food, fpc, and clothing, and unable to take medications as prescribed. [facility] wants to pursue conservatorship. Assessment What has happened this shift: Pt was up before breakfast. Pt was cooperative with his medications. Pt reports that he is doing, "all right." Pt had a court meeting to set the date for his LPS hearing. Pt denied depression, SI/HI/AH/VH. No unsafe behaviors noted. S/I, H/I: Pt denies A/VH: Pt denies Sleep: Pt slept 7.75 hours last night per noc shift report. ADL's: Independent Group attendance: Yes Were meds taken: Yes Any med S/E: None noted or reported Mental Status Exam Appearance: Clean older appearing male with villalta hair and facial stubble dressed in green unit scrubs, a villalta sweatshirt and slippers. Eye contact: Good Behavior: Pleasant, cooperative, listens to radio headphones, sits in the community room. Speech: Clear, audible, normal rate & rhythm, minimal. Mood: "All right" Affect: Blunted Thought process: Linear Thought Content: Focused on discharge. Cognition: A&O X 4 Insight: Fair Judgment: Fair Interventions PRN's used: None Therapeutic interventions: 1:1 assessment, maintained a safe and therapeutic environment, ensured contract for safety, provided clear and simple instructions, encouraged performance of personal hygiene, encouraged pt to attend groups, provided distraction, redirection,positive reinforcement, and maintained Q 15 minute safety checks. Restraints/seclusion/emergency medication: N/A Justification of Continued Inpatient Treatment: Pt is gravely disabled, he is unable to formulate a plan for food, clothing and fpc. He is on a TCON and the plan is to conserve him. He has been accepted at [facility] pending an available bed.
[2021-10-26 20:00] VITALS: BP 128/63
[2021-10-26] MEDS: atorvastatin 20mg tablet PO SCH (20:01)
[2021-10-26] MEDS: traZODone 50mg tablet PO PRN (20:01)
[2021-10-26] MEDS: clonazePAM 1mg tablet PO SCH (20:01)
[2021-10-26] MEDS: risperiDONE 0.5mg tablet PO SCH (20:01)
--- NOTE | 2021-10-27 01:24 | NUR ---
Nursing Progress Note: Zeke Legal hold: TCON Client on involuntary status for GD Report received from nurse with use of SBAR: Claire RODRIGUEZ Why are they here: Pt. placed on 5150 for GD by [facility] and brought to [facility] as direct admit. Pt. is unable to access basic life necessities such as food, fpc, and clothing, and unable to take medications as prescribed. [facility] wants to pursue conservatorship. Assessment What has happened this shift: Pt was lying in bed resting at change of shift. Pt stated he was good and that he wanted Pepsi and a cigarette. Pt up for snacks in the community room and took all HS medication without issue. Pt denied depression, SI/HI/AH/VH. No unsafe behaviors noted. S/I, H/I: Pt denies A/VH: Pt denies Sleep: ADL's: Independent Group attendance: Yes Were meds taken: Yes Any med S/E: None noted or reported Mental Status Exam Appearance: Clean older appearing male with villalta hair and facial stubble dressed in green unit scrubs, a villalta sweatshirt and slippers. Eye contact: Good Behavior: Pleasant, cooperative, listens to radio headphones, sits in the community room. Speech: Clear, audible, normal rate & rhythm, minimal. Mood: "All right" Affect: Blunted Thought process: Linear Thought Content: Focused on discharge. Cognition: A&O X 4 Insight: Fair Judgment: Fair Interventions PRN's used: None Therapeutic interventions: 1:1 assessment, maintained a safe and therapeutic environment, ensured contract for safety, provided clear and simple instructions, encouraged performance of personal hygiene, encouraged pt to attend groups, provided distraction, redirection,positive reinforcement, and maintained Q 15 minute safety checks. Restraints/seclusion/emergency medication: N/A Justification of Continued Inpatient Treatment: Pt is gravely disabled, he is unable to formulate a plan for food, clothing and fpc. He is on a TCON and the plan is to conserve him. He has been accepted at [facility] pending an available bed.
[2021-10-27 07:15] VITALS: BP 143/58
[2021-10-27] MEDS: metFORMIN 500mg tablet PO SCH ×2 (07:59→17:24)
[2021-10-27] MEDS: pioglitazone 15mg tablet PO SCH (07:59)
[2021-10-27] MEDS: lisinopril 5mg tablet PO SCH (08:00)
[2021-10-27] MEDS: polyethylene glycol 3350 17gm powd pack PO SCH (08:00)
[2021-10-27] MEDS: linagliptin 5mg tablet PO SCH (08:00)
--- NOTE | 2021-10-27 08:30 | NUR ---
Pt attended group today. Today we talked about Resiliency and Hope. Each pt. filled out a paper with what strengths and good qualities they believed they had and then constructed Vision Pages/Collages with inspiring words and pictures to inspire and create intention towards things hoped for in the future. Pt. sat quietly in the group, listening to this Welding Machine Operator Thermit and his peers. He did not share any of his thoughts today. He looked through magazines but did not find any words or picture to construct a vision board. His overall demeanor was calm and pleasant. Brandi Patel LCSW Addendum: 10/27/21 at 0842 by Brandi GOLDBERG This note should be dated for October 26, 2021. SL
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
--- NOTE | 2021-10-27 17:07 | NUR ---
Nursing Progress Note: Zeke Legal hold: TCON Client on involuntary status for GD Report received from nurse with use of SBAR: Rosario RN Why are they here: Pt. placed on 5150 for GD by [facility] and brought to [facility] as direct admit. Pt. is unable to access basic life necessities such as food, senior care, and clothing, and unable to take medications as prescribed. [facility] wants to pursue conservatorship. Assessment What has happened this shift: Pt received sleeping woke for medications and presented as hesitant AEB stating do I need this medication pt. did take after educated on importance of medication. 1:1 assessment completed, pt. reports Im here because medication made me fall his plans are to get to a new place Pt. denies SI,HI. He presents as slightly agitated. Pt. ate his meals in the dining room with cohorts, but often sat with headphones on and didnt interact with others. He did attend group this morning. He spent most of his free time sitting in the common area watching tv both with and without headphones on. S/I, H/I: Denies A/VH: Denies Sleep: 5.5 hours per noc shift report, one nap ADL's: Independent Group attendance: Yes Were meds taken: Yes Any med S/E: None noted or reported Mental Status Exam Appearance: Older male with facial stubble, wearing green unit scrubs. Eye contact: Good Behavior: Pleasant, cooperative. Speech: Clear and audible. Mood: "Im doing all right" Affect: Blunted Thought process: Linear Thought Content: Focused on discharge. Cognition: A&O X 4 Insight: Fair Judgment: Fair Interventions PRN's used: None Therapeutic interventions: 1:1 assessment, maintained a safe and therapeutic environment, ensured contract for safety, provided clear and simple instructions, encouraged performance of personal hygiene, encouraged pt to attend groups, provided distraction, redirection,positive reinforcement, and maintained Q 15 minute safety checks. Restraints/seclusion/emergency medication: N/A Justification of Continued Inpatient Treatment: Pt is gravely disabled, he is unable to formulate a plan for food, clothing and senior care. He is on a TCON and the plan is to conserve him. He has been accepted at [facility] pending an available bed.
[2021-10-27] MEDS: atorvastatin 20mg tablet PO SCH (19:57)
[2021-10-27] MEDS: traZODone 50mg tablet PO PRN (19:57)
[2021-10-27] MEDS: clonazePAM 1mg tablet PO SCH (19:58)
[2021-10-27] MEDS: risperiDONE 0.5mg tablet PO SCH (19:58)
[2021-10-27 20:00] VITALS: BP 124/53
--- NOTE | 2021-10-28 00:17 | NUR ---
Nursing Progress Note: Zeke Legal hold: TCON Client on involuntary status for GD Report received from nurse with use of SBAR: JENNIFER Rangel Why are they here: Pt. placed on 5150 for GD by [facility] and brought to [facility] as direct admit. Pt. is unable to access basic life necessities such as food, senior living, and clothing, and unable to take medications as prescribed. [facility] wants to pursue conservatorship. Assessment What has happened this shift: Pt received lying in his bed. Cooperative with vitals and assessment. States he is bored. After vitals were done pt stated he was tired and didnt feel like talking and could this RN close the door for him. Pt isolated in his room most of this shift. Pt went to bed shortly after snacks. S/I, H/I: Denies A/VH: Denies Sleep: ADL's: Independent Group attendance: Yes Were meds taken: Yes Any med S/E: None noted or reported Mental Status Exam Appearance: Older male with facial stubble, wearing green unit scrubs. Eye contact: Good Behavior: Pleasant, cooperative. Speech: Clear and audible. Mood: "I am bored and tired Affect: Blunted Thought process: Linear Thought Content: Focused on discharge. Cognition: A&O X 4 Insight: Fair Judgment: Fair Interventions PRN's used: None Therapeutic interventions: 1:1 assessment, maintained a safe and therapeutic environment, ensured contract for safety, provided clear and simple instructions, encouraged performance of personal hygiene, encouraged pt to attend groups, provided distraction, redirection,positive reinforcement, and maintained Q 15 minute safety checks. Restraints/seclusion/emergency medication: N/A Justification of Continued Inpatient Treatment: Pt is gravely disabled, he is unable to formulate a plan for food, clothing and senior living. He is on a TCON and the plan is to conserve him. He has been accepted at [facility] pending an available bed.
[2021-10-28 07:07] VITALS: BP 147/66
[2021-10-28] MEDS: polyethylene glycol 3350 17gm powd pack PO SCH (07:30)
[2021-10-28] MEDS: linagliptin 5mg tablet PO SCH (07:31)
[2021-10-28] MEDS: pioglitazone 15mg tablet PO SCH (07:31)
[2021-10-28] MEDS: lisinopril 5mg tablet PO SCH (07:31)
[2021-10-28] MEDS: metFORMIN 500mg tablet PO SCH ×2 (07:31→17:27)
--- NOTE | 2021-10-28 07:31 | NUR ---
Reassessment: Pt currently on CCHO diet w/ mostly 100% intake of meals meeting needs. LBM 10/25 receiving routine Miralax. No nutrition intervention implemented at this time, will continue to monitor. Recs: 1. Continue CCHO diet as tolerated 2. Bowel care per rx 3. Weekly wts Addendum: 10/28/21 at [address] Amended: Links added.
--- NOTE | 2021-10-28 11:11 | NUR ---
Pt. attended group today. We talking about developing coping skills and reviewed a scaling techniques and wrote a Crisis Plan. Pt. engaged in the group. He sat and listened and participate in the Crisis Plan but writing down his plan on the paperwork provided which mainly consisted of him calling his niece. He shared that this is his closest family member and person he feels comfortable contacting when he is struggling. His demeanor was calm and pleasant. He tends to sit at the back of the room and observe his peers and listens intently to what is going on. Brandi Patel, AZUCENA
--- NOTE | 2021-10-28 17:36 | NUR ---
Nursing Progress Note: Legal hold: TCON Client on involuntary status for GD Report received from MIKEL Ponce with use of SBAR. Why are they here: Pt. placed on 5150 for GD by [facility] and brought to [facility] as direct admit. Pt. is unable to access basic life necessities such as food, senior living, and clothing, and unable to take medications as prescribed. [facility] wants to pursue conservatorship. Assessment What has happened this shift: Patient is awake in his room at the start of the shift. Sits in the community room prior to breakfast drinking coffee and reading the daily printout. States he had a nightmare last night that woke him up early and that he feels fatigued. Cooperative with 1:1 assessment and medications. When patient is asked about AH he states, Not today. Eats breakfast in the community room and interacts appropriately with staff and peers. Attends group and spends time in common areas and in his room listening to headphones. S/I, H/I: Denies A/VH: Denies Sleep: States he woke up early at 4am. Takes short naps during the day. ADL's: Independent Group attendance: Yes Were meds taken: Yes Any med S/E: None observed or reported Mental Status Exam Appearance: Older male with facial stubble, wearing green unit scrubs. Eye contact: Good Behavior: Pleasant, cooperative. Speech: Clear, normal rate/ volume, minimal Mood: Good. Affect: Blunted Thought process: Linear Thought Content: Meeting needs. Feeling fatigued and considers napping. Cognition: A&O X 4 Insight: Fair Judgment: Fair Interventions PRN's used: None Therapeutic interventions: 1:1 assessment, maintained a safe and therapeutic environment, ensured contract for safety, provided clear and simple instructions, encouraged performance of personal hygiene, encouraged pt to attend groups, provided distraction, redirection, positive reinforcement, and maintained Q 15 minute safety checks. Restraints/seclusion/emergency medication: N/A Justification of Continued Inpatient Treatment: Pt is gravely disabled, he is unable to formulate a plan for food, clothing and senior living. He is on a TCON and the plan is to conserve him. He has been accepted at [facility] pending an available bed.
[2021-10-28] MEDS: risperiDONE 0.5mg tablet PO SCH (20:22)
[2021-10-28] MEDS: clonazePAM 1mg tablet PO SCH (20:22)
[2021-10-28] MEDS: traZODone 50mg tablet PO PRN (20:22)
[2021-10-28] MEDS: atorvastatin 20mg tablet PO SCH (20:22)
[2021-10-28 20:42] VITALS: BP 158/74
--- NOTE | 2021-10-29 03:57 | NUR ---
Nursing Progress Note: Legal hold: TCON Client on involuntary status for GD Report received from Claire with use of SBAR. Why are they here: Pt. placed on 5150 for GD by [facility] and brought to [facility] as direct admit. Pt. is unable to access basic life necessities such as food, usp, and clothing, and unable to take medications as prescribed. [facility] wants to pursue conservatorship. Assessment What has happened this shift: Patient is isolating in her room following shift change. Patient hasn't showered recently, he does have body odor. Patient encouraged to shower, he agreed and complied. Patient denies S/I, H/I, or any hallucination. Patient states desire to go home. He denies any problems at this point. S/I, H/I: Denies. A/VH: Denies. Sleep: Will tally at 0500 hours. ADL's: Independent, requires prompting. Group attendance: No group on night manager. Were meds taken: Yes, medication compliant. Any med S/E: None observed or reported. Mental Status Exam Appearance: Disheveled looking wearing scrubs. Eye contact: Good. Behavior: Pleasant, cooperative. Speech: Clear, normal rate, rhythm, and tone. Mood: Good. Affect: Blunted. Thought process: Linear. Thought Content: Thinking about family and wanting to go home. Cognition: A&O X4. Insight: Fair. Judgment: Fair. Interventions PRN's used: None Therapeutic interventions: 1:1 assessment, maintained a safe and therapeutic environment, ensured contract for safety, provided clear and simple instructions, encouraged performance of personal hygiene, encouraged pt to attend groups, provided distraction, redirection, positive reinforcement, and maintained Q 15 minute safety checks. Restraints/seclusion/emergency medication: N/A Justification of Continued Inpatient Treatment: Pt is gravely disabled, he is unable to formulate a plan for food, clothing and usp. He is on a TCON and the plan is to conserve him. He has been accepted at [facility] pending an available bed.
[2021-10-29 07:34] VITALS: BP 107/54
[2021-10-29] MEDS: pioglitazone 15mg tablet PO SCH (07:55)
[2021-10-29] MEDS: polyethylene glycol 3350 17gm powd pack PO SCH (07:55)
[2021-10-29] MEDS: metFORMIN 500mg tablet PO SCH ×2 (07:56→17:20)
[2021-10-29] MEDS: lisinopril 5mg tablet PO SCH (07:56)
[2021-10-29] MEDS: linagliptin 5mg tablet PO SCH (07:56)
--- NOTE | 2021-10-29 13:19 | NUR ---
DCP Presenting Issues: Pt's been accepted @ [facility] d/c is pending coordination of transportation via [facility] & [facility]. Interventions: Clinician had t/c w/[facility] DCP, finalized dcp and coordinated transportation for pt. Pt will be picked up by [facility]'s mobile lounge driver on Saturday 11/03 and transported to [facility]. Plan: Pt to d/c Saturday 11/03 with meds. Val Christopher LCSW Addendum: 10/29/21 at 1323 by Val Christopher SS Amended: Links added.
--- NOTE | 2021-10-29 16:49 | NUR ---
Nursing Progress Note: Legal hold: TCON Client on involuntary status for GD Report received from MIKEL Ponce with use of SBAR. Why are they here: Pt. placed on 5150 for GD by [facility] and brought to [facility] as direct admit. Pt. is unable to access basic life necessities such as food, chcf, and clothing, and unable to take medications as prescribed. [facility] wants to pursue conservatorship. Assessment What has happened this shift: Patient is resting quietly in bed at the start of the shift. Up in the community room prior to breakfast interacting appropriately with staff and peers. Cooperative with 1:1 assessment and medications. Appears somewhat anxious about upcoming discharge stating hes not looking forward to moving to a new facility but he is looking forward to being allowed to smoke. Family visits during visitation time. Discharge was planned for today but is delayed until Tuesday. After notified of the delay the patient appears more agitated. In the late morning the patient requests to go outside to have a cigarette insisting that he went out yesterday and should be allowed to today. Able to be redirected. Patient insisting on keeping a Rachna that was gifted to him by family in his room. Spends time sitting in the community room listening to headphones and watching movies. Attends group. In the afternoon the patient is noted checking doors and again insisting on going outside for a cigarette. States, I cant stay in this place. Im about to have a nervous breakdown. Declines nicotine lozenge stating, They dont do any good. Staff continues to attempt to redirect patient with some success. Paces the hallway briefly and listens to headphones. S/I, H/I: Denies A/VH: Denies Sleep: None noted this shift. ADL's: Independent Group attendance: Yes Were meds taken: Yes Any med S/E: None observed or reported Mental Status Exam Appearance: Older male with unkempt hair, clean, wearing green unit scrubs. Eye contact: Good Behavior: Cooperative, guarded Speech: Clear, normal rate/ volume, minimal Mood: Good. Affect: Blunted Thought process: Linear Thought Content: Anxious about upcoming discharge. Cognition: A&O X 3-4, forgetful about situation Insight: Fair Judgment: Fair Interventions PRN's used: None Therapeutic interventions: 1:1 assessment, maintained a safe and therapeutic environment, ensured contract for safety, provided clear and simple instructions, encouraged performance of personal hygiene, encouraged pt to attend groups, provided distraction, redirection, positive reinforcement, and maintained Q 15 minute safety checks. Restraints/seclusion/emergency medication: N/A Justification of Continued Inpatient Treatment: Pt is gravely disabled, he is unable to formulate a plan for food, clothing and chcf. He is on a TCON and the plan is to conserve him. He has been accepted at [facility] pending an available bed.
[2021-10-29 19:00] VITALS: BP 144/66
[2021-10-29] MEDS: atorvastatin 20mg tablet PO SCH (20:08)
[2021-10-29] MEDS: risperiDONE 0.5mg tablet PO SCH (20:08)
[2021-10-29] MEDS: clonazePAM 1mg tablet PO SCH (20:08)
[2021-10-29] MEDS: traZODone 50mg tablet PO PRN (22:20)
--- NOTE | 2021-10-30 02:05 | NUR ---
Nursing Progress Note: Legal hold: TCON Client on involuntary status for GD Report received from JENNIFER Stallworth with use of SBAR. Why are they here: Pt. placed on [address] [facility] and brought to [facility] as direct admit. Pt. is unable to access basic life necessities such as food, mcfp, and clothing, and unable to take medications as prescribed. [facility] wants to pursue conservatorship. Assessment What has happened this shift: The patient was in his room, isolating to his bed, where he spent the night. He chose not to get up for snacks and accepted HS medications in his room. The patient appears to be sad that he is still here and not at home. He wants to smoke wherever he lands. S/I, H/I: Denies. A/VH: Denies. Sleep: See sleep assessment. ADL's: Independent, requires prompting. 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 Were meds taken: Yes. Any med S/E: None observed or reported. Mental Status Exam Appearance: Disheveled looking wearing scrubs. Eye contact: Good. Behavior: Pleasant, cooperative. Speech: Clear, normal rate, rhythm, and tone. Mood: Good. Affect: Blunted. Thought process: Linear. Thought Content: Thinking about family and wanting to go home. Cognition: A&O X4. Insight: Fair. Judgment: Fair. Interventions PRN's used: Trazodone. Therapeutic interventions: 1:1 assessment, maintained a safe and therapeutic environment, ensured contract for safety, provided clear and simple instructions, encouraged performance of personal hygiene, encouraged pt to attend groups, provided distraction, redirection, positive reinforcement, and maintained Q 15 minute safety checks. Restraints/seclusion/emergency medication: N/A Justification of Continued Inpatient Treatment: Pt is gravely disabled, he is unable to formulate a plan for food, clothing and mcfp. He is on a TCON and the plan is to conserve him. He has been accepted at [facility] pending an available bed.
[2021-10-30] MEDS: metFORMIN 500mg tablet PO SCH ×2 (07:14→17:11)
[2021-10-30] MEDS: pioglitazone 15mg tablet PO SCH (07:14)
[2021-10-30] MEDS: linagliptin 5mg tablet PO SCH (07:15)
[2021-10-30] MEDS: polyethylene glycol 3350 17gm powd pack PO SCH (07:21)
[2021-10-30] MEDS: lisinopril 5mg tablet PO SCH (08:00)
[2021-10-30 08:06] VITALS: BP 134/56
--- NOTE | 2021-10-30 16:54 | NUR ---
Nursing Progress Note: Legal hold: TCON Client on involuntary status for GD Report received from MIKEL Jenkins with use of SBAR. Why are they here: Pt. placed on 5150 for GD by [facility] and brought to [facility] as direct admit. Pt. is unable to access basic life necessities such as food, long term, and clothing, and unable to take medications as prescribed. [facility] wants to pursue conservatorship. Assessment What has happened this shift: Patient resting quietly in his room at the start of the shift. Awake prior to breakfast drinking coffee and listening to headphones in the community room. Interacts appropriately with staff and peers. Cooperative with 1:1 assessment and medication. Spends time sitting quietly in his room and in the community room watching TV. S/I, H/I: Denies A/VH: Denies Sleep: None noted this shift ADL's: Independent Group attendance: NA Were meds taken: Yes Any med S/E: None observed or reported Mental Status Exam Appearance: Older male with unkempt hair, clean, wearing green unit scrubs. Eye contact: Good Behavior: Cooperative, guarded Speech: Clear, normal rate/ volume, minimal Mood: Good. Affect: Blunted Thought process: Linear Thought Content: Upcoming discharge and the Rachna his niece gave him for Germán. Cognition: A&O X 3-4, forgetful about situation Insight: Fair Judgment: Fair Interventions PRN's used: None Therapeutic interventions: 1:1 assessment, maintained a safe and therapeutic environment, ensured contract for safety, provided clear and simple instructions, encouraged performance of personal hygiene, encouraged pt to attend groups, provided distraction, redirection, positive reinforcement, and maintained Q 15 minute safety checks. Restraints/seclusion/emergency medication: N/A Justification of Continued Inpatient Treatment: Pt is gravely disabled, he is unable to formulate a plan for food, clothing and long term. He is on a TCON and the plan is to conserve him. He has been accepted at [facility] pending an available bed.
[2021-10-30 20:00] VITALS: BP 148/61
[2021-10-30] MEDS: traZODone 50mg tablet PO PRN (20:13)
[2021-10-30] MEDS: atorvastatin 20mg tablet PO SCH (20:13)
[2021-10-30] MEDS: clonazePAM 1mg tablet PO SCH (20:13)
[2021-10-30] MEDS: risperiDONE 0.5mg tablet PO SCH (20:14)
--- NOTE | 2021-10-30 23:45 | NUR ---
Nursing Progress Note: Legal hold: TCON Client on involuntary status for GD Report received from JENNIFER Stallworth with use of SBAR. Why are they here: Pt. placed on 5150 for GD by [facility] and brought to [facility] as direct admit. Pt. is unable to access basic life necessities such as food, [place] [facility], and clothing, and unable to take medications as prescribed. [facility] wants to pursue conservatorship. Assessment What has happened this shift: Patient was seen in his room listening to headphones. Soon after, he asked for new batteries so he could continue listening. Patient was awake and came to community room for snack time. He returned to his room and accepted HS medications. He denies any problems, except for wanting to leave and smoking. S/I, H/I: Denies. A/VH: Denies. Sleep: See sleep assessment. ADL's: Independent, requires prompting. 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 Were meds taken: Yes. Any med S/E: None observed or reported. Mental Status Exam Appearance: Disheveled looking wearing scrubs. Eye contact: Good. Behavior: Pleasant, cooperative, guarded. Speech: Clear, normal rate, rhythm, and tone. Mood: Good. Affect: Blunted. Thought process: Linear. Thought Content: Thinking about family and wanting to go home. Cognition: A&O X4. Insight: Fair. Judgment: Fair. Interventions PRN's used: Trazodone. Therapeutic interventions: 1:1 assessment, maintained a safe and therapeutic environment, ensured contract for safety, provided clear and simple instructions, encouraged performance of personal hygiene, encouraged pt to attend groups, provided distraction, redirection, positive reinforcement, and maintained Q 15 minute safety checks. Restraints/seclusion/emergency medication: N/A Justification of Continued Inpatient Treatment: Pt is gravely disabled, he is unable to formulate a plan for food, clothing and [place] [facility]. He is on a TCON and the plan is to conserve him. He has been accepted at [facility] pending an available bed.
[2021-10-31] MEDS: traZODone 50mg tablet PO PRN (00:10)
[2021-10-31 07:38] VITALS: BP 151/63
[2021-10-31] MEDS: lisinopril 5mg tablet PO SCH (07:46)
[2021-10-31] MEDS: linagliptin 5mg tablet PO SCH (07:46)
[2021-10-31] MEDS: pioglitazone 15mg tablet PO SCH (07:47)
[2021-10-31] MEDS: polyethylene glycol 3350 17gm powd pack PO SCH (07:47)
[2021-10-31] MEDS: metFORMIN 500mg tablet PO SCH ×2 (07:47→17:49)
--- NOTE | 2021-10-31 17:27 | NUR ---
Nursing Progress Note: Legal hold: TCON Client on involuntary status for GD Report received from MIKEL Jenkins with use of SBAR. Why are they here: Pt. placed on 5150 for GD by [facility] and brought to [facility] as direct admit. Pt. is unable to access basic life necessities such as food, group home, and clothing, and unable to take medications as prescribed. [facility] wants to pursue conservatorship. Assessment What has happened this shift: Patient is awake in his room at the start of the shift. Cooperative with 1:1 assessment and medications. Spends time sitting quietly in his room listening to headphones and in common areas listening to headphones. S/I, H/I: Denies A/VH: Denies Sleep: Takes a short nap in the afternoon ADL's: Independent Group attendance: Yes Were meds taken: Yes Any med S/E: None observed or reported Mental Status Exam Appearance: Older male with unkempt hair, clean, wearing casual clothing appropriate for unit. Eye contact: Good Behavior: Cooperative Speech: Clear, normal rate/ volume, minimal Mood: Good. Affect: Blunted Thought process: Linear Thought Content: Upcoming discharge Cognition: A&O X 3-4, forgetful about situation Insight: Fair Judgment: Fair Interventions PRN's used: None Therapeutic interventions: 1:1 assessment, maintained a safe and therapeutic environment, ensured contract for safety, provided clear and simple instructions, encouraged performance of personal hygiene, encouraged pt to attend groups, provided distraction, redirection, positive reinforcement, and maintained Q 15 minute safety checks. Restraints/seclusion/emergency medication: N/A Justification of Continued Inpatient Treatment: Pt is gravely disabled, he is unable to formulate a plan for food, clothing and group home. He is on a TCON and the plan is to conserve him. He has been accepted at [facility] pending an available bed.
[2021-10-31 19:34] VITALS: BP 134/63
[2021-10-31] MEDS: atorvastatin 20mg tablet PO SCH (21:03)
[2021-10-31] MEDS: risperiDONE 0.5mg tablet PO SCH (21:04)
[2021-10-31] MEDS: clonazePAM 1mg tablet PO SCH (21:04)
--- NOTE | 2021-11-01 03:05 | NUR ---
Nursing Progress Note: Legal hold: TCON Client on involuntary status for GD Report received from MIKEL Stallworth with use of SBAR. Why are they here: Pt. placed on 5150 for GD by [facility] and brought to [facility] as direct admit. Pt. is unable to access basic life necessities such as food, group home, and clothing, and unable to take medications as prescribed. [facility] wants to pursue conservatorship. Assessment What has happened this shift: Pt in room at start of shift. Came to group room for snack remained watching a movie. Pt talked about upcoming Discharge. Pt verbalized some concern about what his new place would be like and if he should quit smoking. Pt talkative making jokes. Sitting at table with female pt seemed to enjoy her company. S/I, H/I: Denies A/VH: Denies Sleep: Asleep at this time ADL's: Independent Group attendance: Yes Were meds taken: Yes Any med S/E: None observed or reported Mental Status Exam Appearance: Older male with unkempt hair, clean, wearing casual clothing appropriate for unit. Eye contact: Good Behavior: Cooperative Speech: Clear, normal rate/ volume, minimal Mood: Good. Affect: Congruent with mood Thought process: Linear Thought Content: Upcoming discharge Cognition: A&O X 3-4, forgetful about situation Insight: Fair Judgment: Fair Interventions PRN's used: None Therapeutic interventions: 1:1 assessment, maintained a safe and therapeutic environment, ensured contract for safety, provided clear and simple instructions, encouraged performance of personal hygiene, encouraged pt to attend groups, provided distraction, redirection, positive reinforcement, and maintained Q 15 minute safety checks. Restraints/seclusion/emergency medication: N/A Justification of Continued Inpatient Treatment: Pt is gravely disabled, he is unable to formulate a plan for food, clothing and group home. He is on a TCON and the plan is to conserve him. He has been accepted at [facility] pending an available bed.
[2021-11-01 07:00] VITALS: BP 133/70
[2021-11-01] MEDS: metFORMIN 500mg tablet PO SCH ×2 (07:55→17:28)
[2021-11-01] MEDS: pioglitazone 15mg tablet PO SCH (07:55)
[2021-11-01] MEDS: lisinopril 5mg tablet PO SCH (07:56)
[2021-11-01] MEDS: polyethylene glycol 3350 17gm powd pack PO SCH (07:57)
[2021-11-01] MEDS: linagliptin 5mg tablet PO SCH (07:57)
--- NOTE | 2021-11-01 17:51 | NUR ---
Nursing Progress Note: Legal hold: TCON Client on involuntary status for GD Report received from MIKEL Jenkins with use of SBAR. Why are they here: Pt. placed on 5150 for GD by [facility] and brought to [facility] as direct admit. Pt. is unable to access basic life necessities such as food, care home, and clothing, and unable to take medications as prescribed. [facility] wants to pursue conservatorship. Assessment What has happened this shift: Received pt. sitting in his bedroom chair listening to music via earphones. Patient drinks coffee early in the morning. Patient joins in his peers for meals and snacks in the community room. Patient is able to make his needs known. Patient watches t.v. with peers in the community room and periodically taking naps. S/I, H/I: Denies A/VH: Denies Sleep: 5.0 hrs. NOC. Short naps. ADL's: Independent Group attendance: NA Were meds taken: Yes Any med S/E: None observed or reported Mental Status Exam Appearance: Older male with unkempt hair, clean, wearing casual clothing appropriate for unit. Eye contact: Good Behavior: Calm and cooperative. Speech: Clear, normal rate/ volume, minimal Mood: Good. Affect: Blunted Thought process: Linear Thought Content: Upcoming discharge Cognition: A&O X 3-4, forgetful about situation Insight: Fair Judgment: Fair Interventions PRN's used: None Therapeutic interventions: 1:1 assessment, maintained a safe and therapeutic environment, ensured contract for safety, provided clear and simple instructions, encouraged performance of personal hygiene, encouraged pt to attend groups, provided distraction, redirection, positive reinforcement, and maintained Q 15 minute safety checks. Restraints/seclusion/emergency medication: N/A Justification of Continued Inpatient Treatment: Pt is gravely disabled, he is unable to formulate a plan for food, clothing and care home. He is on a TCON and the plan is to conserve him. He has been accepted at [facility] pending an available bed.
[2021-11-01 19:33] VITALS: BP 130/62
[2021-11-01] MEDS: atorvastatin 20mg tablet PO SCH (20:35)
[2021-11-01] MEDS: risperiDONE 0.5mg tablet PO SCH (20:35)
[2021-11-01] MEDS: clonazePAM 1mg tablet PO SCH (20:35)
--- NOTE | 2021-11-02 03:01 | NUR ---
Nursing Progress Note: Legal hold: TCON Client on involuntary status for GD Report received from MIKEL Stallworth with use of SBAR. Why are they here: Pt. placed on 5150 for GD by [facility] and brought to [facility] as direct admit. Pt. is unable to access basic life necessities such as food, fdc, and clothing, and unable to take medications as prescribed. [facility] wants to pursue conservatorship. Assessment What has happened this shift: Pt in room at start of shift. Lying in bed listening to headphones at start of shift. Pt smiles and laughs easily. Pt talked about upcoming Discharge. "I don't know how long I'll stay encouraged to give himself time to adjust to his new facility. Pt came to group room for snack stayed and socialized with other pts before going to bed. S/I, H/I: Denies A/VH: Denies Sleep: Asleep at this time ADL's: Independent Group attendance: Yes Were meds taken: Yes Any med S/E: None observed or reported Mental Status Exam Appearance: Older male with unkempt hair, clean, wearing casual clothing appropriate for unit. Eye contact: Good Behavior: Cooperative Speech: Clear, normal rate/ volume, minimal Mood: Good. Affect: Congruent with mood Thought process: Linear Thought Content: Upcoming discharge Cognition: A&O X 3-4, forgetful about situation Insight: Fair Judgment: Fair Interventions PRN's used: None Therapeutic interventions: 1:1 assessment, maintained a safe and therapeutic environment, ensured contract for safety, provided clear and simple instructions, encouraged performance of personal hygiene, encouraged pt to attend groups, provided distraction, redirection, positive reinforcement, and maintained Q 15 minute safety checks. Restraints/seclusion/emergency medication: N/A Justification of Continued Inpatient Treatment: Pt is gravely disabled, he is unable to formulate a plan for food, clothing and fdc. He is on a TCON and the plan is to conserve him. He has been accepted at [facility] pending an available bed.
[2021-11-02 07:00] VITALS: BP 126/69
[2021-11-02] MEDS: pioglitazone 15mg tablet PO SCH (07:42)
[2021-11-02] MEDS: linagliptin 5mg tablet PO SCH (07:43)
[2021-11-02] MEDS: metFORMIN 500mg tablet PO SCH ×2 (07:43→17:24)
[2021-11-02] MEDS: lisinopril 5mg tablet PO SCH (07:45)
[2021-11-02] MEDS: polyethylene glycol 3350 17gm powd pack PO SCH (07:46)
[2021-11-02] MEDS ORDERED: METF-436 PO (10:02)
[2021-11-02] MEDS ORDERED: TRAZ-251 PO (10:02)
[2021-11-02] MEDS ORDERED: LINA5TAB4 PO (10:02)
[2021-11-02] MEDS ORDERED: PIOG30TA72 PO (10:02)
[2021-11-02] MEDS ORDERED: polyethylene glycol 3350 pkt PO (10:02)
[2021-11-02] MEDS ORDERED: CLON1TAB12 PO (10:02)
[2021-11-02] MEDS ORDERED: ATOR20TA PO (10:02)
[2021-11-02] MEDS ORDERED: NICO-907 BC (10:02)
[2021-11-02] MEDS ORDERED: RISP1TAB98 PO (10:02)
[2021-11-02] MEDS ORDERED: LISI5TAB22 PO (10:02)
--- NOTE | 2021-11-02 15:04 | NUR ---
Placement Presenting Issues: Pt's scheduled to d/c tomorrow morning and transition to [facility]. [facility]'s admission coordinator requested signed meds order, 3-5 days notes, lab & COVID test result. Interventions: SS faxed the above requested info to Rebeca Jaswinder @ [facility] [phone] Plan: Tonia hilario will pick pt up tomorrow morning at 9am, pt to d/c from [facility] & transition to [facility]. Val Christopher LCSW Addendum: 11/02/21 at 1507 by Val GOLDBERG Amended: Links added.
--- NOTE | 2021-11-02 17:22 | NUR ---
Nursing Progress Note: Legal hold: TCON Client on involuntary status for GD Report received from MIKEL Ponce, with use of SBAR. Why are they here: Pt. placed on 5150 for GD by [facility] and brought to [facility] as direct admit. Pt. is unable to access basic life necessities such as food, fpc, and clothing, and unable to take medications as prescribed. [facility] wants to pursue conservatorship. Assessment What has happened this shift: Received pt. sleeping in bed at shift change. Patient awakens and sits in his usual spot in the community room. Patient takes his medications without incident. Patient reports that he is looking forward to going to [facility]. RN was teasing patient about being able to smoke, and patient stated that if I dont get to smoke, I will be hitch hiking home. Patient is in a pleasant mood. S/I, H/I: Denies A/VH: Denies Sleep: Napped on and off. ADL's: Independent Group attendance: NA Were meds taken: Yes Any med S/E: None observed or reported Mental Status Exam Appearance: Older male with unkempt hair, clean, wearing casual clothing appropriate for unit. Eye contact: Good Behavior: Calm and cooperative. Speech: Clear, normal rate/ volume, minimal Mood: Good. Affect: Blunted Thought process: Linear Thought Content: Upcoming discharge and smoking. Cognition: A&O X 3-4, forgetful about situation Insight: Fair Judgment: Fair Interventions PRN's used: None Therapeutic interventions: 1:1 assessment, maintained a safe and therapeutic environment, ensured contract for safety, provided clear and simple instructions, encouraged performance of personal hygiene, encouraged pt to attend groups, provided distraction, redirection, positive reinforcement, and maintained Q 15 minute safety checks. Restraints/seclusion/emergency medication: N/A Justification of Continued Inpatient Treatment: Pt is gravely disabled, he is unable to formulate a plan for food, clothing and fpc. He is on a TCON and the plan is to conserve him. He has been accepted at [facility] pending an available bed.
[2021-11-02] MEDS: risperiDONE 0.5mg tablet PO SCH (20:02)
[2021-11-02] MEDS: atorvastatin 20mg tablet PO SCH (20:02)
[2021-11-02] MEDS: clonazePAM 1mg tablet PO SCH (20:02)
[2021-11-02 20:38] VITALS: BP 131/66
--- NOTE | 2021-11-03 01:19 | NUR ---
Nursing Progress Note: Legal hold: TCON Client on involuntary status for GD Report received from JENNIFER Stallworth with use of SBAR. Why are they here: Pt. placed on 5150 for GD by [facility] and brought to [facility] as direct admit. Pt. is unable to access basic life necessities such as food, long term, and clothing, and unable to take medications as prescribed. [facility] wants to pursue conservatorship. Assessment What has happened this shift: The patient was seen in the group room for 1:1. He's in a good mood, smiling, joking, looking forward to tomorrow, when he discharges to [facility]. He just wants to be able to smoke a cigarette. Told him he's already a non-smoker, as long as he's been here, but he still wants to smoke. Patient spent time in his chair with headphones on, until snack time. He received snacks, accepted HS meds, then went to bed. S/I, H/I: Denies. A/VH: Denies. Sleep: See sleep assessment. ADL's: Independent, requires prompting. 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 Were meds taken: Yes. Any med S/E: None observed or reported. Mental Status Exam Appearance: Disheveled looking man with thinning hair wearing street clothes. Eye contact: Good. Behavior: Pleasant, cooperative, guarded. Speech: Clear, normal rate, rhythm, and tone. Mood: Good. Affect: Blunted. Thought process: Linear. Thought Content: Thinking about family and wanting to go home. Cognition: A&O X4. Insight: Fair. Judgment: Fair. Interventions PRN's used: Trazodone. Therapeutic interventions: 1:1 assessment, maintained a safe and therapeutic environment, ensured contract for safety, provided clear and simple instructions, encouraged performance of personal hygiene, encouraged pt to attend groups, provided distraction, redirection, positive reinforcement, and maintained Q 15 minute safety checks. Restraints/seclusion/emergency medication: N/A Justification of Continued Inpatient Treatment: Pt is gravely disabled, he is unable to formulate a plan for food, clothing and long term. He is on a TCON and the plan is to conserve him. He has been accepted at [facility] pending an available bed.
[2021-11-03] MEDS: linagliptin 5mg tablet PO SCH (07:54)
[2021-11-03] MEDS: metFORMIN 500mg tablet PO SCH (07:54)
[2021-11-03] MEDS: pioglitazone 15mg tablet PO SCH (07:54)
[2021-11-03 08:18] VITALS: BP 138/58
[2021-11-03 08:19] VITALS: BP_SYST 138
[2021-11-03] MEDS: lisinopril 5mg tablet PO SCH (08:19)
[2021-11-03] MEDS: polyethylene glycol 3350 17gm powd pack PO SCH (08:19)
--- NOTE | 2021-11-03 09:59 | NUR ---
DISCHARGE NOTE: Patient was discharged from unit at 0935. Pt was picked up and transported to [facility]. Pt left with all personal belongings. Pt hand carried the Rachna doll he received for [facility]. Pt was A&O x4 states "I am going to smoke when I leave here." Pt voiced "I am glad I'm getting out of here.
== END 2021-11-03 10:29 | DRG 750 ==
LOC: ADULT MH 10:51
PROVIDERS: ADMIT Psychiatry & Neurology Psychiatry; ATTEND Psychiatry & Neurology Psychiatry
DX: F25.9 Schizoaffective disorder, unspecified (principal); E11.9 Type 2 diabetes mellitus without complications; E78.5 Hyperlipidemia, unspecified; Z20.822 Contact with and (suspected) exposure to COVID-19; R30.9 Painful micturition, unspecified; K59.00 Constipation, unspecified; I10 Essential (primary) hypertension; Z59.00 Homelessness unspecified; Z79.84 Long term (current) use of oral hypoglycemic drugs; Z87.891 Personal history of nicotine dependence; Z23 Encounter for immunization; Z80.9 Family history of malignant neoplasm, unspecified; Z56.0 Unemployment, unspecified; Z79.899 Other long term (current) drug therapy
CPT/HCPCS: 82948; 87081; 87635; J3490